=== PATIENT | male | born 1940 | race Caucasian/White ===

== ENCOUNTER 2020-02-04 23:05 | Inpatient (IN) | payer MEDICARE, OTHER, SELFPAY ==
[2020-02-04 23:07] VITALS: BP 144/90; PULSE 120; RESP 36; TEMP 36.4; O2SAT 96; BMI 29.5
--- NOTE | 2020-02-04 23:17 | ECG_ITS ---
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 Measurements Intervals [place] Rate: 121 P: ID: -1 QRS: 82 QRSD: 114 T: 0 QT: 304 QTc: 432 Interpretive Statements ATRIAL FLUTTER/TACHYCARDIA WITH RAPID VENTRICULAR RESPONSE MODERATE INTRAVENTRICULAR CONDUCTION DELAY [110+ ms QRS DURATION] NONSPECIFIC ST & T-WAVE ABNORMALITY ABNORMAL RHYTHM ECG Compared to ECG 01/28/2017 22:44:35 Intraventricular conduction delay now present Sinus rhythm no longer present T-wave abnormality still present Electronically Signed On 02-06-2020 16:23:07 CDT by Eduardo Lake M.D. [id number]
--- NOTE | 2020-02-04 23:17 | XR_ITS ---
WS: [id number] PORTABLE CHEST HISTORY: cp COMPARISON: 12/07/2019 Mild pulmonary hyperinflation. Slight elevation of the RIGHT hemidiaphragm. There is also blunting of the RIGHT diaphragm. Ill-defined opacification LEFT upper lobe. There is mild pulmonary congestion. Overall improved aeration since the prior study. Small RIGHT pleural effusion. Cardiac size: Moderately enlarged cardiac silhouette. Mediastinum/Aorta: Mild atherosclerosis aorta. No osseous abnormality seen. XR/XR chest 1V portable [id number] IMPRESSION: 1. Slight improvement in aeration bilaterally. 2. Small RIGHT pleural effusion with a few scattered opacifications which are probably edema or pneumonitis. 3. Moderate cardiomegaly.
--- NOTE | 2020-02-04 23:18 | ED_ITS ---
HPI - SOB/Dyspnea General: Chief Complaint: Shortness of Breath/Dyspnea Stated Complaint: sob Time Seen by Provider: 02/04/20 23:11 Source: patient Mode of arrival: ambulatory Limitations: no limitations History of Present Illness: HPI Narrative: 79-year-old male who states he has had increasing shortness of breath for weeks started having palpitations today as well. Patient states that his shortness of breath is worsened today and he is having difficulty walking without getting short of breath. Patient states he had increased swelling in his legs. He did is on Lasix 20 mg twice daily. Denies any fever or cough. He denies any chest pain. MD elicited complaint: shortness of breath Pertinent past history: congestive heart failure Onset (ago): week(s) Associated symptoms: Reports palpitations; Deny abdominal pain, fever(s), nausea or vomiting Review of Systems Const: Denies: fever(s), chills, body aches or change in appetite Eyes: Denies: blurry vision or eye discomfort ENMT: Denies: throat pain or dental pain Card: Reports: palpitations Resp: Reports: dyspnea GI: Denies: abdominal pain, nausea, vomiting or diarrhea : Denies: dysuria Musc: Denies: neck pain or back pain Skin/Breast: Denies: rash Neuro: Denies: headache(s) Psych: Denies: depression Deandre/Lymph: Denies: easy bruising All/Imm: Denies: urticaria PFSH ED PFSH: Medical History Adult hypothyroidism CHF (congestive heart failure) Gout, unspecified Sleep apnea Surgical History History of hernia repair Family History Other Hypertension Denies family history of Bleeding disorder Social History Smoking and tobacco status: never smoked Second hand smoke exposure: No Smoking risk assessment/counseling performed?: No Alcohol intake: never Desire information about alcohol rehabilitation?: No Counseling given: No Desire information about substance/drug rehabilitation?: No Counseling given: No Household members: spouse Marital status: Current occupational status: retired History of recent travel: No Current gender identity: Male Physical Exam Const: COMMON NORMALS: no acute distress, patient oriented x3 and healthy appearing HENMT: COMMON NORMALS: normocephalic and atraumatic HEAD & SCALP: normocephalic and atraumatic Eye: COMMON NORMALS: Equal, round and reactive pupils present and EOMs intact bilaterally PUPIL: Yes Equal, round and reactive pupils present Neck/C-Spine: COMMON NORMALS: full ROM and supple Chest: COMMONS NORMALS: normal inspection of the chest and normal palpation of entire chest wall Resp: COMMON NORMALS: normal respiratory effort, No retractions, No use of accessory muscles and clear to auscultation bilaterally AUSCULTATION: clear to auscultation bilaterally Cardio: COMMON NORMALS: regular rhythm and No murmurs present (Cardio) RATE: tachycardic RHYTHM: regular rhythm GI: COMMON NORMALS: Normal to inspection, nondistended, normoactive bowel sounds present, Soft to palpation, non-tender and no masses PALPATION: Yes Soft to palpation Extremity: COMMON NORMALS: normal to inspection and full ROM NARRATIVE EXTREMITY EXAM: 2+ edema to lower extremities Neuro: COMMON NORMALS: patient oriented x3, moves all extremities and no focal motor deficits Psych: COMMON NORMALS: mental status grossly normal, Normal thought process present and cooperative THOUGHT PROCESS: Normal thought process present Skin: COMMON NORMALS: no rashes or lesions noted and no wounds GENERAL SKIN EXAM: no rashes or lesions noted Course Vital Signs: Vital signs: Vital Signs Temperature 97.5 F L 02/04/20 23:07 Pulse Rate 127 H 02/05/20 00:31 Respiratory Rate 26 H 02/05/20 00:31 Blood Pressure 125/90 02/05/20 00:31 Pulse Oximetry 99 02/05/20 00:31 MDM - SOB/Dyspnea MDM Narrative: Medical decision making narrative: Samm presents here with shortness of breath with CHF exacerbation. CT shows bilateral pulmonary edema with effusions. Patient given IV Lasix here and is improving on BiPAP. Patient is also in atrial flutter and started on a Cardizem drip. Will admit to the cardiac stepdown unit. Lab Data: Labs: Lab Results 02/04/20 02/04/20 02/04/20 Range/Units 23:25 23:25 23:25 WBC 13.7 H (4.0-10.0) 10^3/ uL RBC 4.91 (4.1-5.3) 10^6/u L Hgb 15.9 (11.7-16.6) g/dL Hct 51.9 (42.0-52.0) % MCV 105.7 H (80-94) fL MCH 32.4 (28.0-34.0) pg MCHC 30.6 (30.0-36.0) g/dL RDW 18.0 H (12.1-15.1) % Plt Count 269 (130-400) 10^3/c mm MPV 9.6 (7.4-10.4) fL Neut % (Auto) 78.4 % Lymph % (Auto) 9.4 % [place] % (Auto) 10.7 % Eos % (Auto) 0.4 % Baso % (Auto) 0.5 % Neut # (Auto) 10.70 H (1.8-7.7) 10^3/u L Lymph # (Auto) 1.3 (0.8-4.8) 10^3/u L [place] # (Auto) 1.5 H (0.2-0.9) 10^3/u L Eos # (Auto) 0.1 (0.0-0.8) 10^3/u L Baso # (Auto) 0.1 (0.0-0.1) 10^3/u L Nucleated RBC % (a uto) 0 % Nucleated RBCs # 0.0 /100WBC PT 17.80 H (10.5-13.3) SECO NDS INR 1.42 H (0.8-1.2) D-Dimer 3.30 H (0-0.59) ug/mIFE U Specimen Type Sample Site ABG pH (7.35-7.45) ABG pCO2 (35-45) mmHg ABG pO2 (80.0-100.0) mmH g ABG HCO3 (22-26) mmol/L ABG Base Excess (-2.0-2.0) mmol/ L Edmundo Test Hematocrit (42-52) % O2 Delivery Device FiO2 % Snath Handle Assembler ID Sodium 139 (136-145) mmol/L Potassium 5.5 H (3.5-5.1) mmol/L Chloride 100 (98-107) mmol/L Carbon Dioxide 23 (22-29) mmol/L Anion Gap 21.5 H (5-19) BUN 34 H (8-23) mg/dL Creatinine 1.4 H (0.7-1.2) mg/dL Glucose 124 H (65-115) mg/dL POC Glucose (70-110) mg/dL Calculated Osmolal ity 287 (285-295) mOsm/k g Calcium 9.9 (8.5-10.5) mg/dL Total Bilirubin 1.6 H (0.15-1.2) mg/dL AST 49 H (0-40) U/L ALT 37 (0-41) U/L Alkaline Phosphata se 235 H (40-130) IU/L Troponin T Baselin e (0-15) ng/L Troponin T 120 Min stebbins (0-15) ng/L Delta Troponin T (0-10) ABS# NT-Pro-B Natriuret Pep 81168 H (0-450) pg/mL Total Protein 7.6 (6.6-8.7) g/dL Albumin 3.9 (3.5-5.2) g/dL Globulin 3.7 (1.3-4.6) g/dL 02/04/20 02/04/20 02/04/20 Range/Units 23:25 23:43 23:50 WBC (4.0-10.0) 10^3/ uL RBC (4.1-5.3) 10^6/u L Hgb (11.7-16.6) g/dL Hct (42.0-52.0) % MCV (80-94) fL MCH (28.0-34.0) pg MCHC (30.0-36.0) g/dL RDW (12.1-15.1) % Plt Count (130-400) 10^3/c mm MPV (7.4-10.4) fL Neut % (Auto) % Lymph % (Auto) % [place] % (Auto) % Eos % (Auto) % Baso % (Auto) % Neut # (Auto) (1.8-7.7) 10^3/u L Lymph # (Auto) (0.8-4.8) 10^3/u L [place] # (Auto) (0.2-0.9) 10^3/u L Eos # (Auto) (0.0-0.8) 10^3/u L Baso # (Auto) (0.0-0.1) 10^3/u L Nucleated RBC % (a uto) % Nucleated RBCs # /100WBC PT (10.5-13.3) SECO NDS INR (0.8-1.2) D-Dimer (0-0.59) ug/mIFE U Specimen Type Arterial Sample Site Radial, left ABG pH 7.44 (7.35-7.45) ABG pCO2 32.8 L (35-45) mmHg ABG pO2 89.5 (80.0-100.0) mmH g ABG HCO3 22.3 (22-26) mmol/L ABG Base Excess -1.0 (-2.0-2.0) mmol/ L Edmundo Test Pos Hematocrit 45.5 (42-52) % O2 Delivery Device Bipap FiO2 35.0 % Snath Handle Assembler ID ellpe Sodium (136-145) mmol/L Potassium (3.5-5.1) mmol/L Chloride (98-107) mmol/L Carbon Dioxide (22-29) mmol/L Anion Gap (5-19) BUN (8-23) mg/dL Creatinine (0.7-1.2) mg/dL Glucose (65-115) mg/dL POC Glucose 113 (70-110) mg/dL Calculated Osmolal ity (285-295) mOsm/k g Calcium (8.5-10.5) mg/dL Total Bilirubin (0.15-1.2) mg/dL AST (0-40) U/L ALT (0-41) U/L Alkaline Phosphata se (40-130) IU/L Troponin T Baselin e 88 H (0-15) ng/L Troponin T 120 Min stebbins (0-15) ng/L Delta Troponin T (0-10) ABS# NT-Pro-B Natriuret Pep (0-450) pg/mL Total Protein (6.6-8.7) g/dL Albumin (3.5-5.2) g/dL Globulin (1.3-4.6) g/dL /20/20 Range/Units 01:37 WBC (4.0-10.0) 10^3/ uL RBC (4.1-5.3) 10^6/u L Hgb (11.7-16.6) g/dL Hct (42.0-52.0) % MCV (80-94) fL MCH (28.0-34.0) pg MCHC (30.0-36.0) g/dL RDW (12.1-15.1) % Plt Count (130-400) 10^3/c mm MPV (7.4-10.4) fL Neut % (Auto) % Lymph % (Auto) % [place] % (Auto) % Eos % (Auto) % Baso % (Auto) % Neut # (Auto) (1.8-7.7) 10^3/u L Lymph # (Auto) (0.8-4.8) 10^3/u L [place] # (Auto) (0.2-0.9) 10^3/u L Eos # (Auto) (0.0-0.8) 10^3/u L Baso # (Auto) (0.0-0.1) 10^3/u L Nucleated RBC % (a uto) % Nucleated RBCs # /100WBC PT (10.5-13.3) SECO NDS INR (0.8-1.2) D-Dimer (0-0.59) ug/mIFE U Specimen Type Sample Site ABG pH (7.35-7.45) ABG pCO2 (35-45) mmHg ABG pO2 (80.0-100.0) mmH g ABG HCO3 (22-26) mmol/L ABG Base Excess (-2.0-2.0) mmol/ L Edmundo Test Hematocrit (42-52) % O2 Delivery Device FiO2 % Snath Handle Assembler ID Sodium (136-145) mmol/L Potassium (3.5-5.1) mmol/L Chloride (98-107) mmol/L Carbon Dioxide (22-29) mmol/L Anion Gap (5-19) BUN (8-23) mg/dL Creatinine (0.7-1.2) mg/dL Glucose (65-115) mg/dL POC Glucose (70-110) mg/dL Calculated Osmolal ity (285-295) mOsm/k g Calcium (8.5-10.5) mg/dL Total Bilirubin (0.15-1.2) mg/dL AST (0-40) U/L ALT (0-41) U/L Alkaline Phosphata se (40-130) IU/L Troponin T Baselin e (0-15) ng/L Troponin T 120 Min stebbins 69.22 H (0-15) ng/L Delta Troponin T -18.78 L (0-10) ABS# NT-Pro-B Natriuret Pep (0-450) pg/mL Total Protein (6.6-8.7) g/dL Albumin (3.5-5.2) g/dL Globulin (1.3-4.6) g/dL Imaging Data^: CT Chest: Attestation: I personally reviewed and interpreted this imaging study as follows: Radiologist's impression: [address] [address] [address] Scan Report Signed Patient: Samm Dong Unit #: [id number] : 1940 Age/Sex: 79 / M ADM Date: 02/04/20 Loc: ER Room/Bed: Attending Dr: Ordering Provider/Ordering MD: Lavell Melchor MD Date of Service: 02/05/20 Procedure(s): CT angio chest PE protcl [id number] Accession Number(s): [id number] Report Number: [id number] PROCEDURE INFORMATION: Exam: CT Angiography Chest With Contrast Exam date and time: 02/05/2020 12:41 AM Age: 79 years old Clinical indication: Abnormal findings; Abnormal diagnostic tests; Elevated d-dimer; Dyspnea TECHNIQUE: Imaging protocol: Computed tomographic angiography of the chest with intravenous contrast. 3D rendering: MIP and/or 3D reconstructed images were created by the technologist. Radiation optimization: All CT scans at this facility use at least one of these dose optimization techniques: automated exposure control; mA and/or kV adjustment per patient size (includes targeted exams where dose is matched to clinical indication); or iterative reconstruction. Contrast material: OMNI 300; Contrast volume: 95 ml; Contrast route: INTRAVENOUS (IV); COMPARISON: CR XR chest 1V portable [id number] 02/04/2020 11:21 PM RADIATION DOSE METRICS: Total DLP (mGy-cm): 629.34 FINDINGS: Limitations: Suboptimal pulmonary arterial enhancement. Motion on multiple slices. Streak artifacts. Pulmonary arteries: No large central pulmonary embolus or suggestion of a segmental embolus on the left. Suboptimal opacification of the right segmental pulmonary arteries, with no obvious large embolus in these areas. Small pulmonary arteries not adequately visualized for evaluation. Aorta: Atherosclerosis. No aortic aneurysm. Inadequate aortic opacification to evaluate for dissection. Lungs: Calcified granulomata in the lungs. Increased interstitial markings and slight patchy haziness in both lungs. Prominent subsegmental atelectasis in the lower right lung. Pleural space: Moderate right and minimal left pleural effusions. No pneumothorax. Heart: Continued prominent cardiomegaly. Small amount of pericardial fluid. Mediastinal space: Small hiatal hernia. Lymph nodes: Enlarged noncalcified node in the right superior mediastinum. Probable enlarged noncalcified pretracheal node. Calcified mediastinal and bilateral hilar nodes also evident. Kidneys and ureters: 1 very small stone in each kidney. Slight bilateral hydronephrosis. At least 3 masses in the right kidney containing higher than water density, the largest measuring about 4 cm. Intraperitoneal space: Ascites. Bones/joints: Thirteen ribs bilaterally. Old compression fractures. Degeneration of a few discs. Left glenohumeral joint degeneration. Soft tissues: Body wall edema. CT/CT angio chest PE protcl [id number] IMPRESSION: 1. Suboptimal pulmonary arterial opacification showing no suggestion of a large central pulmonary embolus. 2. Continued prominent cardiomegaly. No large pericardial effusion. 3. Lung findings suggestive of pulmonary edema. Prominent subsegmental atelectasis in the lower right lung, also. Moderate right and minimal left pleural effusions and body wall edema increasing the likelihood of congestive failure. 4. Ascites. 5. Slight nephrolithiasis. Slight bilateral hydronephrosis. Three right renal masses containing higher than water density. Recommend non-emergent follow-up MR without and with contrast or CT without and with contrast. MR preferred for masses under 1.5 cm. 6. Enlarged noncalcified mediastinal nodes. Calcified mediastinal and bilateral hilar nodes also evident related to the calcified granulomata in the lungs. 7. Small hiatal hernia. Other findings detailed above. EKG Data^: EKG 1: Attestation: I personally reviewed and interpreted this EKG as follows: EKG Interpretation Date: 02/04/20 EKG interpretation time: 23:25 Interpretation: atrial flutter hr [address] or t wave abnormalities qrs 114 qtc 376 EKG 2: Attestation: I personally reviewed and interpreted this EKG as follows: EKG Interpretation Date: 02/05/20 EKG interpretation time: 01:58 Interpretation: atrial flutter hr [address] or t wave abnormalities qrs 109 qtc 390 Critical Care Time Critical Care Time: Critical Care Time: Yes Total Critical Care Time: 36 Attestation: This case had a high probability of a clinically significant, sudden, or life threatening deterioration of this patient's condition which required my full and direct attention, intervention and personal management. Discharge Plan Discharge Patient Disposition: Admitted As Inpatient Admit Provider: Evin Samuels Clinical Impression: CHF (congestive heart failure) Qualifiers: Heart failure type: unspecified Heart failure chronicity: acute on chronic Qualified Code(s): I50.9 - Heart failure, unspecified Atrial flutter Qualifiers: Atrial flutter type: typical Qualified Code(s): I48.3 - Typical atrial flutter Condition: Stable Coding Level of Care Code ED Warehousing Technician for Chg Fwd Exam Comprehensive
[2020-02-04 23:29] LABS: Basophils # 0.1 10^3/uL (0.0-0.1); Basophils % 0.5 %; Eosinophils # 0.1 10^3/uL (0.0-0.8); Eosinophils % 0.4 %; Hematocrit 51.9 % (42.0-52.0); Hemoglobin 15.9 g/dL (11.7-16.6); Lymphocytes # 1.3 10^3/uL (0.8-4.8); Lymphocytes % 9.4 %; Mean Corpuscular HGB Conc 30.6 g/dL (30.0-36.0); Mean Corpuscular Hemoglobin 32.4 pg (28.0-34.0); Mean Corpuscular Volume 105.7 fL (80-94); Mean Platelet Volume 9.6 fL (7.4-10.4); Monocytes # 1.5 10^3/uL (0.2-0.9); Monocytes % 10.7 %; Neutrophils % 78.4 %; Nucleated Red Blood Cells % 0 %; Platelet Count 269 10^3/cmm (130-400); Red Blood Count 4.91 10^6/uL (4.1-5.3); White Blood Count 13.7 10^3/uL (4.0-10.0)
[2020-02-04 23:43] VITALS: BP 139/92; PULSE 127; RESP 15; O2SAT 93
[2020-02-04] MEDS: FUROsemide 10 mg/mL SDV 10mL 60 MG IVP (23:43)
[2020-02-04 23:46] LABS: Glucose Point of Care 113 mg/dL (70-110)
[2020-02-04 23:53] LABS: Troponin(5th) Baseline 88 ng/L (0-15)
[2020-02-05] VITALS (20 sets, daily range): BP systolic 96–140; BP diastolic 56–92; PULSE 76–127; RESP 15–26; TEMP 36.3–37.1; O2SAT 89–99
[2020-02-05] LABS: ABG PCO2 32.8 mmHg (35-45); ABG PH Result 7.44 (7.35-7.45); Arterial Blood Gas Hematocrit 45.5 % (42-52); Blood Gas Allen Test Pos; Blood Gas Sample Site Radial, left; Blood Gas Sample Type Arterial; HCO3 ABG 22.3 mmol/L (22-26); Oxygen Device BIPAP; PO2 ABG 89.5 mmHg (80.0-100.0)
[2020-02-05 00:01] LABS: Alanine Aminotransferase 37 U/L (0-41); Albumin Level 3.9 g/dL (3.5-5.2); Alkaline Phosphatase 235 IU/L (40-130); Aspartate Amino Transferase 49 U/L (0-40); Blood Urea Nitrogen 34 mg/dL (8-23); Calcium 9.9 mg/dL (8.5-10.5); Carbon Dioxide 23 mmol/L (22-29); Chloride 100 mmol/L (98-107); Globulin 3.7 g/dL (1.3-4.6); Glucose 124 mg/dL (65-115); NT Pro B Type Natriuretic Pept 14768 pg/mL (0-450); Osmolality Calculated 287 mOsm/kg (285-295); Sodium 139 mmol/L (136-145); Total Bilirubin 1.6 mg/dL (0.15-1.2); Total Protein 7.6 g/dL (6.6-8.7)
[2020-02-05 00:03] LABS: Anion Gap 21.5 (5-19); Potassium 5.5 mmol/L (3.5-5.1)
[2020-02-05 00:05] LABS: INR 1.42 (0.8-1.2)
--- NOTE | 2020-02-05 00:19 | CTR_ITS ---
PROCEDURE INFORMATION: Exam: CT Angiography Chest With Contrast Exam date and time: 02/05/2020 12:41 AM Age: 79 years old Clinical indication: Abnormal findings; Abnormal diagnostic tests; Elevated d-dimer; Dyspnea TECHNIQUE: Imaging protocol: Computed tomographic angiography of the chest with intravenous contrast. 3D rendering: MIP and/or 3D reconstructed images were created by the technologist. Radiation optimization: All CT scans at this facility use at least one of these dose optimization techniques: automated exposure control; mA and/or kV adjustment per patient size (includes targeted exams where dose is matched to clinical indication); or iterative reconstruction. Contrast material: OMNI 300; Contrast volume: 95 ml; Contrast route: INTRAVENOUS (IV); COMPARISON: CR XR chest 1V portable [id number] 02/04/2020 11:21 PM RADIATION DOSE METRICS: Total DLP (mGy-cm): 629.34 FINDINGS: Limitations: Suboptimal pulmonary arterial enhancement. Motion on multiple slices. Streak artifacts. Pulmonary arteries: No large central pulmonary embolus or suggestion of a segmental embolus on the left. Suboptimal opacification of the right segmental pulmonary arteries, with no obvious large embolus in these areas. Small pulmonary arteries not adequately visualized for evaluation. Aorta: Atherosclerosis. No aortic aneurysm. Inadequate aortic opacification to evaluate for dissection. Lungs: Calcified granulomata in the lungs. Increased interstitial markings and slight patchy haziness in both lungs. Prominent subsegmental atelectasis in the lower right lung. Pleural space: Moderate right and minimal left pleural effusions. No pneumothorax. Heart: Continued prominent cardiomegaly. Small amount of pericardial fluid. Mediastinal space: Small hiatal hernia. Lymph nodes: Enlarged noncalcified node in the right superior mediastinum. Probable enlarged noncalcified pretracheal node. Calcified mediastinal and bilateral hilar nodes also evident. Kidneys and ureters: 1 very small stone in each kidney. Slight bilateral hydronephrosis. At least 3 masses in the right kidney containing higher than water density, the largest measuring about 4 cm. Intraperitoneal space: Ascites. Bones/joints: Thirteen ribs bilaterally. Old compression fractures. Degeneration of a few discs. Left glenohumeral joint degeneration. Soft tissues: Body wall edema. CT/CT angio chest PE protcl [id number] IMPRESSION: 1. Suboptimal pulmonary arterial opacification showing no suggestion of a large central pulmonary embolus. 2. Continued prominent cardiomegaly. No large pericardial effusion. 3. Lung findings suggestive of pulmonary edema. Prominent subsegmental atelectasis in the lower right lung, also. Moderate right and minimal left pleural effusions and body wall edema increasing the likelihood of congestive failure. 4. Ascites. 5. Slight nephrolithiasis. Slight bilateral hydronephrosis. Three right renal masses containing higher than water density. Recommend non-emergent follow-up MR without and with contrast or CT without and with contrast. MR preferred for masses under 1.5 cm. 6. Enlarged noncalcified mediastinal nodes. Calcified mediastinal and bilateral hilar nodes also evident related to the calcified granulomata in the lungs. 7. Small hiatal hernia. Other findings detailed above. Radiation Dose CTDIVOL = (mGy): DLP = 629.34 (mGy-cm)
--- NOTE | 2020-02-05 01:17 | ECG_ITS ---
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 Measurements Intervals [place] Rate: 125 P: CO: -1 QRS: 59 QRSD: 109 T: 0 QT: 316 QTc: 457 Interpretive Statements ATRIAL FLUTTER/TACHYCARDIA WITH RAPID VENTRICULAR RESPONSE NONSPECIFIC ST & T-WAVE ABNORMALITY ABNORMAL RHYTHM ECG Compared to ECG 02/04/2020 23:25:58 Intraventricular conduction delay no longer present T-wave abnormality still present Electronically Signed On 02-06-2020 16:28:04 CDT by Eduardo Lake M.D. [id number]
[2020-02-05 01:57] LABS: Troponin 5 2HR 69.22 ng/L (0-15)
--- NOTE | 2020-02-05 02:23 | PM.HP ---
Providers/Chief Complaint Admitting Physician: Evin Samuels Chief Complaint: sob History of Present Illness Samm Dong is a 79 year old pleasant gentleman brought in for evaluation by his spouse due to progressive shortness of breath over several weeks. Patient has memory problems and so is unable to provide more more history than that his felt he was short of breath and made him go get assessed. His states that close to a month ago he was diagnosed with heart failure. He was started on HCTZ initially by Dr. Hartmann, however, says this was insufficient, and subsequently had to be switched to Lasix. says she has been giving him a 99 mg potassium supplement daily as was told that he may get depleted by diuretics. They both deny that he had had any cough or fever. He denies any chest pain. reports perhaps some on and off chest discomfort previously. Not currently. Neither is aware of him having history of atrial fibrillation in the past. He states that his appetite has been good, however, she states that on and off he has been eating a little bit less recently. He denies any abdominal pain. Neither is aware of him having history of chronic kidney disease. He does not follow with any wound care. is the one changing the dressings on his left ankle. She apply Santyl to it. Keeps it covered. He has a very long history of wounds on that ankle following surgery for fracture repair which she says happened in the s. Subsequently complications including osteomyelitis, and treatments including hyperbaric oxygen chamber. is reluctant about returning to wound care clinic and prefers to follow-up with only a PCP. In ER due to shortness of breath he required initiation of BiPAP support. Received a dose of 60 mg IV Lasix. His respiration is gradually improved. During my visit we took down the BiPAP mask. He is not normally on oxygen. He was saturating in the 90s, drifting down to low 90s through the conversation, however, by the end was getting somewhat more dyspneic, so BiPAP mask was replaced. He is noted with new atrial fibrillation with RVR, heart rates in 120s. Did not improve very much after Cardizem boluses, and so was started on Cardizem drip. He is noted with leukocytosis of 13.7. There is acute kidney injury of chronic kidney disease with creatinine of 1.4. Potassium mildly elevated at 5.5. There is mild elevation of bilirubin at 1.6, AST at 49. Alkaline phosphatase moderately elevated at 235. Baseline normal back in 2017, but no intervening values are available. BNP is elevated at 14,768. First troponin is 88. Second 69.22. He denies any chest pain. Denies any abdominal pain. Says that he is hungry. He says his made him come in due to shortness of breath, but he himself was not overly worried. He went ahead and replace his BiPAP mask shortly after due to progressive return of dyspnea. In ER he has made a liter of urine. CTA of the chest performed in ER due to elevated d-dimer, dyspnea, new A. fib did not show any PE, no focal pneumonia. There is cardiomegaly, congestive changes and edema. Anasarca. Moderate right pleural effusion. Nonobstructing renal stones, mild bilateral hydronephrosis. 3 right renal masses noted incidentally, largest measuring 4 cm. Incidentally noted mediastinal calcified nodes. Small hiatal hernia. Review of Systems Const: Reports: change in appetite (Reported by , not by patient); Denies: fever(s), chills, body aches or malaise Eyes: Denies: change in vision or eye redness ENMT: Denies: throat pain, oral sores or ear or mastoid pain Card: Denies: chest pain, edema, pre-syncope or dyspnea on exertion Resp: Denies: dyspnea, productive cough, change in phlegm color or hemoptysis GI: Denies: abdominal pain, nausea, vomiting, diarrhea, constipation, hematochezia or melena : Denies: flank pain, difficulty urinating, urinary frequency or hematuria Musc: Denies: back pain, joint swelling or joint redness Skin/Breast: Denies: rash, sores or new lesions Neuro: Denies: headache(s), numbness in extremities, weakness in extremities, dizziness, confusion or seizure-like activity Endo: Denies: polyuria or polydipsia Deandre/Lymph: Denies: easy bleeding or purpura All/Imm: Denies: urticaria, throat swelling or tongue swelling Medications/Allergies Home Medications Medication Instructions Recorded Confirmed Last Taken Type thyroid (pork) 60 mg tablet 60 mg PO DAILY #90 tab 01/09/20 01/09/20 Unknown Rx collagenase clostridium histo. 250 1 applic TOPICAL DAILY PRN #30 gm 01/18/20 01/18/20 Unknown Rx unit/gram topical ointment furosemide 20 mg tablet 20 mg PO BID PRN #60 tab 01/18/20 01/18/20 Unknown Rx Allergies Allergy/AdvReac Type Severity Reaction Status Date / Time Penicillins Allergy Unknown Unknown Verified 01/09/20 15:28 vancomycin Allergy Unknown Unknown Verified 01/09/20 15:29 PFSH Acute PFSH: Medical History Adult hypothyroidism CHF (congestive heart failure) Chronic wound of extremity Cognitive dysfunction Gout, unspecified HTN (hypertension) Sleep apnea Surgical History (Updated 02/05/20 @ 03:14 by Evin Samuels MD) History of ankle surgery History of hernia repair Family History Other Hypertension Denies family history of Bleeding disorder Social History Smoking and tobacco status: never smoked Second hand smoke exposure: No Smoking risk assessment/counseling performed?: No Alcohol intake: never Desire information about alcohol rehabilitation?: No Counseling given: No Desire information about substance/drug rehabilitation?: No Counseling given: No Household members: spouse Marital status: Current occupational status: retired History of recent travel: No Current gender identity: Male Vitals/I&O/Wt Last Vital Signs Temp 97.5 F L 02/04/20 23:07 Pulse 124 H 02/05/20 02:16 Resp 23 H 02/05/20 02:16 BP 140/92 02/05/20 02:16 Pulse Ox 93 02/05/20 02:16 Weight last 48 hrs Weight 78.018 kg Physical Exam Const: COMMON NORMALS: no acute distress and patient oriented x3 GENERAL APPEARANCE: frail appearing OTHER: Not a good historian. HENMT: COMMON NORMALS: oropharynx normal Neck/C-Spine: COMMON NORMALS: no JVD Resp: COMMON NORMALS: normal respiratory effort AUSCULTATION: diminished lung sounds Cardio: COMMON NORMALS: no JVD, regular rhythm, S1 normal heart sound present, S2 normal heart sound present and No murmurs present (Cardio) RATE: tachycardic RHYTHM: abnormal rhythm irregularly irregular HEART SOUNDS: S1 normal heart sound present and S2 normal heart sound present GI: COMMON NORMALS: Normal to inspection, nondistended, normoactive bowel sounds present, Soft to palpation and non-tender (No RUQ or other abdominal tenderness on deep palpation.) PALPATION: Yes Soft to palpation Extremity: COMMON NORMALS: no joint enlargement GENERAL: Yes edema (Bilateral lower extremity edema, right greater than left.) Neuro: COMMON NORMALS: patient oriented x3 and moves all extremities Skin: LESIONS: lesion noted (Chronic ulcerations on anterior lower leg, with 4 different size ulcerations with irregular borders, largest about 3 x 3 cm, shallow, with purulent appearing base, no tunneling or undermining.) RASHES: other (Chronic bilateral venous stasis changes.) Data : 02/04/20 23:25 02/04/20 23:25 A&P Assessment and plan (1) Acute respiratory failure with hypoxia: With progressive dyspnea over several weeks. On exam grossly edematous, with anasarca noted on imaging. In acute congestive heart failure. New onset atrial flutter with RVR. There is some leukocytosis, however, he denies any cough, any fever, and there is no focal appearing infiltrate on imaging, and so pneumonia at this time is rather unlikely. Required BiPAP support in ER. Received a dose of Lasix. So far produced 1 L of urine. Respirations have improved. At the time of my visit still was requiring some BiPAP support. Attempt to wean as tolerating down to nasal cannula. He tells me he is not on oxygen at baseline. No PE on CTA. Incidentally noted mediastinal calcified nodes. Status: Acute (2) CHF (congestive heart failure): In active congestive heart failure. Reportedly known congestive heart failure, although I do not see prior echo. He does not have chest pain. Does have some mild troponin elevation which appears to be trending down. Discussed with his cannot exclude that he may have not have had a RI sometime ago. Will complete trend to exclude acute RI. Will check TSH. Treat atrial flutter with RVR. Diuretic therapy with Lasix at this time. Reportedly previously was on HCTZ, but that was not enough to keep the fluid off. Once heart rate is little bit better should be assessed by TTE which is ordered. Status: Chronic Qualifiers: Heart failure chronicity: acute on chronic Heart failure type: unspecified Qualified Code(s): I50.9 - Heart failure, unspecified (3) Atrial flutter: New onset atrial flutter. With RVR. Did not respond well to Cardizem boluses. Started on Cardizem drip. Admitted to [facility]. Mild hyperkalemia. Complete troponin EKG series to exclude myocardial ischemia as the cause. Check TSH. TTE once able to. Would benefit from additional risk stratification with stress testing once he is able to undergo this given new onset atrial flutter to exclude underlying coronary disease. Discussed with with regards to stroke risk. She is concerned starting anticoagulation given he is fallen about 2 times in the past week. He is at elevated risk of bleeding due to this. She prefers to start aspirin at this time. Status: Acute Qualifiers: Atrial flutter type: typical Qualified Code(s): I48.3 - Typical atrial flutter (4) Cholestasis: Appears to perhaps have some cholestasis with moderate elevation of alkaline phosphatase, mild elevation of T bili, AST. He has absolutely no right upper quadrant tenderness. Appetite is unchanged. No fever. No other symptoms to suggest cholecystitis or cholangitis. Perhaps there is some degree of congestive hepatopathy similarly to other affected organ systems due to his CHF. Will assess with right upper quadrant ultrasound. For now due to this is n.p.o. Discussed with the , she is in agreement not to start additional antibiotics at this time as there is no compelling evidence of acute infection. Status: Acute (5) Leukocytosis: Not entirely clear reason for leukocytosis. I do suspect that she is having a degree of cellulitis in his left ankle wound, there is also some purulent discharge at the bases of the shallow ulcerations. I do not see tunneling or undermining. Will request for culture of the purulent material. For now start doxycycline. He does not follow with wound care clinic, and is reluctant to return there. Prefers to follow-up with PCP for now and will consider whether to follow-up with wound care again. Discussed with her to make sure follow-up with regards to this as he may need additional assessment to exclude again recurrence of osteomyelitis in case of persistent purulent drainage. He has known history of osteomyelitis previously as a complication after nonhealing wounds following surgical fracture repair over 2 decades ago. At this time pulmonary infection or hepatobiliary infection is considered less likely. Keep on differential for now, follow-up as needed, and with low threshold for additional assessment of these are other symptoms that may evolve to be suspicious for infection. Status: Acute (6) Chronic wound of extremity: As above. For now we will treat with antibiotic with MRSA coverage given appears to have some wound infection. Culture. Wound care orders, continue treatment with Santyl as they do at home, his reports prior success with this. Absorbent dressing. We will need close outpatient reassessment and possibly additional evaluation for osteomyelitis depending on clinical course. Status: Acute (7) Hyperkalemia: For now n.p.o. Subsequently consider low potassium diet. Hold potassium supplements which says has been giving him due to diuretic therapy. Discussed with her to hold off on these at this time until can follow-up in outpatient clinic with follow-up renal function and potassium levels. Status: Acute (8) Acute kidney injury: Acute kidney injury versus chronic kidney disease. Creatinine 1.4. Baseline is unknown recently. For now unfortunately may be acute kidney injury perhaps secondary to CHF, similarly to congestive changes in his lungs, liver, etc. Possibly right heart failure. For now we will diurese and perhaps may actually see some improvement, but will monitor renal function, I&O. If creatinine is worsening may be a significant limiting factor and predict her prognosis for treatment of his CHF. denies any NSAIDs taken at home. There is mild hydronephrosis noted bilaterally. Nonobstructing calculi. Will assess with kidney and bladder ultrasound to see if there is any bladder dilation. Perhaps may be bladder outflow problem. Status: Acute (9) Troponin level elevated: Follow troponin trend. He is chest pain-free. This appears to be decreasing. With CHF, cannot exclude has not had an RI sometime in the past. For now we will start on aspirin. Check TTE. Once he is able to, discussed with would also benefit from stress testing. She verbalized understanding and agreement. Status: Acute (10) Coagulopathy: Perhaps secondary to congestive hepatopathy. Reassess. Status: Acute (11) Pleural effusion: Incidentally noted pleural effusion on CTA. Suspected due to CHF. Diuresis as above. If respiratory status worsening, consider thoracentesis. Status: Acute (12) Renal mass: Incidentally noted right side 3 renal masses, largest 4 cm. Discussed with his . Will need to be set up with additional follow-up imaging. Status: Acute (13) Anasarca: Secondary to CHF. Treatment as above. Status: Acute (14) Cognitive dysfunction: Possibly development of dementia. Monitor. Status: Acute Attestations Medical Necessity Statement*: Admission of over 2 midnights is going to be needed for assessment of management of respiratory failure with hypoxia, anasarca, CHF with acute kidney injury, cholestasis versus congestive hepatopathy, atrial flutter with RVR, and other medical problems as outlined above. Coding Level of Care Code Acute [employer] Processing Technician for [facility] Diagnoses Acute respiratory failure with hypoxia J96.01 CHF (congestive heart failure) I50.9 Heart failure chronicity: acute on chronic Heart failure type: unspecified Atrial flutter I48.3 Atrial flutter type: typical Cholestasis K83.1 Leukocytosis D72.829 Chronic wound of extremity Hyperkalemia E87.5 Acute kidney injury N17.9 Troponin level elevated R79.89 Coagulopathy D68.9 Pleural effusion J90 Renal mass N28.89 Anasarca R60.1 Cognitive dysfunction F09
--- NOTE | 2020-02-05 02:52 | PC.NURSE ---
verified two home medications. She states these are the only 2 doctor prescribed medications that he takes. states that he takes many over the counter supplements, but stated I will look for them and call you back during daylight hours.
--- NOTE | 2020-02-05 02:54 | ECG_ITS ---
[facility] Test Date: 2020-02-05 Pat Name: Samm Dong Department: Room: 107 Gender: Male Recruiting Specialist: : 1940 Requested By: Evin Samuels Order Number: [id number] Peewee MD: Eduardo Lake M.D. Measurements Intervals [place] Rate: 124 P: ID: -1 QRS: 9 QRSD: 108 T: 240 QT: 320 QTc: 461 Interpretive Statements ATRIAL FLUTTER/TACHYCARDIA WITH RAPID VENTRICULAR RESPONSE NONSPECIFIC ST & T-WAVE ABNORMALITY INTERPRETATION BASED ON A DEFAULT AGE OF 40 YEARS Compared to ECG 02/05/2020 01:58:29 No significant changes Electronically Signed On 02-06-2020 16:28:09 CDT by Eduardo Lake M.D. [id number]
--- NOTE | 2020-02-05 02:56 | US_ITS ---
WS: [id number] Complete ABDOMINAL ULTRASOUND HISTORY: Abnormal liver parameters, COMPARISON: 02/05/2020 Liver: 23.2 cm in length. Liver is moderately enlarged. Surface of the liver is slightly irregular. N o mass or bile duct dilatation. Gallbladder: Normally distended gallbladder with stones. Gallbladder is not overly distended. The wal l is slightly and diffusely thickened. No pericholecystic fluid. Gallbladder wall thickness: 0.5 cm. Pancreas: Normal size and echogenicity. CBD: 0.5 cm. Right kidney: 10.2 cm x 6.2 cm x 5.3 cm. Normal size kidney. Several small cysts associated with the RIGHT kidney. The largest from the superior pole measures 3.8 x 3.9 x 3.0 cm. Some of these low-atte nuation masses are too small to characterize. Left kidney: 9.9 cm x 5.5 cm x 5.4 cm. No solid mass. Cortical cyst mid kidney measures 1.4 x 1.5 x 1.3 cm. Spleen: Spleen is slightly enlarged at 14.1 cm. IVC is dilated. Aorta is poorly visualized. Small amount of ascites and small RIGHT pleural effusion. US/US abdomen complete* [id number] IMPRESSION: 1. Small amount of ascites, small RIGHT pleural effusion. 2. Hepatomegaly and mild splenomegaly. 3. Cholelithiasis. Mild diffuse gallbladder wall thickening may be on the basis of ascites and hepatocellular disease. 4. Bilateral renal cysts. Some of these cystic masses are too small to gerda doty.
--- NOTE | 2020-02-05 03:02 | PC.NURSE ---
Patient arrived to the floor from the ED with [employer] gtt running at 10. Patient is able to answer where he is at and what year it is. Patient is unable to answer to what medications he takes a home and most of the admission questions. Patient has been oriented to his room and call light within reach.
--- NOTE | 2020-02-05 03:18 | USCV_ITS ---
IkerSamm diaz Age: 79 Gender: M : 1940 Exam Date: 02/05/2020 05:58 Ordering Phys: Evin Samuels MD Technologist: Nuris Miranda [place] [facility] [place]: SWOLLEN LEGS HISTORY: SWOLLEN LEGS PROCEDURES: The venous duplex Doppler examination of both lower extremities was performed in the standard fashion. The following venous structures were evaluated: common femoral vein, profunda vein, proximal portion of the greater saphenous vein, superficial femoral vein, and the popliteal vein. In addition, the posterior tibial and peroneal trunk were evaluated. Serial compression, augmentation maneuvers, and spectral Doppler flow evaluation were performed. FINDINGS: Normal 2-D Doppler and augmentation and compressibility throughout the lower extremity venous structures. Additional imaging through the proximal calf veins also reveals no thrombus. Limited evaluation of the greater saphenous vein is patent with no thrombus.. CONCLUSIONS No DVT bilateral lower extremities. Dr. Analy Conley DO (Electronically Signed) Final Date: 05 February 2020 09:16 S
--- NOTE | 2020-02-05 03:25 | PC.NURSE ---
Dr. Samuels notified of being unable to dopple a pulse in right foot, but able to dopple a pulse in left foot. Also notified of heart rate of 125 with Cardizem drip running at 15.
--- NOTE | 2020-02-05 03:28 | USCV_ITS ---
Samm Dong Age: 79 Gender: M : 1940 Exam Date: 02/05/2020 06:29 Ordering Phys: Evin Samuels MD Technologist: Nuris Miranda [place] [facility] [place]ication: AFIB BP: 133 / 83 HR: 79 Rhythm: Atrial fibrillation Technical Quality: Adequate MEASUREMENTS (Male / Female) Normal Values 2D ECHO LV Diastolic Diameter PLAX 4.5 cm 4.2 - 5.9 / 3.9 - 5.3 cm LV Systolic Diameter PLAX 4.1 cm LV Chamber Size 3.4 cm IVS Diastolic Thickness 1.7 cm 0.6 - 1.0 / 0.6 - 0.9 cm IVS Systolic Thickness 1.7 cm LVPW Diastolic Thickness 1.2 cm 0.6 - 1.0 / 0.6 - 0.9 cm LVPW Systolic Thickness 1.7 cm RV Chamber Size 4.0 cm LVOT Diameter 2.0 cm LV Ejection Fraction 2D Teich 20.4 % LV Ejection Fraction MOD 2C 24.6 % LV Ejection Fraction 2C AL 29.0 % LA Diameter 5.7 cm LA Width 4.1 cm LA Height 5.3 cm RA Width 4.3 cm RA Height 6.1 cm Aorta at Sinotubular Diameter 3.3 cm M-MODE LV Diastolic Diameter MM 4.7 cm 4.2 - 5.9 / 3.9 - 5.3 cm LV Systolic Diameter MM 3.6 cm LV Ejection Fraction MM Teich 46.6 % IVS Diastolic Thickness MM 1.1 cm 0.6 - 1.0 / 0.6 - 0.9 cm IVS Systolic Thickness MM 1.5 cm LVPW Diastolic Thickness MM 1.9 cm 0.6 - 1.0 / 0.6 - 0.9 cm LVPW Systolic Thickness MM 2.4 cm RV Diastolic Diameter MM 2.3 cm Aortic Annulus Diameter 3.7 cm LA Ao Ratio MM 1.5 MV E Point Septal Separation 1.6 cm DOPPLER AV Peak Velocity 157.0 cm/s LVOT Peak Velocity 63.0 cm/s AV Area Cont Eq vti 1.1 cm squared AV Area Cont Eq pk 1.3 cm squared MV Area PHT 4.9 cm squared MV E' Velocity 9.0 cm/s Mitral E to MV E' Ratio 10.8 Mitral E to LV E' Lateral Ratio 10.8 Mitral E to LV E' Septal Ratio 10.9 TR Peak Velocity 150.5 cm/s TR Peak Gradient 9.1 mmHg TR Mean Velocity 106.7 cm/s TR Mean Gradient 4.9 mmHg TR Velocity Time Integral 42.7 cm TV Peak E Velocity 70.0 cm/s Right Atrial Pressure 15.0 mmHg Pulmonary Artery Systolic Pressu 24.1 mmHg PV Peak Velocity 28.0 cm/s RV Acceleration Time 0.1 s RV Ejection Time 0.3 s RV AcT/ET 0.3 FINDINGS Left Ventricle Mildly increased left ventricular cavity size. Normal left ventricular wall thickness. Severely decreased left ventricular systolic function. Global left ventricular hypokinesis. Left ventricular ejection fraction is estimated at 25-30 %. Rhythm precludes evaluation of diastolic function. Right Ventricle Mildly increased right ventricular size. Normal right ventricular systolic function. Normal right ventricular systolic pressure. Right Atrium Moderately increased right atrial size. Left Atrium Moderately increased left atrial size. Mitral Valve Structurally normal mitral valve. Mild mitral valve regurgitation. Aortic Valve Structurally normal trileaflet aortic valve. Severe aortic valve calcification. Mild aortic valve stenosis, mean gradient 5.3 mmHg, RAQUEL 1.1 cm squared. This may be low output, low gradient . Mild aortic valve regurgitation. Tricuspid Valve Structurally normal tricuspid valve. Moderate tricuspid valve regurgitation. Pulmonic Valve Pulmonic valve not well visualized. Pericardium Normal pericardium without effusion. Aorta Normal ascending aorta dimension. CONCLUSIONS Mildly increased left ventricular cavity size. Normal left ventricular wall thickness. Severely decreased left ventricular systolic function. Global left ventricular hypokinesis. Left ventricular ejection fraction is estimated at 25-30 %. Rhythm precludes evaluation of diastolic function. Moderately increased right atrial size. Moderately increased left atrial size. Structurally normal mitral valve. Mild mitral valve regurgitation. Structurally normal trileaflet aortic valve. Severe aortic valve calcification. Mild aortic valve stenosis, mean gradient 5.3 mmHg, RAQUEL 1.1 cm squared. This may be low output, low gradient . Mild aortic valve regurgitation. There are no prior echocardiogram studies to compare. Dr. Eduardo Lake MD (Electronically Signed) Final Date: 05 February 2020 08:41 S
[2020-02-05 03:52] LABS: Thyroid Stimulating Hormone 2.88 uIU/mL (0.27-4.20)
--- NOTE | 2020-02-05 03:59 | USCV_ITS ---
Samm Dong Age: 79 Gender: M : 1940 Exam Date: 02/05/2020 07:02 Ordering Phys: Evin Samuels MD Technologist: Efren Rocha Exam Location: [facility] [place] Indication: UNABLE TO DOPPLER RIGHT LEFT Brachial 90.00 mmHg Brachial 89.00 mmHg Pressure (mmHg) Waveform Pressure (mmHg) Waveform 54.00 OPERATOR 90.00 34.00 DPA 57.00 0.60 Ankle/Brachial Index 1.00 40.00 Pre-Exercise Toe Pressure 54.00 0.44 Pre-Exercise Toe/Brachial Index 0.60 FINDINGS Abnormal resting CJ and TBI on the right side Normal resting CJ on the left side with diminished resting TBI CONCLUSIONS 1. Features of moderately severe peripheral artery disease on the right side. 2. Features of mild peripheral artery disease on the left side Dr Laverne Tabares MD [facility] (Electronically Signed) Final Date: 05 February 2020 16:55 S
[2020-02-05] MEDS: heparin 5,000 unit/mL INJ 1 mL 5000 UNIT SUBCUT ×3 (04:19→19:26)
[2020-02-05] MEDS: aspirin 325 mg Tablet PO (04:19)
[2020-02-05] MEDS: doxycycline 100 MG in sodium chloride 0.9% (plus) 100 ML IV ×2 (05:10→15:20)
[2020-02-05] MEDS: metoprolol tartrate 25 mg Tablet PO ×2 (05:10→15:20)
[2020-02-05 06:09] LABS: Alanine Aminotransferase 32 U/L (0-41); Albumin Level 3.1 g/dL (3.5-5.2); Alkaline Phosphatase 194 IU/L (40-130); Anion Gap 16.3 (5-19); Aspartate Amino Transferase 39 U/L (0-40); Blood Urea Nitrogen 33 mg/dL (8-23); Calcium 9.3 mg/dL (8.5-10.5); Carbon Dioxide 26 mmol/L (22-29); Chloride 102 mmol/L (98-107); Globulin 3.8 g/dL (1.3-4.6); Glucose 115 mg/dL (65-115); Magnesium 2.3 mg/dL (1.7-2.3); Osmolality Calculated 288 mOsm/kg (285-295); Potassium 4.3 mmol/L (3.5-5.1); Sodium 140 mmol/L (136-145); Total Bilirubin 1.1 mg/dL (0.15-1.2); Total Protein 6.9 g/dL (6.6-8.7)
[2020-02-05 06:10] LABS: Troponin 5 6HR 66.74 ng/L (0-15)
--- NOTE | 2020-02-05 06:33 | PC.NURSE ---
PT IS RESTING IN BED. PT DENIES PAIN AT THIS TIME. WILL GIVE REPORT TO ON COMING NURSE. PT V/S WNL.
--- NOTE | 2020-02-05 07:36 | PC.NURSE ---
INITIAL ROUNDING/BEDSIDE REPORT Pt is awake,calm, only oriented to name, . Pt noted to get SOB, Spo2- 84%, lips start to get cyanotic, then spo2 starts to back up to 97% on 4 L/min NC. Cardizem drip running at 5, Aflutter, afib w/HR in 70s to 80s. Pt denies any pain or discomfort. Wound ulcers noted on left lower extremity. skin is warm to this areas. 2-3 + pitting edema on LE and Bilateral feet. cool right foot. able to doppled PT on RLE and LLE. bed alarm reset. will keep monitoring. BP-96/56.
--- NOTE | 2020-02-05 08:13 | PC.CHAP ---
Pastoral Care Encounter/Spiritual Assessment Type of Contact [] Declined grinder outside diameter visit [] Patient/Family/Request visit [] Outpatient visit [] Follow-up visit [] Physician referral [] Code/Alert [x] Routine visit [] Staff referral [] Actively dying [x] Patient sleeping [] Family support [] [] Out of room [] Palliative care [] [] Receiving care in room [] Pre-surgical visit [] Trauma [] Long length of stay [] ICU visit [] Other: Relational/Emotional Strength [] Patient feels connected with others/family/visitors/staff [] Distress [] Loneliness/isolation [] Abandonment Spirituality of Patient [] Person of [place] [] Attends Roman Catholic of their [place] [] Believes in Prayer [] Reads Bible or Jehovah'S Witness materials [] There are Spiritual issues to be addressed Calender Inspector Interventions [x] Prayer [] Active listening [] Non-anxious presence [] Spiritual/emotional support [] Crisis/trauma care [] Spiritual counseling [] Bereavement support [] Provided bereavement packet [] Provided Bible/devotional materials [] Provided toy/stuffed animal, coloring book to patient or family member [] Provided Communion [] Anointing/[place] [] Salvation [x] Completed spiritual assessment [] Other: Impact on Illness or Injury [] Angry [] Fearful [] Anxious [] Often cries [] Exhaustion [] Unable to work [] Unable to attend latter-day [] Unable to walk/stand [] Unable to read [] Unable to drive [] Unable to eat/drink [] Unable to sleep [] Unable to be with family [] Patient intubated [] Other: Summary left daily bread in room Time spent with patient
--- NOTE | 2020-02-05 09:07 | P.PN_ITS ---
Subjective Subjective: Interval history: Chart reviewed, had 900 mL additional urine output, hemodynamically stable, rate controlled, afebrile, currently on nasal cannula. Labs noted. Echo report reviewed with noted EF of 20 to 30%. Resting in bed, no apparent distress, currently on Cardizem at 5 mg/hr. able to wean this off by mid to late afternoon, noted coughing spells with water so will request ST evaluation. Rhythm remains atrial fibrillation though after weaning off Cardizem remains rate controlled. Reportedly takes quite a few herbal medications which has brought. Very limited historian. Medications: Reviewed: Yes Medication Review Details: Active Medications Generic Name Dose Route Start Last Admin Trade Name Freq PRN Reason Stop Dose Admin Acetaminophen 650 mg 02/05/20 03:39 Tylenol PO Q6H PRN Mild/Mod Pain Or Temp >/= 101 Aspirin 325 mg 02/05/20 03:30 02/05/20 04:19 Aspirin PO 325 mg DAILY HIRAM Administration Collagenase 1 applic 02/05/20 09:00 Santyl TOPICAL DAILY HIRAM Furosemide 60 mg 02/05/20 11:00 Lasix IVP Q12H HIRAM Heparin Sodium (Be ef Lung) 5,000 unit 02/05/20 03:45 02/05/20 04:19 Heparin SUBCUT 5,000 unit Q8H HIRAM Administration Diltiazem HCl 125 mg/ Sodium 125 mls @ 10 mls/ hr 02/05/20 02:00 02/05/20 06:12 Chloride IV 5 mg/hr .[id number] HIRAM 5 mls/hr Infusion 10 MG/HR Doxycycline Hyclat e 100 mg/ 100 mls @ 100 mls /hr 02/05/20 03:30 02/05/20 06:12 Sodium Chloride IV Infused Q12H HIRAM Infusion Protocol Metoprolol Tartrat e 25 mg 02/05/20 04:00 02/05/20 05:10 Lopressor PO 25 mg Q12H HIRAM Administration Penicillins Allergy (Unknown, Verified 01/09/20 15:28) Unknown vancomycin Allergy (Unknown, Verified 01/09/20 15:29) Unknown Vitals/I&O/Wt Last Vital Signs Temp 98.8 F 02/05/20 07:40 Pulse 79 02/05/20 07:40 Resp 26 H 02/05/20 07:40 BP 104/58 02/05/20 07:47 Pulse Ox 96 02/05/20 07:40 02/04/20 02/05/20 02/05/20 22:59 06:59 14:59 Intake Total 153.583 / 153.583 Output Total 900 / 900 Balance 153.583 / 153.583 -900 / -900 Weight last 48 hrs Weight 82.599 kg Weight 78.018 kg Physical Exam Const: COMMON NORMALS: no acute distress and alert GENERAL APPEARANCE: cooperative, comfortable, frail appearing and appears older than stated age ORIENTATION/CONSCIOUSNESS: Yes awake and Yes oriented to person HENMT: COMMON NORMALS: normocephalic, atraumatic, hearing grossly normal bilaterally and moist oral mucous membranes HEAD & SCALP: normocephalic and atraumatic Eye: COMMON NORMALS: Equal, round and reactive pupils present, EOMs intact bilaterally and conjunctivae normal CONJUNCTIVA: Yes conjunctivae normal PUPIL: Yes Equal, round and reactive pupils present Neck/C-Spine: COMMON NORMALS: full ROM GENERAL: Yes normal visual inspection and Yes trachea midline Resp: COMMON NORMALS: normal respiratory effort, No retractions and No use of accessory muscles EFFORT & INSPECTION: No able to speak in complete sentences, Yes symmetric chest movement and Yes tachypneic AUSCULTATION: crackles and diminished lung sounds OTHER: -dyspneic, mouth breather Cardio: COMMON NORMALS: regular rate, S1 normal heart sound present, S2 normal heart sound present and No murmurs present (Cardio) RATE: regular rate RHYTHM: abnormal rhythm irregularly irregular HEART SOUNDS: S1 normal heart sound present and S2 normal heart sound present GI: COMMON NORMALS: Normal to inspection, nondistended, normoactive bowel sounds present, Soft to palpation and non-tender INSPECTION: Yes central obesity PALPATION: Yes Soft to palpation Extremity: COMMON NORMALS: normal to inspection and full ROM; negative for no pedal edema GENERAL: Yes edema Neuro: COMMON NORMALS: moves all extremities, no focal motor deficits and no sensory deficits noted SENSORIUM/ORIENTATION: Yes alert and Yes oriented to person Psych: COMMON NORMALS: mental status grossly normal, Normal thought process present, cooperative, normal affect and speech normal SPEECH: Yes normal speech THOUGHT PROCESS: Normal thought process present Skin: COMMON NORMALS: no jaundice, no petechiae and no mottling NARRATIVE SKIN EXAM: -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, shallow ulcers scattered on anterior L leg with some areas of superficial slough but no active drainage, no odor noted, tenderness to palpation Data : 02/04/20 23:25 02/05/20 04:59 Micro: Microbiology 02/05/20 07:47 Gram Stain - Final Leg - Drainage A&P Assessment and plan (1) CHF (congestive heart failure): -Noted dyspnea with exertion, progressively worsening shortness of breath, lower extremity edema, weight gain secondary to acute systolic CHF exacerbation as evidenced clinically and with noted BNP elevation greater than 14,000, right pleural effusion, minimal left pleural effusion, pulmonary vascular congestion -Minimal ascites on abdominal ultrasound -IV diuresis with lasix -daily weights, monitor Is & Os -VSS; continue to monitor -Echo: EF=25-30%, global LV hypokinesis, severely decreased LV systolic function, moderate biatrial enlargement, mild MR, mild , mild AR, moderate TR Status: Chronic Qualifiers: Heart failure chronicity: acute on chronic Heart failure type: systolic Qualified Code(s): I50.23 - Acute on chronic systolic (congestive) heart failure (2) Anasarca: -as noted above -venous duplex negative for DVT in bilateral LEs Status: Acute (3) Pleural effusion: -as noted above Status: Acute (4) Acute respiratory failure with hypoxia: -initially required BiPAP, weaned to NC -continue to monitor respiratory status -secondary to acute systolic CHF exacerbation as noted above Status: Acute (5) Troponin level elevated: -troponins noted with significant delta -likely secondary to demand ischemia from acute CHF exacerbation -noted atrial flutter on ECGs -telemetry monitoring -JAVIER -on BB -continue to monitor vital signs Status: Acute (6) Acute kidney injury: -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 -baseline Cr around 1.2 -continue to monitor renal function with diuresis -imaging showing slight nephrolithiasis, mild bilateral hydronephrosis, 3 right renal masses, bilateral renal cysts Status: Acute (7) Renal mass: -Will require follow-up imaging for noted right renal masses as noted above Status: Acute (8) Hyperkalemia: -Potassium normalized, likely secondary to supplementation the patient was taking at home -Replace as needed particularly with aggressive IV diuresis Status: Resolved (9) Atrial flutter: -Appears to be new onset atrial flutter, confirmed on EKG -Telemetry monitoring -Echo as noted above -We will need long-term anticoagulation, [id number] score-4 Status: Acute Qualifiers: Atrial flutter type: typical Qualified Code(s): I48.3 - Typical atrial flutter (10) Adult hypothyroidism: -TSH wnl -resume thyroid replacement Status: Chronic (11) HTN (hypertension): -VSS; continue to monitor Status: Chronic Qualifiers: Hypertension type: essential hypertension Qualified Code(s): I10 - Essential (primary) hypertension (12) Chronic wound of extremity: -seems to have developed s/p ORIF for fracture and subsequent osteomyelitis -wound care as needed (Santyl, absorbent dressing) -due to some noted drainage, wound culture and gram stain ordered; on empiric doxycyline -bilateral arterial doppler: normal resting CJ on L, abnormal resting CJ on R consistent with moderately severe PAD, mild PAD on L Status: Chronic Additional A&P Information -Chronic macrocytic anemia; baseline Hg is about 11; current Hg wnl, continue to monitor -noted D-dimer elevation; no PE per CTA, negative venous duplex -Leukocytosis, continue to monitor WBC, on doxycycline -Coagulopathy; noted ALP elevation with otherwise normal LFTs though initially abnormal which could be due to hepatic congestion, has not been on AC -Short term memory impairment; potentially due to dementia -Obesity: BMI-31 kg/m2 -currently NPO; ST evaluation due to choking episodes with water; start on mechanical soft diet for now -DVT ppx with heparin -Dispo: home -Code status: FULL code Attestations Medical Necessity Statement*: Patient requires hospitalization for continued aggressive IV diuresis secondary to acute CHF exacerbation, continued monitoring of hemodynamic and respiratory status. Time Spent in Patient Care: Greater than 35 minutes (>than 50% of time spent in counselling and/or direct pt care on unit) . Coding Level of Care Code Acute Printed Circuit Boards Beveler for g Fwd Exam Comprehensive Diagnoses CHF (congestive heart failure) I50.23 Heart failure chronicity: acute on chronic Heart failure type: systolic Anasarca R60.1 Pleural effusion J90 Acute respiratory failure with hypoxia J96.01 Troponin level elevated R79.89 Acute kidney injury N17.9 Renal mass N28.89 Hyperkalemia E87.5 Atrial flutter I48.3 Atrial flutter type: typical Adult hypothyroidism E03.9 HTN (hypertension) I10 Hypertension type: essential hypertension Chronic wound of extremity
--- NOTE | 2020-02-05 11:30 | PC.NURSE ---
Wound care dressing change Cleanse with saline irrigation. Applied Santyl gel and covered wth Sivercel non-adherent Alginate dressing, then wrap with Kerlix. Pls see wound assessment.
[2020-02-05] MEDS: FUROsemide 10 mg/mL SDV 10mL 60 MG IVP ×2 (11:34→23:18)
[2020-02-05] MEDS: collagenase oint 30 gm 1 APPLIC TOPICAL (11:44)
--- NOTE | 2020-02-05 11:45 | PC.NURSE ---
medication Dr. Castro notified on his HR- in the 70s to 80s. was on cardizem drip at 5 mcg/min. received telephone order to stop Cardizem drip.
--- NOTE | 2020-02-05 14:58 | PC.NURSE ---
Addendum entered by Mey Isaac RN 02/05/20 15:06: Doctor informed regarding pt's home herbal supplements he takes according to . Original Note: Talk to for pt's home med reconciliation review Zule[place] pt's mentioned plenty of herbal medicines that patient takes. 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 As much as I can understand per pt takes, 1. Adilene herb for bladder health 2. oregano oil for anti-viral/anti-fungal 3. ALLIBIOTIC WITH GARLIC, OREGANO, OLIVE LEAF, ELDERBERRY IN IT 4. WILD LETTUCE HERB.PLEASE SEE MED REC.
--- NOTE | 2020-02-05 17:10 | PC.NURSE ---
wesley in room
--- NOTE | 2020-02-05 18:36 | PC.PHAR ---
Pt started to choke/aspirate when he drinks water Pt HOB was elevated. And just finished eating his dinner 100% with his at bedside. Pt requested water and noted pt is started to cough and choke the water. he started to cough hard and his face turned pinkish purple. He is started to have inspiratory and expiratory wheezing. SpO2 is 88-91% on 2 L. Instructed pt to keep coughing hard. He did teach back shortly. Discuss this condition and treatment plans to MD via telephone and received telephone orders to start pt on Duoneb q6h PRN, Speech Therapy for Evaluation and Aspiration Precaution. Keep monitoring pt. Read back orders.
--- NOTE | 2020-02-05 18:43 | PC.NURSE ---
Notified RT for Breathing treatment
[2020-02-05] MEDS: ipratropium-albuterol 3 mL Neb INHALATION (20:04)
--- NOTE | 2020-02-05 21:54 | PC.NURSE ---
PT RESTING IN BED AT BEGINNING OF SHIFT. PT DENIED PAIN. BED ALARM WAS RESET. PT TRIED TO GET UP WITHOUT ASSISTANCE. THIS NURSE AND GAS TURBINE MECHANIC WENT TO ROOM TO ASSIST PT. PT TRANSFERRED WELL TO BS. PT IS MORE CONFUSED AT THIS TIME. WAS NOTIFIED OF HR 126. PT MOVED TO 111-2 D/T TRYING TO GET OUT OF BED. WILL CONTINUE TO MONITOR.
[2020-02-06] VITALS (8 sets, daily range): BP systolic 97–142; BP diastolic 53–88; PULSE 95–126; RESP 16–30; TEMP 36.4–37; O2SAT 90–97
[2020-02-06] MEDS: doxycycline 100 MG in sodium chloride 0.9% (plus) 100 ML IV ×2 (03:12→14:56)
[2020-02-06] MEDS: heparin 5,000 unit/mL INJ 1 mL 5000 UNIT SUBCUT ×3 (03:12→19:17)
[2020-02-06] MEDS: metoprolol tartrate 25 mg Tablet PO ×2 (03:20→16:13)
[2020-02-06] MEDS: sodium chloride 0.9% (100 ml) 100 ML 10 ML (03:25)
--- NOTE | 2020-02-06 03:47 | PC.NURSE ---
PT IS COMBATIVE. PT IS TRYING TO PUNCH LAB TECHS. PT WAS REDIRECTED. WILL CONTINUE TO MONITOR.
[2020-02-06 04:10] LABS: Basophils # 0.1 10^3/uL (0.0-0.1); Basophils % 0.5 %; Eosinophils # 0.1 10^3/uL (0.0-0.8); Eosinophils % 0.5 %; Hematocrit 42.6 % (42.0-52.0); Hemoglobin 13.1 g/dL (11.7-16.6); Lymphocytes # 0.9 10^3/uL (0.8-4.8); Lymphocytes % 6.6 %; Mean Corpuscular HGB Conc 30.8 g/dL (30.0-36.0); Mean Corpuscular Hemoglobin 32.5 pg (28.0-34.0); Mean Corpuscular Volume 105.7 fL (80-94); Monocytes # 1.4 10^3/uL (0.2-0.9); Monocytes % 10.4 %; Neutrophils # 10.65 10^3/uL (1.8-7.7); Neutrophils % 81.2 %; Nucleated Red Blood Cells % 0 %; Platelet Count 197 10^3/cmm (130-400); Red Blood Count 4.03 10^6/uL (4.1-5.3); Red Cell Distribution Width 17.8 % (12.1-15.1); White Blood Count 13.1 10^3/uL (4.0-10.0)
[2020-02-06 04:27] LABS: INR 1.37 (0.8-1.2)
[2020-02-06 04:44] LABS: Alanine Aminotransferase 34 U/L (0-41); Albumin Level 2.8 g/dL (3.5-5.2); Alkaline Phosphatase 168 IU/L (40-130); Anion Gap 17.8 (5-19); Aspartate Amino Transferase 43 U/L (0-40); Blood Urea Nitrogen 35 mg/dL (8-23); Calcium 8.6 mg/dL (8.5-10.5); Carbon Dioxide 26 mmol/L (22-29); Chloride 102 mmol/L (98-107); Globulin 3.7 g/dL (1.3-4.6); Glucose 118 mg/dL (65-115); Osmolality Calculated 292 mOsm/kg (285-295); Potassium 3.8 mmol/L (3.5-5.1); Sodium 142 mmol/L (136-145); Total Bilirubin 0.9 mg/dL (0.15-1.2); Total Protein 6.5 g/dL (6.6-8.7)
--- NOTE | 2020-02-06 06:13 | PC.NURSE ---
PT IS RESTING IN BED. PT HAD TO CONSTANTLY BE REDIRECTED TO LEAVE O2 ON, PULSE OX, TELE, AND TO LEAVE CATHETER AND IV ALONE. PT DID HAVE SPELLS OF COMBATIVENESS. PT LOOKS CYNOTIC O2 SAT ABOVE 95%. VS WNL. WILL GIVE REPORT TO ON COMING NURSE.
--- NOTE | 2020-02-06 07:00 | PC.NURSE ---
Pt pulled his IV's, tried to pull his blunt catheter, tele patches and won't keep his oxygen in his nose Per Night bedside report, pt was moved closer to the nurses station due to pt's increase agitation, attempting to get out of bed, HR has been sustaining in 123s afib since [address] on the pt's 2 IV's were out, patient is restless and confused but easily redirected. Order received for 1:1 sitter. PROCESS EXPERT and I help pt with bedbath, New IV inserted on right FA #[id number]. 1 attempt. Tolerated procedure well. Repositioned pt on right side lying. Called house sup for 1:1 sitter order. Bed alarm reset.
[2020-02-06] MEDS: collagenase oint 30 gm 1 APPLIC TOPICAL (08:41)
--- NOTE | 2020-02-06 09:27 | P.PN_ITS ---
Subjective Subjective: Interval history: Had 2000 mL urine output overnight, normotensive, tachycardic in the 120s, on 4 L nasal cannula. Pulled out IV access and unable to maintain supplemental oxygen so sitter requested and moved closer to nursing station. Resting quietly in bed, pending ST evaluation. Medications: Reviewed: Yes Medication Review Details: Active Medications Generic Name Dose Route Start Last Admin Trade Name Freq PRN Reason Stop Dose Admin Acetaminophen 650 mg 02/05/20 03:39 Tylenol PO Q6H PRN Mild/Mod Pain Or Temp >/= 101 Albuterol/Ipratrop ium 3 ml 02/05/20 18:28 02/05/20 20:04 Duoneb INHALATION 3 ml Q6H.RESPIRATORY P RN Administration SHORTNESS OF ELIZABETH TH Aspirin 325 mg 02/05/20 03:30 02/05/20 04:19 Aspirin PO 325 mg DAILY HIRAM Administration Collagenase 1 applic 02/05/20 09:00 02/06/20 08:41 Santyl TOPICAL 1 applic DAILY HIRAM Administration Furosemide 60 mg 02/05/20 11:00 02/05/20 23:18 Lasix IVP 60 mg Q12H HIRAM Administration Heparin Sodium (Be ef Lung) 5,000 unit 02/05/20 03:45 02/06/20 03:12 Heparin SUBCUT 5,000 unit Q8H HIRAM Administration Doxycycline Hyclat e 100 mg/ 100 mls @ 100 mls /hr 02/05/20 03:30 02/06/20 03:12 Sodium Chloride IV 100 mls/hr Q12H HIRAM Administration Protocol Metoprolol Tartrat e 25 mg 02/05/20 04:00 02/06/20 03:20 Lopressor PO 25 mg Q12H HIRAM Administration Penicillins Allergy (Unknown, Verified 01/09/20 15:28) Unknown vancomycin Allergy (Unknown, Verified 01/09/20 15:29) Unknown Vitals/I&O/Wt Last Vital Signs Temp 97.5 F L 02/06/20 07:04 Pulse 123 H 02/06/20 07:04 Resp 18 02/06/20 07:04 BP 142/88 02/06/20 07:04 Pulse Ox 97 02/06/20 07:04 02/05/20 02/06/20 02/06/20 22:59 06:59 14:59 Intake Total 322 / 585.667 Output Total 1550 / 2450 1650 / 4100 750 / 750 Balance -1228 / -1864.333 -1650 / -3514.333 -750 / -750 Weight last 48 hrs Weight 80.014 kg Weight 82.599 kg Weight 78.018 kg Physical Exam Const: COMMON NORMALS: no acute distress GENERAL APPEARANCE: comfortable, frail appearing and appears older than stated age OTHER: -resting quietly in bed HENMT: COMMON NORMALS: normocephalic, atraumatic, hearing grossly normal bilaterally and moist oral mucous membranes HEAD & SCALP: normocephalic and atraumatic Eye: COMMON NORMALS: Equal, round and reactive pupils present, EOMs intact bilaterally and conjunctivae normal CONJUNCTIVA: Yes conjunctivae normal PUPIL: Yes Equal, round and reactive pupils present Neck/C-Spine: COMMON NORMALS: full ROM GENERAL: Yes normal visual inspection and Yes trachea midline Resp: COMMON NORMALS: normal respiratory effort, No retractions and No use of accessory muscles EFFORT & INSPECTION: No able to speak in complete sentences, Yes symmetric chest movement and Yes tachypneic AUSCULTATION: crackles and diminished lung sounds OTHER: -dyspneic, mouth breather -on 3 L NC Cardio: COMMON NORMALS: S1 normal heart sound present, S2 normal heart sound present and No murmurs present (Cardio) RATE: tachycardic RHYTHM: abnormal rhythm irregularly irregular HEART SOUNDS: S1 normal heart sound present and S2 normal heart sound present GI: COMMON NORMALS: Normal to inspection, nondistended, normoactive bowel sounds present, Soft to palpation and non-tender INSPECTION: Yes central obesity PALPATION: Yes Soft to palpation : BLADDER/KIDNEY EXAM: Yes catheter in place Catheter type (Male): urethral Extremity: COMMON NORMALS: normal to inspection and full ROM; negative for no pedal edema GENERAL: Yes edema Neuro: COMMON NORMALS: moves all extremities, no focal motor deficits and no sensory deficits noted Psych: COMMON NORMALS: mental status grossly normal, Normal thought process present, cooperative, normal affect and speech normal SPEECH: Yes normal speech THOUGHT PROCESS: Normal thought process present Skin: COMMON NORMALS: no jaundice, no petechiae and no mottling NARRATIVE SKIN EXAM: -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, shallow ulcers scattered on anterior L leg with some areas of superficial slough but no active drainage, no odor noted, tenderness to palpation Data : 02/06/20 03:00 02/06/20 03:00 Micro: Microbiology 02/05/20 07:47 Gram Stain - Final Leg - Drainage A&P Assessment and plan (1) CHF (congestive heart failure): -Noted dyspnea with exertion, progressively worsening shortness of breath, lower extremity edema, weight gain secondary to acute systolic CHF exacerbation as evidenced clinically and with noted BNP elevation greater than 14,000, right pleural effusion, minimal left pleural effusion, pulmonary vascular congestion -Minimal ascites on abdominal ultrasound -IV diuresis with lasix; so far has had a negative fluid balance of 4.1 L -daily weights, monitor Is & Os -VSS; continue to monitor -Echo: EF=25-30%, global LV hypokinesis, severely decreased LV systolic function, moderate biatrial enlargement, mild MR, mild , mild AR, moderate TR Status: Chronic Qualifiers: Heart failure chronicity: acute on chronic Heart failure type: systolic Qualified Code(s): I50.23 - Acute on chronic systolic (congestive) heart failure (2) Anasarca: -as noted above -venous duplex negative for DVT in bilateral LEs Status: Acute (3) Pleural effusion: -as noted above Status: Acute (4) Acute respiratory failure with hypoxia: -initially required BiPAP, weaned to NC -continue to monitor respiratory status -secondary to acute systolic CHF exacerbation as noted above Status: Acute (5) Troponin level elevated: -troponins noted with significant delta -likely secondary to demand ischemia from acute CHF exacerbation -noted atrial flutter on ECGs -telemetry monitoring -JAVIER -on BB -continue to monitor vital signs -Echo noted above Status: Acute (6) Acute kidney injury: -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 -baseline Cr around 1.2 -continue to monitor renal function with diuresis -imaging showing slight nephrolithiasis, mild bilateral hydronephrosis, 3 right renal masses, bilateral renal cysts Status: Acute (7) Renal mass: -Will require follow-up imaging for noted right renal masses as noted above Status: Acute (8) Hyperkalemia: -Potassium normalized, likely secondary to supplementation the patient was taking at home -Replace as needed particularly with aggressive IV diuresis Status: Resolved (9) Atrial flutter: -Appears to be new onset atrial flutter, confirmed on EKG -Telemetry monitoring -Echo as noted above -We will need long-term anticoagulation, [id number] score-4 Status: Acute Qualifiers: Atrial flutter type: typical Qualified Code(s): I48.3 - Typical atrial flutter (10) Adult hypothyroidism: -TSH wnl -resume thyroid replacement Status: Chronic (11) HTN (hypertension): -VSS; continue to monitor Status: Chronic Qualifiers: Hypertension type: essential hypertension Qualified Code(s): I10 - Essential (primary) hypertension (12) Chronic wound of extremity: -seems to have developed s/p ORIF for fracture and subsequent osteomyelitis -wound care as needed (Santyl, absorbent dressing) -due to some noted drainage, wound culture and gram stain ordered; on empiric doxycyline -bilateral arterial doppler: normal resting JC on L, abnormal resting CJ on R consistent with moderately severe PAD, mild PAD on L Status: Chronic Additional A&P Information -Chronic macrocytic anemia; baseline Hg is about 11; current Hg wnl, continue to monitor -noted D-dimer elevation; no PE per CTA, negative venous duplex -Leukocytosis, continue to monitor WBC, on doxycycline -Coagulopathy; noted ALP elevation with otherwise normal LFTs though initially abnormal which could be due to hepatic congestion, has not been on AC -Short term memory impairment; potentially due to dementia; requiring 1:1 sitter -Obesity: BMI-30 kg/m2 -ST evaluation due to choking episodes with water; start on mechanical soft diet for now -DVT ppx with heparin -Dispo: working on SNF placement, [facility] is [facility] choice -Code status: FULL code Attestations Medical Necessity Statement*: Patient requires hospitalization for continued IV diuresis secondary to acute CHF exacerbation. Time Spent in Patient Care: 16 - 35 minutes (>than 50% of time spent in counselling and/or direct pt care on unit) . Coding Level of Care Code Acute Pest Control Service Sales Agent for [facility] Fwd Exam Comprehensive Diagnoses CHF (congestive heart failure) I50.23 Heart failure chronicity: acute on chronic Heart failure type: systolic Anasarca R60.1 Pleural effusion J90 Acute respiratory failure with hypoxia J96.01 Troponin level elevated R79.89 Acute kidney injury N17.9 Renal mass N28.89 Hyperkalemia E87.5 Atrial flutter I48.3 Atrial flutter type: typical Adult hypothyroidism E03.9 HTN (hypertension) I10 Hypertension type: essential hypertension Chronic wound of extremity
--- NOTE | 2020-02-06 10:15 | PC.NURSE ---
Sitter at bedside RN from OB for sitting 1:1. Using paper charting for q15 mins.
[2020-02-06] MEDS: FUROsemide 10 mg/mL SDV 10mL 60 MG IVP ×2 (10:23→23:45)
--- NOTE | 2020-02-06 10:40 | PC.NURSE ---
Physician Rounding at bedside, Informed her that patient has been sleeping and resting since this morning. Sitter is at bedside. Ask her regarding oral medicines for this morning. Doctor wants me to hold meds orally and let patient rest and sleep and await for speech therapy evaluation. Aspirin PO held.
--- NOTE | 2020-02-06 10:44 | PC.NURSE ---
Dr. Lora at bedside assessing patient, waiting for speech consult to evaluate swallowing abilities. Reviewed labs and Vital Signs continue with current orders at this time.
--- NOTE | 2020-02-06 11:13 | PC.CHAP ---
Pastoral Care Encounter/Spiritual Assessment Type of Contact [] Declined treating engineer visit [] Patient/Family/Request visit [] Outpatient visit [] Follow-up visit [] Physician referral [] Code/Alert [] Routine visit [] Staff referral [] Actively dying [] Patient sleeping [] Family support [] [] Out of room [] Palliative care [] [] Receiving care in room [] Pre-surgical visit [] Trauma [] Long length of stay [] ICU visit [x] Other: not able to communicate Relational/Emotional Strength [] Patient feels connected with others/family/visitors/staff [] Distress [] Loneliness/isolation [] Abandonment Spirituality of Patient [] Person of [place] [] Attends Shinto of their [place] [] Believes in Prayer [] Reads Bible or Zoroastrian materials [] There are Spiritual issues to be addressed Freezer Unloader Interventions [] Prayer [] Active listening [] Non-anxious presence [] Spiritual/emotional support [] Crisis/trauma care [] Spiritual counseling [] Bereavement support [] Provided bereavement packet [] Provided Bible/devotional materials [] Provided toy/stuffed animal, coloring book to patient or family member [] Provided Communion [] Anointing/[place] [] Salvation [] Completed spiritual assessment [] Other: Impact on Illness or Injury [] Angry [] Fearful [] Anxious [] Often cries [] Exhaustion [] Unable to work [] Unable to attend evangelical [] Unable to walk/stand [] Unable to read [] Unable to drive [] Unable to eat/drink [] Unable to sleep [] Unable to be with family [x] Patient intubated [] Other: Summary not able to communicate Time spent with patient 5 mins
--- NOTE | 2020-02-06 23:32 | PC.NURSE ---
REPORT RECEIVED FROM OFF GOING NURSE. PT IS RESTING IN BED AT THIS TIME. WILL CONTINUE TO MONITOR.
[2020-02-07] VITALS (9 sets, daily range): BP systolic 115–137; BP diastolic 75–90; PULSE 102–115; RESP 16–24; TEMP 36.6–37.1; O2SAT 85–99
[2020-02-07] MEDS: doxycycline 100 MG in sodium chloride 0.9% (plus) 100 ML IV ×2 (04:20→16:25)
[2020-02-07] MEDS: heparin 5,000 unit/mL INJ 1 mL 5000 UNIT SUBCUT ×3 (04:20→19:24)
[2020-02-07] MEDS: metoprolol tartrate 25 mg Tablet PO (04:21)
[2020-02-07 04:51] LABS: Basophils % 0.3 %; Eosinophils # 0.1 10^3/uL (0.0-0.8); Eosinophils % 1.1 %; Hematocrit 43.3 % (42.0-52.0); Mean Corpuscular Hemoglobin 31.3 pg (28.0-34.0); Mean Corpuscular Volume 104.3 fL (80-94); Mean Platelet Volume 9.6 fL (7.4-10.4); Monocytes # 1.1 10^3/uL (0.2-0.9); Monocytes % 10.8 %; Neutrophils # 7.62 10^3/uL (1.8-7.7); Neutrophils % 77.3 %; Nucleated Red Blood Cells % 0 %; Platelet Count 197 10^3/cmm (130-400); Red Blood Count 4.15 10^6/uL (4.1-5.3); Red Cell Distribution Width 17.9 % (12.1-15.1); White Blood Count 9.9 10^3/uL (4.0-10.0)
[2020-02-07 05:17] LABS: Alanine Aminotransferase 29 U/L (0-41); Albumin Level 2.9 g/dL (3.5-5.2); Alkaline Phosphatase 177 IU/L (40-130); Anion Gap 13.3 (5-19); Aspartate Amino Transferase 32 U/L (0-40); Blood Urea Nitrogen 30 mg/dL (8-23); Calcium 9.2 mg/dL (8.5-10.5); Carbon Dioxide 33 mmol/L (22-29); Chloride 102 mmol/L (98-107); Globulin 3.4 g/dL (1.3-4.6); Glucose 98 mg/dL (65-115); Osmolality Calculated 297 mOsm/kg (285-295); Potassium 3.3 mmol/L (3.5-5.1); Sodium 145 mmol/L (136-145); Total Bilirubin 0.8 mg/dL (0.15-1.2); Total Protein 6.3 g/dL (6.6-8.7)
--- NOTE | 2020-02-07 07:23 | PC.NURSE ---
PT WAS MORE ALERT AND ORIENTATED THIS AM. PT WANTED SOME PUDDING AND ATE WITHOUT DIFFICULTY. PT STATED THAT THEY RESTED WELL. PT DENIES PAIN AT THIS TIME. WILL CONTINUE TO MONITOR. WILL GIVE REPORT TO ON COMING NURSE.
[2020-02-07] MEDS: aspirin 325 mg Tablet PO (09:44)
[2020-02-07] MEDS: collagenase oint 30 gm 1 APPLIC TOPICAL (09:47)
--- NOTE | 2020-02-07 10:53 | P.PN_ITS ---
Subjective Subjective: Interval history: Intermittently tachycardic, normotensive, afebrile, currently on room air, heart 2325 mL urine output overnight for total net fluid balance of 7.3 L. We will switch to oral Lasix. Replace potassium. Improved renal function, resolved leukocytosis. Resting quietly currently, sitter discontinued overnight. Medications: Reviewed: Yes Medication Review Details: Active Medications Generic Name Dose Route Start Last Admin Trade Name Freq PRN Reason Stop Dose Admin Acetaminophen 650 mg 02/05/20 03:39 Tylenol PO Q6H PRN Mild/Mod Pain Or Temp >/= 101 Albuterol/Ipratrop ium 3 ml 02/05/20 18:28 02/05/20 20:04 Duoneb INHALATION 3 ml Q6H.RESPIRATORY P RN Administration SHORTNESS OF ELIZABETH TH Aspirin 325 mg 02/05/20 03:30 02/07/20 09:44 Aspirin PO 325 mg DAILY HIRAM Administration Collagenase 1 applic 02/05/20 09:00 02/07/20 09:47 Santyl TOPICAL 1 applic DAILY HIRAM Administration Furosemide 60 mg 02/05/20 11:00 02/06/20 23:45 Lasix IVP 60 mg Q12H HIRAM Administration Heparin Sodium (Be ef Lung) 5,000 unit 02/05/20 03:45 02/07/20 04:20 Heparin SUBCUT 5,000 unit Q8H HIRAM Administration Doxycycline Hyclat e 100 mg/ 100 mls @ 100 mls /hr 02/05/20 03:30 02/07/20 04:20 Sodium Chloride IV 100 mls/hr Q12H HIRAM Administration Protocol Metoprolol Tartrat e 25 mg 02/05/20 04:00 02/07/20 04:21 Lopressor PO 25 mg Q12H HIRAM Administration Penicillins Allergy (Unknown, Verified 01/09/20 15:28) Unknown vancomycin Allergy (Unknown, Verified 01/09/20 15:29) Unknown Vitals/I&O/Wt Last Vital Signs Temp 98.7 F 02/07/20 07:24 Pulse 108 H 02/07/20 07:26 Resp 20 H 02/07/20 07:26 BP 115/90 02/07/20 07:24 Pulse Ox 88 L 02/07/20 07:26 02/06/20 02/07/20 02/07/20 22:59 06:59 14:59 Intake Total 340 / 340 360 / 360 Output Total 225 / 2875 2100 / 4975 Balance 115 / -2535 -2100 / -4635 360 / 360 Weight last 48 hrs Weight 77.882 kg Weight 80.014 kg Physical Exam Const: COMMON NORMALS: no acute distress GENERAL APPEARANCE: comfortable, frail appearing and appears older than stated age ORIENTATION/CONSCIOUSNESS: Yes awake and Yes oriented to person OTHER: -resting quietly in bed HENMT: COMMON NORMALS: normocephalic, atraumatic, hearing grossly normal bilaterally and moist oral mucous membranes HEAD & SCALP: normocephalic and atraumatic Eye: COMMON NORMALS: Equal, round and reactive pupils present, EOMs intact bilaterally and conjunctivae normal CONJUNCTIVA: Yes conjunctivae normal PUPIL: Yes Equal, round and reactive pupils present Neck/C-Spine: COMMON NORMALS: full ROM GENERAL: Yes normal visual inspection and Yes trachea midline Resp: COMMON NORMALS: normal respiratory effort, No retractions and No use of accessory muscles EFFORT & INSPECTION: No able to speak in complete sentences, Yes symmetric chest movement and Yes tachypneic AUSCULTATION: crackles and diminished lung sounds OTHER: -dyspneic, mouth breather -on 3 L NC Cardio: COMMON NORMALS: S1 normal heart sound present, S2 normal heart sound present and No murmurs present (Cardio) RATE: tachycardic RHYTHM: abnormal rhythm irregularly irregular HEART SOUNDS: S1 normal heart sound present and S2 normal heart sound present GI: COMMON NORMALS: Normal to inspection, nondistended, normoactive bowel sounds present, Soft to palpation and non-tender INSPECTION: Yes central obesity PALPATION: Yes Soft to palpation : BLADDER/KIDNEY EXAM: Yes catheter in place Extremity: COMMON NORMALS: normal to inspection and full ROM; negative for no pedal edema GENERAL: Yes edema Neuro: COMMON NORMALS: moves all extremities, no focal motor deficits and no sensory deficits noted SENSORIUM/ORIENTATION: Yes oriented to person Psych: COMMON NORMALS: mental status grossly normal, Normal thought process present, cooperative, normal affect and speech normal SPEECH: Yes normal speech THOUGHT PROCESS: Normal thought process present Skin: COMMON NORMALS: no jaundice, no petechiae and no mottling NARRATIVE SKIN EXAM: -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, shallow ulcers scattered on anterior L leg with some areas of superficial slough but no active drainage, no odor noted, tenderness to palpation Data : 02/07/20 04:32 02/07/20 04:32 Micro: Microbiology 02/05/20 07:47 Gram Stain - Final Leg - Drainage Wound Culture - Preliminary Gram Negative Rods A&P Assessment and plan (1) CHF (congestive heart failure): -Noted dyspnea with exertion, progressively worsening shortness of breath, lower extremity edema, weight gain secondary to acute systolic CHF exacerbation as evidenced clinically and with noted BNP elevation greater than 14,000, right pleural effusion, minimal left pleural effusion, pulmonary vascular congestion -Minimal ascites on abdominal ultrasound -IV diuresis with lasix; so far has had a negative fluid balance of 7.3 L. Clinically compensated so we will switch to oral Lasix -daily weights, monitor Is & Os -VSS; continue to monitor -Echo: EF=25-30%, global LV hypokinesis, severely decreased LV systolic function, moderate biatrial enlargement, mild MR, mild , mild AR, moderate TR Status: Chronic Qualifiers: Heart failure chronicity: acute on chronic Heart failure type: systolic Qualified Code(s): I50.23 - Acute on chronic systolic (congestive) heart failure (2) Anasarca: -as noted above -venous duplex negative for DVT in bilateral LEs Status: Acute (3) Pleural effusion: -as noted above Status: Acute (4) Acute respiratory failure with hypoxia: -initially required BiPAP, weaned to NC -continue to monitor respiratory status -secondary to acute systolic CHF exacerbation as noted above Status: Acute (5) Troponin level elevated: -troponins noted with significant delta -likely secondary to demand ischemia from acute CHF exacerbation -noted atrial flutter on ECGs -telemetry monitoring -JAVIER -on BB; increased dose for more optimal heart rate control -continue to monitor vital signs -Echo noted above Status: Acute (6) Acute kidney injury: -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 -baseline Cr around 1.2 -continue to monitor renal function with diuresis -imaging showing slight nephrolithiasis, mild bilateral hydronephrosis, 3 right renal masses, bilateral renal cysts Status: Acute (7) Renal mass: -Will require follow-up imaging for noted right renal masses as noted above Status: Acute (8) Hyperkalemia: -Potassium normalized, likely secondary to supplementation the patient was taking at home -Replace as needed particularly with aggressive diuresis Status: Resolved (9) Atrial flutter: -Appears to be new onset atrial flutter, confirmed on EKG -Telemetry monitoring -Echo as noted above -We will need long-term anticoagulation, [id number] score-4 Status: Acute Qualifiers: Atrial flutter type: typical Qualified Code(s): I48.3 - Typical atrial flutter (10) Adult hypothyroidism: -TSH wnl -on herbal thyroid replacement Status: Chronic (11) HTN (hypertension): -VSS; continue to monitor Status: Chronic Qualifiers: Hypertension type: essential hypertension Qualified Code(s): I10 - Essential (primary) hypertension (12) Chronic wound of extremity: -seems to have developed s/p ORIF for fracture and subsequent osteomyelitis -wound care as needed (Santyl, absorbent dressing) -due to some noted drainage, wound culture and gram stain ordered; on empiric doxycyline -bilateral arterial doppler: normal resting CJ on L, abnormal resting CJ on R consistent with moderately severe PAD, mild PAD on L Status: Chronic Additional A&P Information -Chronic macrocytic anemia; baseline Hg is about 11; current Hg wnl, continue to monitor -noted D-dimer elevation; no PE per CTA, negative venous duplex -Leukocytosis, continue to monitor WBC, on doxycycline -Coagulopathy; noted ALP elevation with otherwise normal LFTs though initially abnormal which could be due to hepatic congestion, has not been on AC -Short term memory impairment; potentially due to dementia; requiring 1:1 sitter -Obesity: BMI-30 kg/m2 -ST evaluation appreciated, continue mechanical soft diet with nectar thick liquids, aspiration precautions -DVT ppx with heparin -Dispo: Accepted to [facility] -Code status: FULL code Attestations Medical Necessity Statement*: Patient requires hospitalization for continued diuresis, switched to oral Lasix today. Time Spent in Patient Care: 16 - 35 minutes (>than 50% of time spent in counselling and/or direct pt care on unit) . Coding Level of Care Code Acute Swift Tender for [facility] Fwd Exam Comprehensive Diagnoses CHF (congestive heart failure) I50.23 Heart failure chronicity: acute on chronic Heart failure type: systolic Anasarca R60.1 Pleural effusion J90 Acute respiratory failure with hypoxia J96.01 Troponin level elevated R79.89 Acute kidney injury N17.9 Renal mass N28.89 Hyperkalemia E87.5 Atrial flutter I48.3 Atrial flutter type: typical Adult hypothyroidism E03.9 HTN (hypertension) I10 Hypertension type: essential hypertension Chronic wound of extremity
--- NOTE | 2020-02-07 11:55 | PC.NURSE ---
Physician at bedside. Patient currently resting with eyes closed, even non-labored breathing. Physician gives verbal order to wait until patient is awake to administer medications. Also, notify physician once patient is awake so physician can adequately assess patient.
[2020-02-07] MEDS: potassium chloride ER 10 mEq Tablet 40 MEQ PO (12:40)
[2020-02-07] MEDS: metoprolol tartrate 25 mg Tablet 37.5 MG PO ×2 (12:44→23:10)
[2020-02-07] MEDS: FUROsemide 40 mg Tablet PO (12:44)
--- NOTE | 2020-02-07 16:29 | PC.NURSE ---
Visitor at bedside.
--- NOTE | 2020-02-07 16:38 | PC.NURSE ---
Dr vasquez notified of positive wound cultures no new instructions given at this time
--- NOTE | 2020-02-07 19:59 | PC.NURSE ---
Patient does not have any complaints at this time. Patient is oriented to person only. Patient is calm and able to follow commands. Bed alarm is set. Will monitor.
--- NOTE | 2020-02-07 20:55 | PC.NURSE ---
I am able to dopple pedal pulses in both lower extremities. Patient continually pulls oxygen out of nose after education. Will place continuous pulse ox probe on patient to monitor saturation closer and round on patient frequently.
[2020-02-08] VITALS (9 sets, daily range): BP systolic 116–137; BP diastolic 81–94; PULSE 93–124; RESP 14–25; TEMP 36.4–36.8; O2SAT 91–98
[2020-02-08] MEDS: heparin 5,000 unit/mL INJ 1 mL 5000 UNIT SUBCUT ×3 (02:50→21:05)
[2020-02-08] MEDS: doxycycline 100 MG in sodium chloride 0.9% (plus) 100 ML IV (02:50)
[2020-02-08 03:50] LABS: Basophils # 0.1 10^3/uL (0.0-0.1); Basophils % 0.6 %; Eosinophils # 0.2 10^3/uL (0.0-0.8); Eosinophils % 2.3 %; Hematocrit 44.2 % (42.0-52.0); Hemoglobin 13.3 g/dL (11.7-16.6); Lymphocytes # 1.1 10^3/uL (0.8-4.8); Lymphocytes % 12.7 %; Mean Corpuscular HGB Conc 30.1 g/dL (30.0-36.0); Mean Corpuscular Hemoglobin 31.5 pg (28.0-34.0); Mean Corpuscular Volume 104.7 fL (80-94); Mean Platelet Volume 9.9 fL (7.4-10.4); Monocytes # 0.8 10^3/uL (0.2-0.9); Monocytes % 9.4 %; Neutrophils % 74.4 %; Nucleated Red Blood Cells % 0 %; Platelet Count 229 10^3/cmm (130-400); Red Blood Count 4.22 10^6/uL (4.1-5.3); Red Cell Distribution Width 17.7 % (12.1-15.1); White Blood Count 8.9 10^3/uL (4.0-10.0)
[2020-02-08 04:19] LABS: Anion Gap 12.6 (5-19); Blood Urea Nitrogen 26 mg/dL (8-23); Calcium 8.2 mg/dL (8.5-10.5); Carbon Dioxide 29 mmol/L (22-29); Chloride 102 mmol/L (98-107); Glucose 149 mg/dL (65-115); Osmolality Calculated 290 mOsm/kg (285-295); Potassium 3.6 mmol/L (3.5-5.1); Sodium 140 mmol/L (136-145)
[2020-02-08] MEDS: aspirin 325 mg Tablet PO (08:05)
[2020-02-08] MEDS: potassium chloride ER 10 mEq Tablet 40 MEQ PO (08:05)
[2020-02-08] MEDS: FUROsemide 40 mg Tablet PO (08:05)
[2020-02-08] MEDS: collagenase oint 30 gm 1 APPLIC TOPICAL (08:41)
[2020-02-08] MEDS: metoprolol tartrate 50 mg Tablet PO ×2 (09:58→21:05)
--- NOTE | 2020-02-08 10:01 | PC.NURSE ---
Dr Lora at bedside assessing patient at this time. Patient more alert, and denies any pain at this time.
--- NOTE | 2020-02-08 10:08 | PC.SOCIAL ---
Pg 2 IMM Explained to pt Pg 2 IMM. Pt verbally understands. No questions voiced. Provided pt a copy. Signed, dated, & timed a copy & placed in pt's chart.
--- NOTE | 2020-02-08 10:39 | P.PN_ITS ---
Subjective Subjective: Interval history: Resting quietly in bed, awake, alert to self, asking to see his . On 3 L nasal cannula, noted to be tachycardic in the 1 10-1 20 range. Increased dose of beta-quoc given this morning. Will discontinue Steen catheter. Medications: Reviewed: Yes Medication Review Details: Active Medications Generic Name Dose Route Start Last Admin Trade Name Freq PRN Reason Stop Dose Admin Acetaminophen 650 mg 02/05/20 03:39 Tylenol PO Q6H PRN Mild/Mod Pain Or Temp >/= 101 Albuterol/Ipratrop ium 3 ml 02/05/20 18:28 02/05/20 20:04 Duoneb INHALATION 3 ml Q6H.RESPIRATORY P RN Administration SHORTNESS OF ELIZABETH TH Aspirin 325 mg 02/05/20 03:30 02/08/20 08:05 Aspirin PO 325 mg DAILY HIRAM Administration Collagenase 1 applic 02/05/20 09:00 02/08/20 08:41 Santyl TOPICAL 1 applic DAILY HIRAM Administration Furosemide 40 mg 02/07/20 11:15 02/08/20 08:05 Lasix PO 40 mg DAILY HIRAM Administration Heparin Sodium (Be ef Lung) 5,000 unit 02/05/20 03:45 02/08/20 02:50 Heparin SUBCUT 5,000 unit Q8H HIRAM Administration Doxycycline Hyclat e 100 mg/ 100 mls @ 100 mls /hr 02/05/20 03:30 02/08/20 02:50 Sodium Chloride IV 100 mls/hr Q12H HIRAM Administration Protocol Metoprolol Tartrat e 50 mg 02/08/20 10:00 02/08/20 09:58 Lopressor PO 50 mg Q12H HIRAM Administration Potassium Chloride 40 meq 02/07/20 11:15 02/08/20 08:05 Klor-Con 10 PO 40 meq DAILY HIRAM Administration Penicillins Allergy (Unknown, Verified 01/09/20 15:28) Unknown vancomycin Allergy (Unknown, Verified 01/09/20 15:29) Unknown Vitals/I&O/Wt Last Vital Signs Temp 97.6 F 02/08/20 07:03 Pulse 110 H 02/08/20 10:22 Resp 25 H 02/08/20 10:22 BP 137/82 02/08/20 10:22 Pulse Ox 93 02/08/20 10:22 02/07/20 02/08/20 02/08/20 22:59 06:59 14:59 Intake Total 340 / 820 0 / 820 Output Total 800 / 800 450 / 1250 420 / 420 Balance -460 / 20 -450 / -430 -420 / -420 Weight last 48 hrs Weight 81.012 kg Weight 77.882 kg Physical Exam Const: COMMON NORMALS: no acute distress GENERAL APPEARANCE: comfortable, frail appearing and appears older than stated age ORIENTATION/CONSCIOUSNESS: Yes awake and Yes oriented to person OTHER: -resting quietly in bed HENMT: COMMON NORMALS: normocephalic, atraumatic, hearing grossly normal bilaterally and moist oral mucous membranes HEAD & SCALP: normocephalic and atraumatic Eye: COMMON NORMALS: Equal, round and reactive pupils present, EOMs intact bilaterally and conjunctivae normal CONJUNCTIVA: Yes conjunctivae normal PUPIL: Yes Equal, round and reactive pupils present Neck/C-Spine: COMMON NORMALS: full ROM GENERAL: Yes normal visual inspection and Yes trachea midline Resp: COMMON NORMALS: normal respiratory effort, No retractions and No use of accessory muscles EFFORT & INSPECTION: No able to speak in complete sentences, Yes symmetric chest movement and Yes tachypneic AUSCULTATION: crackles and diminished lung sounds OTHER: -mouth breather -on 3 L NC Cardio: COMMON NORMALS: S1 normal heart sound present, S2 normal heart sound present and No murmurs present (Cardio) RATE: tachycardic RHYTHM: abnormal rhythm irregularly irregular HEART SOUNDS: S1 normal heart sound present and S2 normal heart sound present GI: COMMON NORMALS: Normal to inspection, nondistended, normoactive bowel sounds present, Soft to palpation and non-tender INSPECTION: Yes central obesity PALPATION: Yes Soft to palpation : BLADDER/KIDNEY EXAM: Yes catheter in place Extremity: COMMON NORMALS: normal to inspection and full ROM; negative for no pedal edema GENERAL: Yes edema (Primarily of the left lower extremity around the ankles) Neuro: COMMON NORMALS: moves all extremities, no focal motor deficits and no sensory deficits noted SENSORIUM/ORIENTATION: Yes oriented to person Psych: COMMON NORMALS: mental status grossly normal, Normal thought process present, cooperative, normal affect and speech normal SPEECH: Yes normal speech THOUGHT PROCESS: Normal thought process present Skin: COMMON NORMALS: no jaundice, no petechiae and no mottling NARRATIVE SKIN EXAM: -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, shallow ulcers scattered on anterior L leg with some areas of superficial slough but no active drainage, no odor noted, tenderness to palpation Data : 02/08/20 03:05 02/08/20 03:05 Micro: Microbiology 02/05/20 07:47 Gram Stain - Final Leg - Drainage Wound Culture - Preliminary Gram Negative Rods Staphylococcus aureus A&P Assessment and plan (1) Atrial flutter: -Appears to be new onset atrial flutter, confirmed on EKG -Telemetry monitoring -Echo as noted below -We will need long-term anticoagulation, [id number] score-4; will discuss this further with krystian Dewey -remains in RVR, will increase BB dose and add low dose cardizem Status: Acute Qualifiers: Atrial flutter type: typical Qualified Code(s): I48.3 - Typical atrial flutter (2) CHF (congestive heart failure): -Noted dyspnea with exertion, progressively worsening shortness of breath, lower extremity edema, weight gain secondary to acute systolic CHF exacerbation as evidenced clinically and with noted BNP elevation greater than 14,000, right pleural effusion, minimal left pleural effusion, pulmonary vascular congestion -Minimal ascites on abdominal ultrasound -IV diuresis with lasix; so far has had a negative fluid balance of 7.3 L. Clinically compensated so on oral Lasix -daily weights, monitor Is & Os -VSS; continue to monitor -Echo: EF=25-30%, global LV hypokinesis, severely decreased LV systolic function, moderate biatrial enlargement, mild MR, mild , mild AR, moderate TR Status: Chronic Qualifiers: Heart failure chronicity: acute on chronic Heart failure type: systolic Qualified Code(s): I50.23 - Acute on chronic systolic (congestive) heart failure (3) Anasarca: -as noted above -venous duplex negative for DVT in bilateral LEs Status: Acute (4) Pleural effusion: -as noted above Status: Acute (5) Acute respiratory failure with hypoxia: -initially required BiPAP, weaned to NC -continue to monitor respiratory status -secondary to acute systolic CHF exacerbation as noted above Status: Acute (6) Troponin level elevated: -troponins noted with significant delta -likely secondary to demand ischemia from acute CHF exacerbation -noted atrial flutter on ECGs -telemetry monitoring -JAVIER -on BB; increased dose for more optimal heart rate control -continue to monitor vital signs -Echo noted above Status: Acute (7) Acute kidney injury: -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 -baseline Cr around 1.2 -continue to monitor renal function with diuresis -imaging showing slight nephrolithiasis, mild bilateral hydronephrosis, 3 right renal masses, bilateral renal cysts Status: Acute (8) Renal mass: -Will require follow-up imaging for noted right renal masses as noted above Status: Acute (9) Hyperkalemia: -Potassium normalized, likely secondary to supplementation the patient was taking at home -Replace as needed particularly with aggressive diuresis Status: Resolved (10) Adult hypothyroidism: -TSH wnl -on herbal thyroid replacement Status: Chronic (11) HTN (hypertension): -VSS; continue to monitor Status: Chronic Qualifiers: Hypertension type: essential hypertension Qualified Code(s): I10 - Essential (primary) hypertension (12) Chronic wound of extremity: -seems to have developed s/p ORIF for fracture and subsequent osteomyelitis -wound care as needed (Santyl, absorbent dressing) -due to some noted drainage, wound culture and gram stain ordered; on empiric doxycyline -bilateral arterial doppler: normal resting CJ on L, abnormal resting CJ on R consistent with moderately severe PAD, mild PAD on L Status: Chronic Additional A&P Information -Chronic macrocytic anemia; baseline Hg is about 11; current Hg wnl, continue to monitor -noted D-dimer elevation; no PE per CTA, negative venous duplex -Leukocytosis, continue to monitor WBC, on doxycycline -Coagulopathy; noted ALP elevation with otherwise normal LFTs though initially abnormal which could be due to hepatic congestion, has not been on AC -Short term memory impairment; potentially due to dementia; off 1:1 sitter x > 24 hrs -Obesity: BMI-31 kg/m2 -ST evaluation appreciated, continue mechanical soft diet with nectar thick liquids, aspiration precautions -DVT ppx with heparin -Dispo: Accepted to [facility] -Code status: FULL code Attestations Medical Necessity Statement*: Patient requires hospitalization for continued management of A. fib with RVR requiring titration of his medications. Time Spent in Patient Care: 16 - 35 minutes (>than 50% of time spent in counselling and/or direct pt care on unit) . Coding Level of Care Code Acute [employer] Operator for [facility] Fwd Diagnoses Atrial flutter I48.3 Atrial flutter type: typical CHF (congestive heart failure) I50.23 Heart failure chronicity: acute on chronic Heart failure type: systolic Anasarca R60.1 Pleural effusion J90 Acute respiratory failure with hypoxia J96.01 Troponin level elevated R79.89 Acute kidney injury N17.9 Renal mass N28.89 Hyperkalemia E87.5 Adult hypothyroidism E03.9 HTN (hypertension) I10 Hypertension type: essential hypertension Chronic wound of extremity
[2020-02-08] MEDS: dilTIAZem 30 mg Tablet PO ×3 (11:05→23:51)
[2020-02-08] MEDS: doxycycline 100 mg Tablet PO (14:48)
--- NOTE | 2020-02-08 16:07 | PC.NURSE ---
Catheter removed per orders at 1139. Catheter tip intact and 10 mL of fluid removed from bulb. Patient tolerated well.
--- NOTE | 2020-02-08 21:15 | PC.NURSE ---
Pt assisted to bedside commode per pt request. Used walker and x1 assist. Denies complaints of pain. Alert to self only at this time. Pt very drowsy. Assisted back to bed and resting. Placed back on 3 L NC. LLE wound present. Dressing maintained at this time, unable to assess wound- clean, dry, and intact. Coccyx noted to be red. Turned to left side. Denies any further needs.
[2020-02-09] MEDS: heparin 5,000 unit/mL INJ 1 mL 5000 UNIT SUBCUT ×2 (03:59→11:01)
[2020-02-09] MEDS: dilTIAZem 30 mg Tablet PO ×2 (03:59→10:58)
[2020-02-09 04:00] VITALS: BP 122/81; PULSE 94; RESP 12; O2SAT 97
[2020-02-09] MEDS: doxycycline 100 mg Tablet PO (04:00)
--- NOTE | 2020-02-09 04:15 | PC.NURSE ---
SHIFT NOTE: Pt remained in bed throughout most of the shift with x3 times up to BSC. Remains confused at times. No complaints of pain. LLE wound dressing in place. HR 90s, aflutter. Noted to have increase in weight and decrease amount of urine. Bladder scan completed with only 106ml present. Will pass along in report this AM. Pt calm and easily directed. 3L NC on throughout majority of shift. Remains on PO atb for LLE infection. No signs or symptoms of distress or any acute issues.
[2020-02-09 04:46] VITALS: TEMP 36.4
[2020-02-09 07:24] VITALS: BP 130/76; PULSE 91; RESP 16; TEMP 36.4; O2SAT 98
[2020-02-09 07:43] VITALS: PULSE 91; RESP 16; O2SAT 98
[2020-02-09] MEDS: FUROsemide 40 mg Tablet PO (09:12)
[2020-02-09] MEDS: aspirin 325 mg Tablet PO (09:13)
[2020-02-09] MEDS: potassium chloride ER 10 mEq Tablet 40 MEQ PO (09:14)
[2020-02-09] MEDS: metoprolol tartrate 50 mg Tablet PO (09:18)
[2020-02-09] MEDS: collagenase oint 30 gm 1 APPLIC TOPICAL (09:19)
--- NOTE | 2020-02-09 10:54 | P.DS_ITS ---
Discharge Providers Date of Admission: 02/05/20 01:57 Date of Discharge: February 09, 2020 Attending Provider at Admission: Evin Samuels Attending Provider at Discharge: Geno Castro MD Diagnoses at Discharge Discharge Diagnosis (1) Atrial flutter: Status: Acute Problem details: -Appears to be new onset atrial flutter, confirmed on EKG -Telemetry monitoring -Echo as noted below -We will need long-term anticoagulation, [id number] score-4; will discuss this further with krystian Dewey -remains in RVR, will increase BB dose and add low dose cardizem Qualifiers: Atrial flutter type: typical Qualified Code(s): I48.3 - Typical atrial flutter (2) CHF (congestive heart failure): Status: Chronic Problem details: -Noted dyspnea with exertion, progressively worsening shortness of breath, lower extremity edema, weight gain secondary to acute systolic CHF exacerbation as evidenced clinically and with noted BNP elevation greater than 14,000, right pleural effusion, minimal left pleural effusion, pulmonary vascular congestion -Minimal ascites on abdominal ultrasound -IV diuresis with lasix; so far has had a negative fluid balance of 7.3 L. Clinically compensated so on oral Lasix -daily weights, monitor Is & Os -VSS; continue to monitor -Echo: EF=25-30%, global LV hypokinesis, severely decreased LV systolic function, moderate biatrial enlargement, mild MR, mild , mild AR, moderate TR Qualifiers: Heart failure chronicity: acute on chronic Heart failure type: systolic Qualified Code(s): I50.23 - Acute on chronic systolic (congestive) heart failure (3) Anasarca: Status: Resolved Problem details: -as noted above -venous duplex negative for DVT in bilateral LEs (4) Pleural effusion: Status: Acute (5) Acute respiratory failure with hypoxia: Status: Acute Problem details: -initially required BiPAP, weaned to NC -continue to monitor respiratory status -secondary to acute systolic CHF exacerbation as noted above (6) Troponin level elevated: Status: Acute Problem details: -troponins noted with significant delta -likely secondary to demand ischemia from acute CHF exacerbation -noted atrial flutter on ECGs -telemetry monitoring -JAVIER -on BB; increased dose for more optimal heart rate control -continue to monitor vital signs -Echo noted above (7) Acute kidney injury: Status: Resolved Problem details: -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 -baseline Cr around 1.2 -continue to monitor renal function with diuresis -imaging showing slight nephrolithiasis, mild bilateral hydronephrosis, 3 right renal masses, bilateral renal cysts (8) Renal mass: Status: Acute Problem details: -Will require follow-up imaging for noted right renal masses as noted above (9) Hyperkalemia: Status: Resolved (10) Adult hypothyroidism: Status: Chronic Problem details: -TSH wnl -on herbal thyroid replacement (11) HTN (hypertension): Status: Chronic Problem details: -VSS; continue to monitor Qualifiers: Hypertension type: essential hypertension Qualified Code(s): I10 - Essential (primary) hypertension (12) Chronic wound of extremity: Status: Chronic Problem details: -seems to have developed s/p ORIF for fracture and subsequent osteomyelitis -wound care as needed (Santyl, absorbent dressing) -due to some noted drainage, wound culture and gram stain ordered; on empiric doxycyline -bilateral arterial doppler: normal resting CJ on L, abnormal resting CJ on R consistent with moderately severe PAD, mild PAD on L Other Information Additional DC diagnoses/information: -Chronic macrocytic anemia; baseline Hg is about 11; current Hg wnl, continue to monitor -noted D-dimer elevation; no PE per CTA, negative venous duplex -Leukocytosis, continue to monitor WBC, on doxycycline -Coagulopathy; noted ALP elevation with otherwise normal LFTs though initially abnormal which could be due to hepatic congestion, has not been on AC -Short term memory impairment; potentially due to dementia; off 1:1 sitter x > 24 hrs -Obesity: BMI-31 kg/m2 Reason for Visit Reason for Visit: sob Hospital Course Hospital Course: Patient was admitted to the stepdown unit and started on diuresis secondary to noted acute CHF exacerbation as evidenced by dyspnea, BNP elevation, evidence of fluid overload on imaging. He responded well to Lasix and once clinically compensated will switch to oral diuretics. Echo was done showing ejection fraction of 25 to 30% with global left ventricular hypokinesis. He was also found to have what appears to be new onset atrial flutter that has been managed with a beta-quoc and addition of Cardizem. Heart rates have been in the 90s which is appropriate given patient's advanced age. He has required some supplemental oxygen support which can be continued and titrated accordingly to maintain his saturation at or above 92% or for patient comfort. Patient and favor herbal treatments and other than aspirin which she is agreeable to she would like to try herbal supplementation for additional blood thinning purposes. Clearly explained risk of OH and stroke associated with arrhythmia as well as risk of bleeding associated with introduction of anticoagulation. He did have evidence of acute kidney injury which has improved and renal function is at his baseline. He did require Steen catheter for accurate ins and outs which has been discontinued and he has been able to void independently. I suspect that he has some BPH at baseline so we will add tamsulosin. He has chronic left lower extremity wounds that have been cleaned and dressed at least once daily. Serial studies were done showing evidence of peripheral arterial disease. He was noted to have an elevated d-dimer with no evidence of VTE based on negative CTA of the chest and a venous duplex. He appears to have at least a mild degree of dementia at baseline with noted waxing and waning in his mental status. He is dependent in all ADLs. He will require close monitoring as he is a high fall risk and may require feeding assistance with his meals. He was evaluated by speech therapy and recommendation made for mechanical soft diet with nectar thick liquids and continued aspiration precautions. He has been covered with empiric antibiotics secondary to his left lower extremity wounds. Wound culture has grown Klebsiella oxytoca and staph aureus. He has been switched to ciprofloxacin based on sensitivity profile to provide appropriate coverage. Discharge Summary: -Patient to follow-up with primary care provider per SNF or within 1 week Physical Exam Const: COMMON NORMALS: no acute distress GENERAL APPEARANCE: comfortable, frail appearing and appears older than stated age ORIENTATION/CONSCIOUSNESS: Yes awake and Yes oriented to person OTHER: -Ambulating with walker HENMT: COMMON NORMALS: normocephalic, atraumatic, hearing grossly normal bilaterally and moist oral mucous membranes HEAD & SCALP: normocephalic and atraumatic Eye: COMMON NORMALS: Equal, round and reactive pupils present, EOMs intact bilaterally and conjunctivae normal CONJUNCTIVA: Yes conjunctivae normal PUPIL: Yes Equal, round and reactive pupils present Neck/C-Spine: COMMON NORMALS: full ROM GENERAL: Yes normal visual inspection and Yes trachea midline Resp: COMMON NORMALS: normal respiratory effort, No retractions and No use of accessory muscles EFFORT & INSPECTION: No able to speak in complete s entences, Yes symmetric chest movement and Yes tachypneic AUSCULTATION: crackles and diminished lung sounds OTHER: -mouth breather -on 3 L NC Cardio: COMMON NORMALS: S1 normal heart sound present and S2 normal heart sound present RATE: tachycardic RHYTHM: abnormal rhythm irregularly irregular HEART SOUNDS: S1 normal heart sound present, S2 normal heart sound present and Murmur heart sound present systolic GI: COMMON NORMALS: Normal to inspection, nondistended, normoactive bowel soun ds present, Soft to palpation and non-tender INSPECTION: Yes central obesity PALPATION: Yes Soft to palpation Extremity: COMMON NORMALS: normal to inspection and full ROM; negative for no pedal edema GENERAL: Yes edema (Primarily of the left lower extremity around the ankles) Neuro: COMMON NORMALS: moves all extremities, no focal motor deficits and no sensory deficits noted SENSORIUM/ORIENTATION: Yes oriented to person and Yes other (Intermittent confusion but easily redirected) OTHER: -ambulatory with a walker for minimal distances Psych: COMMON NORMALS: mental status grossly normal, Normal thought process present, cooperative, normal affect and speech normal SPEECH: Yes normal speech THOUGHT PROCESS: Normal thought process present Skin: COMMON NORMALS: no jaundice, no petechiae and no mottling NARRATIVE SKIN EXAM: -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, shallow ulcers scattered on anterior L leg with some areas of superficial slough but no active drainage, no odor noted, tenderness to palpation Discharge Data Data Completed and Pending: Completed Studies During Hospitalization Category Date Time Status CT angio chest PE protcl [id number] Urge nt Cat Scan 02/05/20 00:19 Completed XR chest 1V marcelino ble [id number] Stat Exams 02/04/20 23:17 Completed CV ankle brachial index [id number] Routi ne Ultrasound 02/05/20 03:59 Completed CV echo complete* [id number] Routine Ultrasound 02/05/20 03:28 [place] [id number] Routin e Ultrasound 02/05/20 03:18 Completed US abdomen comple te* [id number] Routine Ultrasound 02/05/20 02:56 Completed Vitals: Last Vital Signs Temp 97.5 F L 02/09/20 07:24 Pulse 91 02/09/20 07:43 Resp 16 02/09/20 07:43 BP 130/76 02/09/20 07:24 Pulse Ox 98 02/09/20 07:43 Discharge Plan Discharge Patient Disposition: Xfer [facility] Condition: Stable Prescriptions: New furosemide 40 mg Tablet 40 mg PO DAILY Qty: 30 RF: 0 aspirin 325 mg Tablet 325 mg PO DAILY Qty: 30 RF: 0 ciprofloxacin HCl 500 mg Tablet 500 mg PO BID 10 Days Qty: 20 RF: 0 Santyl 250 unit/gram Ointment 1 applic topical DAILY Qty: 30 RF: 0 potassium chloride 10 mEq Tablet Extended Release 40 meq PO DAILY Qty: 30 RF: 0 metoprolol tartrate 50 mg Tablet 50 mg PO Q12H Qty: 30 RF: 0 diltiazem HCl 120 mg capsule,extended release 24 hr 120 mg PO DAILY Qty: 30 RF: 0 tamsulosin 0.4 mg capsule 0.4 mg PO DAILY Qty: 30 RF: 0 Continued Mcandrews Thyroid 60 mg tablet 60 mg PO DAILY Qty: 30 RF: 0 Discontinued Santyl 250 unit/gram ointment 1 applic TOPICAL DAILY PRN (Reason: wound care on legs) Qty: 30 RF: 0 Lasix 20 mg tablet 20 mg PO BID RF: 0 Discharge Orders: Discharge Order (Routine); Ordered 02/09/20 Ordered By: Geno Castro Referrals: Deyvi Woods, [facility] [Nurse Practitioner] - 4-7 days Discharge Diet: Cardiac Discharge Activity: Increase activity as tolerated, As per PT/OT instructions and Oxygen as instructed Activity Restrictions/Additional Instructions: -Patient has required supplemental oxygen support, currently set at 3 L but can be titrated as needed to maintain his saturation at or above 92% or for patient comfort -Patient has chronic left lower extremity wounds that will need to be cleaned and dressed daily. Use normal saline to clean the wound areas gently, pat dry with some gauze, apply Santyl and dressed with nonadherent dressing and wrap with Kerlix. Keep left lower extremity elevated as tolerated Discharge Attestations Time Spent in Discharge Care*: greater than 30 min Specific Discharge Activities: Specific discharge activities: educating patient, educating and/or supporting family/caregiver, discussing with lead case manager/social workers/dc planners, documenting/other paperwork and evaluating patient/reviewing data Status at Discharge: Cognitive status at discharge: mildly impaired cognition (At baseline) , Behavioral status at discharge: cooperative and dependent in ADL's , Functional status at discharge: uses cane/walker Overall status at discharge: patient is progressing back to baseline Quality Metrics Clinical Quality Measures During this hospital stay, did patient experience: None Coding Level of Care Code Acute Finish Production Manager for Chg Fwd Exam Comprehensive Diagnoses Atrial flutter I48.3 Atrial flutter type: typical CHF (congestive heart failure) I50.23 Heart failure chronicity: acute on chronic Heart failure type: systolic Anasarca R60.1 Pleural effusion J90 Acute respiratory failure with hypoxia J96.01 Troponin level elevated R79.89 Acute kidney injury N17.9 Renal mass N28.89 Hyperkalemia E87.5 Adult hypothyroidism E03.9 HTN (hypertension) I10 Hypertension type: essential hypertension Chronic wound of extremity
[2020-02-09] MEDS: ciprofloxacin 500 mg Tablet PO (10:58)
[2020-02-09 12:00] VITALS: BP 108/72; PULSE 90; RESP 22; TEMP 35.6; O2SAT 96
--- NOTE | 2020-02-09 13:58 | PC.NURSE ---
Report called to DANNY Arenas at [facility]. Nurse verbalized understanding of patient and did not have any further questions. Call back number provided if needed.
[2020-02-09 15:58] VITALS: BP 108/72; PULSE 90; RESP 22; TEMP 35.6; O2SAT 96
== END 2020-02-09 14:50 | disposition skilled nursing facility (03) | DRG 291 ==
LOC: ER 02-05 01:58 → CSU 02-05 02:05
PROVIDERS: Emergency Medicine; Admitting Provider Internal Medicine; Visit Provider Family Medicine
DX: I13.0 Hypertensive heart and chronic kidney disease with heart failure and stage 1 through stage 4 chronic kidney disease, or unspecified chronic kidney disease (principal); J96.01 Acute respiratory failure with hypoxia; I50.21 Acute systolic (congestive) heart failure; K83.1 Obstruction of bile duct; I48.3 Typical atrial flutter; D68.9 Coagulation defect, unspecified; N17.9 Acute kidney failure, unspecified; I24.8 Other forms of acute ischemic heart disease; N18.3 Chronic kidney disease, stage 3 (moderate); E03.9 Hypothyroidism, unspecified; E87.5 Hyperkalemia; E66.9 Obesity, unspecified; Z68.31 Body mass index [BMI] 31.0-31.9, adult
CPT/HCPCS: 12345; 36415; 36416; 36600; 51702; 70450; 71045; 71275; 74176; 76700; 80048; 80053; 81001; 81003; 82803; 82962; 83605; 83735; 83880; 84443; 84484; 85025; 85378; 85610; 85730; 87040; 87070; 87077; 87086; 87186; 87205; 92610; 93005; 93306; 93922; 93970; 94640; 94660; 96372; 96375; 97116; 97161; 97530; 99283; 99284; J0610; J1644; J1815; J1940; J1956; J2060; J2270; J3490; J7030; J7040; Q9967

== ENCOUNTER 2020-02-12 03:46 | Inpatient (IN) | payer MEDICARE, OTHER, SELFPAY ==
[2020-02-12] VITALS (26 sets, daily range): BP systolic 90–155; BP diastolic 50–96; PULSE 76–101; RESP 16–30; TEMP 36.4–37.1; O2SAT 91–99; BMI 23.1
--- NOTE | 2020-02-12 04:15 | XRR_ITS ---
PROCEDURE INFORMATION: Exam: XR Chest, 1 View Exam date and time: 02/12/2020 5:05 AM Age: 79 years old Clinical indication: Other: AMS; Prior surgery; Surgery type: Hernia; Additional info: AMS, hypotension TECHNIQUE: Imaging protocol: XR of the chest Views: Frontal portable semiupright view of the chest. COMPARISON: CR XR chest 1V portable [id number] 02/04/2020 11:21 PM FINDINGS: Lungs: Left lateral basilar infiltrate. Stable right basilar pulmonary subsegmental atelectasis. The pulmonary vasculature is less congested. Pleural space: Decreased, minimal right pleural effusion. No pneumothorax. Heart/Mediastinum: Stable mild cardiomegaly. Mediastinum: Stable. Vasculature: Moderate aortic arch atherosclerotic calcification without ectasia. Bones/joints: Stable. XR/XR chest 1V portable [id number] IMPRESSION: 1. Left lateral basilar infiltrate. Pneumonitis is difficult to exclude. Clinical correlation is recommended. 2. Stable right basilar pulmonary subsegmental atelectasis. 3. Improved pulmonary vascular congestion. 4. Decreased, minimal right pleural effusion.
--- NOTE | 2020-02-12 04:15 | CTR_ITS ---
PROCEDURE INFORMATION: Exam: CT Head Without Contrast Exam date and time: 02/12/2020 4:21 AM Age: 79 years old Clinical indication: Altered mental status/memory loss; Confusion or disorientation; Additional info: AMS TECHNIQUE: Imaging protocol: Computed tomography of the head without contrast. Radiation optimization: All CT scans at this facility use at least one of these dose optimization techniques: automated exposure control; mA and/or kV adjustment per patient size (includes targeted exams where dose is matched to clinical indication); or iterative reconstruction. COMPARISON: CT head wo con* [id number] 01/28/2017 4:08 PM RADIATION DOSE METRICS: Total DLP (mGy-cm): 1505 FINDINGS: Brain: There is moderate diffuse cerebral atrophy. Patchy areas of hypoattenuation are seen in the deep white matter of the cerebral hemispheres bilaterally compatible with deep white matter microvascular disease. Hypoattenuation seen within the right anterior limb of the internal capsule and frontal lobe white matter compatible with a chronic lacunar infarction. Ventricles: Normal. No ventriculomegaly. Bones/joints: Unremarkable. No acute fracture. Sinuses: Mucosal thickening and fluid is seen within the ethmoidal sinuses bilaterally. Mastoid air cells: Visualized mastoid air cells are well aerated. Soft tissues: Unremarkable. CT/CT head wo con* [id number] IMPRESSION: There are no acute intracranial findings. Stable head CT compared with 01/28/2017. Radiation Dose CTDIVOL = (mGy): DLP = 1505 (mGy-cm)
--- NOTE | 2020-02-12 04:16 | ECG_ITS ---
[facility] Test Date: 2020-02-12 Pat Name: Samm Dong Department: Room: Gender: Male Gastroenterology Nurse: : 1940 Requested By: Kee Olguin Order Number: [id number] Vides MD: Chelsey Gonzalez M.D. Measurements Intervals [place] Rate: 84 P: [place]: -1 QRS: 122 QRSD: 177 T: -26 QT: 487 QTc: 577 Interpretive Statements ATRIAL FIBRILLATION RIGHT BUNDLE BRANCH BLOCK LEFT POSTERIOR FASCICULAR BLOCK ST DEPRESSION, CONSIDER SUBENDOCARDIAL INJURY Compared to ECG 02/05/2020 03:18:56 Right bundle-branch block now present Left posterior fascicular block now present ST (T wave) deviation now present Atrial flutter no longer present T-wave abnormality no longer present Electronically Signed On 02-12-2020 21:27:25 CDT by Chelsey Gonzalez M.D. [id number]
[2020-02-12 04:37] LABS: ABG PCO2 22.4 mmHg (35-45); ABG PH Result 7.29 (7.35-7.45); Arterial Blood Gas Hematocrit 45.6 % (42-52); Base Excess ABG -13.4 mmol/L (-2.0-2.0); Blood Gas Allen Test Pos; Blood Gas Sample Site Radial, left; Blood Gas Sample Type Arterial; HCO3 ABG 10.9 mmol/L (22-26); Oxygen Device NC; PO2 ABG 99.7 mmHg (80.0-100.0)
[2020-02-12 04:43] LABS: Basophils # 0.1 10^3/uL (0.0-0.1); Basophils % 0.6 %; Hematocrit 51.5 % (42.0-52.0); Hemoglobin 14.8 g/dL (11.7-16.6); Lymphocytes # 0.7 10^3/uL (0.8-4.8); Lymphocytes % 3.1 %; Mean Corpuscular HGB Conc 28.7 g/dL (30.0-36.0); Mean Corpuscular Volume 111.5 fL (80-94); Mean Platelet Volume 11.1 fL (7.4-10.4); Monocytes # 1.8 10^3/uL (0.2-0.9); Monocytes % 7.5 %; Neutrophils # 19.88 10^3/uL (1.8-7.7); Neutrophils % 84.4 %; Nucleated Red Blood Cells # 0.1 /100WBC; Nucleated Red Blood Cells % 0.4 %; Platelet Count 183 10^3/cmm (130-400); Red Blood Count 4.62 10^6/uL (4.1-5.3); Red Cell Distribution Width 18.7 % (12.1-15.1); White Blood Count 23.6 10^3/uL (4.0-10.0)
[2020-02-12 04:52] LABS: Troponin(5th) Baseline 103 ng/L (0-15)
[2020-02-12 04:54] LABS: Alanine Aminotransferase 399 U/L (0-41); Albumin Level 3.6 g/dL (3.5-5.2); Alkaline Phosphatase 200 IU/L (40-130); Anion Gap 39.7 (5-19); Blood Urea Nitrogen 47 mg/dL (8-23); Calcium 10.4 mg/dL (8.5-10.5); Carbon Dioxide 13 mmol/L (22-29); Chloride 97 mmol/L (98-107); Globulin 3.2 g/dL (1.3-4.6); Glucose 49 mg/dL (65-115); NT Pro B Type Natriuretic Pept 13074 pg/mL (0-450); Osmolality Calculated 287 mOsm/kg (285-295); Sodium 141 mmol/L (136-145); Total Bilirubin 2.6 mg/dL (0.15-1.2); Total Protein 6.8 g/dL (6.6-8.7)
--- NOTE | 2020-02-12 04:55 | PC.NURSE ---
lab called critical trop 103, notified Dr. Collado
[2020-02-12 04:56] LABS: INR 2.01 (0.8-1.2)
[2020-02-12 04:57] LABS: Partial Thromboplastin Time 34.2 SECONDS (23.9-36.7)
[2020-02-12 04:59] LABS: Potassium 8.7 mmol/L (3.5-5.1)
[2020-02-12 05:05] LABS: Aspartate Amino Transferase 751 U/L (0-40)
--- NOTE | 2020-02-12 05:06 | CTR_ITS ---
PROCEDURE INFORMATION: Exam: CT Abdomen And Pelvis Without Contrast Exam date and time: 02/12/2020 5:19 AM Age: 79 years old Clinical indication: Abdominal pain; Generalized; Additional info: Abd pain, diarrhea, elevated bili TECHNIQUE: Imaging protocol: Computed tomography of the abdomen and pelvis without contrast. Radiation optimization: All CT scans at this facility use at least one of these dose optimization techniques: automated exposure control; mA and/or kV adjustment per patient size (includes targeted exams where dose is matched to clinical indication); or iterative reconstruction. COMPARISON: US abdomen complete* [id number] 02/05/2020 5:29 AM RADIATION DOSE METRICS: Total DLP (mGy-cm): 1285.7 FINDINGS: Lungs: Mildly increased peribronchial markings, mildly increased pulmonary vascular markings and some increased linear opacities are seen in the lower hemithoraces, findings could represent pulmonary edema. Pleural space: There is a small right pleural effusion. Tiny left pleural effusion is seen. New calcifications are seen within the coronary arteries. Heart: The cardiac profile is mildly prominent. Liver: There is mild contour irregularity of the liver suggesting cirrhosis. Gallbladder and bile ducts: Normal. No calcified stones. No ductal dilation. Pancreas: Normal. No ductal dilation. Spleen: Punctate calcifications seen within the spleen compatible with a calcified granuloma. Adrenals: Normal. No mass. Kidneys and ureters: There are bilateral hypoattenuation cystic masses seen within the kidneys, the largest seen the right measuring 3.8 cm. An isodense cystic appearing mass seen on the posterior aspect of the right kidney measuring 14 mm. This likely represents a benign hemorrhagic cyst. Stomach and bowel: Unremarkable. No obstruction. No mucosal thickening. Appendix: No evidence of appendicitis. Intraperitoneal space: There is a small amount ascites present. Vasculature: Calcifications are present within the thoracic and abdominal aorta, iliac arteries and femoral arteries bilaterally and within branches of the celiac trunk. Lymph nodes: Unremarkable. No enlarged lymph nodes. Bladder: Steen catheter is present. Bladder appears decompressed. Reproductive: Unremarkable as visualized. Bones/joints: Unremarkable. No acute fracture. Soft tissues: Unremarkable. CT/CT abdomen pelvis wo con [id number] IMPRESSION: 1. Mild nodular contour of the liver compatible with cirrhosis. 2. Benign calcified granuloma within the spleen. 3. Bilateral benign appearing cystic masses within the kidneys, the largest measuring 3.8 cm. No further workup needed. 4. Isodense cystic mass within the right kidney measuring 1.4 cm compatible with a hemorrhagic cyst. 5. Bilateral pleural effusions, right larger than left. 6. Mildly increased peribronchial markings, mildly prominent pulmonary vascular markings and linear opacities present in the lower hemithoraces, findings could represent pulmonary edema. Radiation Dose CTDIVOL = (mGy): DLP = 1285.7 (mGy-cm)
[2020-02-12 05:14] LABS: Lactate (Lactic Acid level) 13.2 mmol/L (0.5-2.2)
[2020-02-12 05:44] LABS: Add Urine Culture? Yes; Add Urine Microscopic? YES; Bacteria Urine 1+; Bilirubin Urine Neg (NEGATIVE); Blood Urine 3+ (Negative); Glucose Urine UA Norm (Normal); Ketones Urine Negative (Negative); Leukocyte Esterase Urine Negative (Negative); Nitrate Urine Negative (Negative); Protein Urine 2+ (Negative); RBC Urine 15-25 /hpf (0-2); Squamous Epithelial Cell Urine 0-4 (0-5); Urine Appearance Cloudy (CLEAR); Urine Color Yellow (Yellow); Urobilinogen Urine Norm (Negative); pH Urine 5 (5-7)
[2020-02-12] MEDS: dextrose 50% syringe 50 mL IVP ×2 (05:48→08:01)
[2020-02-12] MEDS: calcium gluconate 0.1 gm/mL 10% SDV 10mL 1 GM IVP ×2 (05:48→07:18)
[2020-02-12] MEDS: sodium chloride 0.9% 500 ML 999 ML IV (05:48)
[2020-02-12] MEDS: insulin regular-human 100 units/1 mL 10 UNIT IVP ×2 (05:48→07:59)
[2020-02-12 06:15] LABS: Troponin 5 2HR 95.72 ng/L (0-15)
--- NOTE | 2020-02-12 06:16 | ECG_ITS ---
[facility] Test Date: 2020-02-12 Pat Name: Samm Dong Department: Room: Gender: Male Vending Mechanic: : 1940 Requested By: Kee Olguin Order Number: [id number] Peewee MD: Chelsey Gonzalez M.D. Measurements Intervals [place] Rate: 97 P: 94 OR: 205 QRS: 78 QRSD: 143 T: 261 QT: 420 QTc: 536 Interpretive Statements SINUS RHYTHM INTRAVENTRICULAR CONDUCTION DELAY [130+ ms QRS DURATION] Compared to ECG 02/12/2020 03:58:55 Intraventricular conduction delay now present Atrial fibrillation no longer present Right bundle-branch block no longer present Left posterior fascicular block no longer present ST (T wave) deviation no longer present Electronically Signed On 02-13-2020 12:46:09 CDT by Chelsey Gonzalez M.D. [id number]
--- NOTE | 2020-02-12 06:21 | PC.NURSE ---
Unable to verify DNR status with family listed in the patients facesheet, [facility] unable to provide official paperwork for DNR status to ED for nurse to verify.
[2020-02-12] MEDS: sodium bicarbonate 8.4% 1 mEq/mL 50mL Syr 100 MEQ IVP (06:28)
[2020-02-12 06:29] LABS: Troponin 5 2HR Delta -7.28 ABS# (0-10)
--- NOTE | 2020-02-12 06:49 | ED_ITS ---
Documented by User: Robert Lucas DO 02/13/20 09:04 HPI - Altered Mental Status General: Chief Complaint: Altered Mental Status Stated Complaint: AMS/ HYPOTENSION Time Seen by Provider: 02/12/20 03:59 History of Present Illness: HPI narrative: 79-year-old male from the alf. He was recently hospitalized. Staff noted his change in mental status and sent him here he is a DNI which we have confirmed. Care was assumed from Dr. Collado at change of shift patient is acutely ill with leukocytosis acute renal failure and severe hypokalemia which Dr. Collado already begun to treat. [facility] PFSH: Medical History (Updated 02/12/20 @ 09:36 by Marlen Slade DO) Adult hypothyroidism -TSH wnl -on herbal thyroid replacement Atrial flutter CHF (congestive heart failure) LVEF 25% Cholestasis Chronic wound of extremity -seems to have developed s/p ORIF for fracture and subsequent osteomyelitis -wound care as needed (Santyl, absorbent dressing) -due to some noted drainage, wound culture and gram stain ordered; on empiric doxycyline -bilateral arterial doppler: normal resting CJ on L, abnormal resting CJ on R consistent with moderately severe PAD, mild PAD on L Coagulopathy Cognitive dysfunction Gout, unspecified HTN (hypertension) Renal mass Sleep apnea Troponin level elevated Surgical History History of ankle surgery History of hernia repair Family History Other Hypertension Denies family history of Bleeding disorder Social History Smoking and tobacco status: never smoked Second hand smoke exposure: No Smoking risk assessment/counseling performed?: No Alcohol intake: never Desire information about alcohol rehabilitation?: No Counseling given: No Desire information about substance/drug rehabilitation?: No Counseling given: No Household members: spouse Marital status: Current occupational status: retired History of recent travel: No Current gender identity: Male Physical Exam HENMT: COMMON NORMALS: normocephalic and atraumatic HEAD & SCALP: no rmocephalic and atraumatic Neck/C-Spine: COMMON NORMALS: full ROM, no lymphadenopathy, supple and no JVD Lymph: LYMPHATIC: no lymphadenopathy noted and no lymphedema noted Resp: EFFORT & INSPECTION: Yes tachypneic AUSCULTATION: crackles Laterality: bilateral (At the bases), wheezes and diminished lung sounds Cardio: COMMON NORMALS: no JVD, regular rate, regular rhythm and No murmurs present (Cardio) RATE: regular rate RHYTHM: regular rhythm GI: COMMON NORMALS: Soft to palpation and No hepatosplenomegaly present AUSCULTATION: Yes normoactive bowel sounds PALPATION: Yes Soft to palpation, No Tenderness to palpation present (GI), No Guarding due to palpation present (GI) and Yes No hepatosplenomegaly present Extremity: COMMON NORMALS: capillary refill normal, no clubbing, cyanosis or edema, no calf tenderness and no pedal edema NARRATIVE EXTREMITY EXAM: Left leg extremities anteriorly and 1 posteriorly for lesions irregular in shape shallow mucousy base eschars. No active drainage not erythematous. Appearance of changes from peripheral artery disease. Urinary Catheter Management^: Steen: Cath Placed During This Visit: yes Reason for Continuing Indwelling Catheter: Other Urinary Catheter Date of Insertion: 02/12/20 Urinary Catheter Time of Insertion: 05:15 Course Vital Signs: Vital signs: Vital Signs Temperature 97.6 F 02/12/20 10:17 Pulse Rate 96 02/12/20 15:58 Respiratory Rate 28 H 02/13/20 08:16 Blood Pressure 139/87 02/12/20 10:17 Pulse Oximetry 96 02/12/20 14:17 MDM - Altered Mental Status MDM Narrative: Medical decision making narrative: Care assumed from Dr. Collado if at change of course. Patient is critically ill at this point and is Do Not Recussitate according to the alf paperwork was able to contact the she is coming down to the emergency room to see the patient and discussed at the bedside she is open to the idea of comfort cares only. We have initially started treatment for hyperkalemia have consulted nephrology and the hospitalist we are all in agreement patient is most likely best treated with supportive cares at this point with his ejection fraction of 25 to 30% he is not likely to be able to tolerate hemodialysis. Discussed with also discussed Dr. Slade we are all in agreement at this point he should be made a DNI and make him comfort cares. He will be admitted to the floor we will withdrawn all other support and will keep him just as a comfort care. Lab Data: Labs: Lab Results 02/12/20 02/12/20 02/12/20 Range/Units 03:50 03:50 03:50 WBC 23.6 H (4.0-10.0) 10^3/ uL RBC 4.62 (4.1-5.3) 10^6/u L Hgb 14.8 (11.7-16.6) g/dL Hct 51.5 (42.0-52.0) % MCV 111.5 H (80-94) fL MCH 32.0 (28.0-34.0) pg MCHC 28.7 L (30.0-36.0) g/dL RDW 18.7 H (12.1-15.1) % Plt Count 183 (130-400) 10^3/c mm MPV 11.1 H (7.4-10.4) fL Neut % (Auto) 84.4 % Lymph % (Auto) 3.1 % Hodgeman % (Auto) 7.5 % Eos % (Auto) 0.0 % Baso % (Auto) 0.6 % Neut # (Auto) 19.88 H (1.8-7.7) 10^3/u L Lymph # (Auto) 0.7 L (0.8-4.8) 10^3/u L Hodgeman # (Auto) 1.8 H (0.2-0.9) 10^3/u L Eos # (Auto) 0.0 (0.0-0.8) 10^3/u L Baso # (Auto) 0.1 (0.0-0.1) 10^3/u L Nucleated RBC % (a uto) 0.4 % Nucleated RBCs # 0.1 /100WBC PT 23.50 H (10.5-13.3) SECO NDS INR 2.01 H (0.8-1.2) APTT 34.2 (23.9-36.7) SECO NDS Specimen Type Sample Site ABG pH (7.35-7.45) ABG pCO2 (35-45) mmHg ABG pO2 (80.0-100.0) mmH g ABG HCO3 (22-26) mmol/L ABG Base Excess (-2.0-2.0) mmol/ L Edmundo Test Hematocrit (42-52) % O2 Delivery Device O2 Liters/Min % Voice Systems Engineer ID Sodium 141 (136-145) mmol/L Potassium 8.7 H* (3.5-5.1) mmol/L Chloride 97 L (98-107) mmol/L Carbon Dioxide 13 L (22-29) mmol/L Anion Gap 39.7 H (5-19) BUN 47 H (8-23) mg/dL Creatinine 2.7 H (0.7-1.2) mg/dL GFR Calculation Not Reportable Glucose 49 L (65-115) mg/dL POC Glucose (70-110) mg/dL Calculated Osmolal ity 287 (285-295) mOsm/k g Lactate (0.5-2.2) mmol/L Calcium 10.4 (8.5-10.5) mg/dL Total Bilirubin 2.6 H (0.15-1.2) mg/dL AST 751 H (0-40) U/L ALT 399 H (0-41) U/L Alkaline Phosphata se 200 H (40-130) IU/L Troponin T Baselin e (0-15) ng/L Troponin T 120 Min pamunkey (0-15) ng/L Delta Troponin T (0-10) ABS# NT-Pro-B Natriuret Pep 44220 H (0-450) pg/mL Total Protein 6.8 (6.6-8.7) g/dL Albumin 3.6 (3.5-5.2) g/dL Globulin 3.2 (1.3-4.6) g/dL Urine Color (Yellow) Urine Appearance (CLEAR) Urine pH (5-7) Ur Specific Gravit y (1.005-1.030) Urine Protein (Negative) Urine Glucose (UA) (Normal) Urine Ketones (Negative) Urine Blood (Negative) Urine Nitrate (Negative) Urine Bilirubin (NEGATIVE) Urine Urobilinogen (Negative) mg/dL Ur Leukocyte Khushbu ase (Negative) Urine RBC (0-2) /hpf Urine WBC (0-5) /hpf Ur Squamous Epith Cells (0-5) Amorphous Sediment Urine Bacteria (NONE) 02/12/20 02/12/20 02/12/20 Range/Units 03:50 04:28 04:38 WBC (4.0-10.0) 10^3/ uL RBC (4.1-5.3) 10^6/u L Hgb (11.7-16.6) g/dL Hct (42.0-52.0) % MCV (80-94) fL MCH (28.0-34.0) pg MCHC (30.0-36.0) g/dL RDW (12.1-15.1) % Plt Count (130-400) 10^3/c mm MPV (7.4-10.4) fL Neut % (Auto) % Lymph % (Auto) % Hodgeman % (Auto) % Eos % (Auto) % Baso % (Auto) % Neut # (Auto) (1.8-7.7) 10^3/u L Lymph # (Auto) (0.8-4.8) 10^3/u L Hodgeman # (Auto) (0.2-0.9) 10^3/u L Eos # (Auto) (0.0-0.8) 10^3/u L Baso # (Auto) (0.0-0.1) 10^3/u L Nucleated RBC % (a uto) % Nucleated RBCs # /100WBC PT (10.5-13.3) SECO NDS INR (0.8-1.2) APTT (23.9-36.7) SECO NDS Specimen Type Arterial Sample Site Radial, left ABG pH 7.29 L (7.35-7.45) ABG pCO2 22.4 L (35-45) mmHg ABG pO2 99.7 (80.0-100.0) mmH g ABG HCO3 10.9 L (22-26) mmol/L ABG Base Excess -13.4 L (-2.0-2.0) mmol/ L Edmundo Test Pos Hematocrit 45.6 (42-52) % O2 Delivery Device Nc O2 Liters/Min 5.0 % Voice Systems Engineer ID [email or web address] Sodium (136-145) mmol/L Potassium (3.5-5.1) mmol/L Chloride (98-107) mmol/L Carbon Dioxide (22-29) mmol/L Anion Gap (5-19) BUN (8-23) mg/dL Creatinine (0.7-1.2) mg/dL GFR Calculation Glucose (65-115) mg/dL POC Glucose (70-110) mg/dL Calculated Osmolal ity (285-295) mOsm/k g Lactate 13.2 H* (0.5-2.2) mmol/L Calcium (8.5-10.5) mg/dL Total Bilirubin (0.15-1.2) mg/dL AST (0-40) U/L ALT (0-41) U/L Alkaline Phosphata se (40-130) IU/L Troponin T Baselin e 103 H* (0-15) ng/L Troponin T 120 Min pamunkey (0-15) ng/L Delta Troponin T (0-10) ABS# NT-Pro-B Natriuret Pep (0-450) pg/mL Total Protein (6.6-8.7) g/dL Albumin (3.5-5.2) g/dL Globulin (1.3-4.6) g/dL Urine Color (Yellow) Urine Appearance (CLEAR) Urine pH (5-7) Ur Specific Gravit y (1.005-1.030) Urine Protein (Negative) Urine Glucose (UA) (Normal) Urine Ketones (Negative) Urine Blood (Negative) Urine Nitrate (Negative) Urine Bilirubin (NEGATIVE) Urine Urobilinogen (Negative) mg/dL Ur Leukocyte Khushbu ase (Negative) Urine RBC (0-2) /hpf Urine WBC (0-5) /hpf Ur Squamous Epith Cells (0-5) Amorphous Sediment Urine Bacteria (NONE) 02/12/20 02/12/20 02/12/20 Range/Units 05:13 05:50 07:17 WBC (4.0-10.0) 10^3/ uL RBC (4.1-5.3) 10^6/u L Hgb (11.7-16.6) g/dL Hct (42.0-52.0) % MCV (80-94) fL MCH (28.0-34.0) pg MCHC (30.0-36.0) g/dL RDW (12.1-15.1) % Plt Count (130-400) 10^3/c mm MPV (7.4-10.4) fL Neut % (Auto) % Lymph % (Auto) % Hodgeman % (Auto) % Eos % (Auto) % Baso % (Auto) % Neut # (Auto) (1.8-7.7) 10^3/u L Lymph # (Auto) (0.8-4.8) 10^3/u L Hodgeman # (Auto) (0.2-0.9) 10^3/u L Eos # (Auto) (0.0-0.8) 10^3/u L Baso # (Auto) (0.0-0.1) 10^3/u L Nucleated RBC % (a uto) % Nucleated RBCs # /100WBC PT (10.5-13.3) SECO NDS INR (0.8-1.2) APTT (23.9-36.7) SECO NDS Specimen Type Sample Site ABG pH (7.35-7.45) ABG pCO2 (35-45) mmHg ABG pO2 (80.0-100.0) mmH g ABG HCO3 (22-26) mmol/L ABG Base Excess (-2.0-2.0) mmol/ L Edmundo Test Hematocrit (42-52) % O2 Delivery Device O2 Liters/Min % Voice Systems Engineer ID Sodium (136-145) mmol/L Potassium (3.5-5.1) mmol/L Chloride (98-107) mmol/L Carbon Dioxide (22-29) mmol/L Anion Gap (5-19) BUN (8-23) mg/dL Creatinine (0.7-1.2) mg/dL GFR Calculation Glucose (65-115) mg/dL POC Glucose 131 (70-110) mg/dL Calculated Osmolal ity (285-295) mOsm/k g Lactate (0.5-2.2) mmol/L Calcium (8.5-10.5) mg/dL Total Bilirubin (0.15-1.2) mg/dL AST (0-40) U/L ALT (0-41) U/L Alkaline Phosphata se (40-130) IU/L Troponin T Baselin e (0-15) ng/L Troponin T 120 Min pamunkey 95.72 H (0-15) ng/L Delta Troponin T -7.28 L (0-10) ABS# NT-Pro-B Natriuret Pep (0-450) pg/mL Total Protein (6.6-8.7) g/dL Albumin (3.5-5.2) g/dL Globulin (1.3-4.6) g/dL Urine Color Yellow (Yellow) Urine Appearance Cloudy (CLEAR) Urine pH 5 (5-7) Ur Specific Gravit y 1.020 (1.005-1.030) Urine Protein 2+ H (Negative) Urine Glucose (UA) Norm (Normal) Urine Ketones Negative (Negative) Urine Blood 3+ H (Negative) Urine Nitrate Negative (Negative) Urine Bilirubin Neg (NEGATIVE) Urine Urobilinogen Norm (Negative) mg/dL Ur Leukocyte Khushbu ase Negative (Negative) Urine RBC 15-25 H (0-2) /hpf Urine WBC 10-15 H (0-5) /hpf Ur Squamous Epith Cells 0-4 H (0-5) Amorphous Sediment Not Reportable Urine Bacteria 1+ H (NONE) Discharge Plan Discharge Admit Provider: Marlen Slade Discharge Date/Time: 02/12/20 09:55 Coding Level of Care Code ED Head Filter Tank Tender Helper for Chg Fwd Exam Comprehensive Documented by User: Kee Collado DO 02/12/20 08:10 HPI - Altered Mental Status General: Chief Complaint: Altered Mental Status Stated Complaint: AMS/ HYPOTENSION Time Seen by Provider: 02/12/20 03:59 History of Present Illness: HPI narrative: This is an 79-year-old gentleman who presents by ambulance from the alf. He was found to have an altere d mental status earlier in the morning around 230 or so. Evidently his blood pressure was low. He was not responding appropriately. He did not have a fever. There was some shortness of breath. MD complaint: altered mental status and decreased responsiveness Onset (ago): hour(s) Timing confirmed by: caregiver Severity: moderate Consistency of symptoms: Getting Worse Review of Systems General: Reports: ROS unobtainable due to mental status PFS ED PFSH: Medical History (Updated 02/12/20 @ 09:36 by Marlen Slade DO) Adult hypothyroidism -TSH wnl -on herbal thyroid replacement Atrial flutter CHF (congestive heart failure) LVEF 25% Cholestasis Chronic wound of extremity -seems to have developed s/p ORIF for fracture and subsequent osteomyelitis -wound care as needed (Santyl, absorbent dressing) -due to some noted drainage, wound culture and gram stain ordered; on empiric doxycyline -bilateral arterial doppler: normal resting CJ on L, abnormal resting CJ on R consistent with moderately severe PAD, mild PAD on L Coagulopathy Cognitive dysfunction Gout, unspecified HTN (hypertension) Renal mass Sleep apnea Troponin level elevated Surgical History History of ankle surgery History of hernia repair Family History Other Hypertension Denies family history of Bleeding disorder Social History Smoking and tobacco status: never smoked Second hand smoke exposure: No Smoking risk assessment/counseling performed?: No Alcohol intake: never Desire information about alcohol rehabilitation?: No Counseling given: No Desire information about substance/drug rehabilitation?: No Counseling given: No Household members: spouse Marital status: Current occupational status: retired History of recent travel: No Current gender identity: Male Physical Exam Const: EXAM LIMITATIONS: altered mental status GENERAL APPEARANCE: in distress and ill appearing ORIENTATION/CONSCIOUSNESS: Yes patient obtunded HENMT: COMMON NORMALS: normocephalic, external ears normal and Normal external nose present HEAD & SCALP: normocephalic FACE & SINUS: normal facial exam NOSE: Normal external nose present and No nasal discharge present EXTERNAL EAR: Yes external ears normal Eye: COMMON NORMALS: Equal, round and reactive pupils present, EOMs intact bilaterally and conjunctivae normal EYELID: eyelids normal CONJUNCTIVA: Yes conjunctivae normal PUPIL: Yes Equal, round and reactive pupils present Neck/C-Spine: GENERAL: No tracheal deviation Chest: COMMONS NORMALS: normal inspection of the chest CHEST: No tenderness Resp: EFFORT & INSPECTION: Yes tachypneic, Yes respiratory distress, No re tractions, Yes uses accessory muscles and No tracheal deviation AUSCULTATION: no rhonchi, no wheezes and diminished lung sounds Cardio: COMMON NORMALS: regular rhythm RATE: tachycardic RHYTHM: regular rhythm HEART SOUNDS: no murmurs PERIPHERAL PULSES: radial pulses present GI: INSPECTION: No abdominal distension AUSCULTATION: No Hyperactive bowel sounds present and No Hypoactive bowel sounds present PALPATION: No Guarding due to palpation present (GI) and No Rigid due to palpation PERCUSSION: no dullness to percussion and no tympanic to percussion Psych: SPEECH: Yes incoherent THOUGHT PROCESS: incoherent Skin: COMMON NORMALS: no rashes or lesions noted GENERAL SKIN EXAM: no rashes or lesions noted Urinary Catheter Management^: Steen: Cath Placed During This Visit: no Course Vital Signs: Vital signs: Vital Signs Temperature 97.6 F 02/12/20 10:17 Pulse Rate 96 02/12/20 15:58 Respiratory Rate 28 H 02/13/20 08:16 Blood Pressure 139/87 02/12/20 10:17 Pulse Oximetry 96 02/12/20 14:17 MDM - Altered Mental Status MDM Narrative: Medical decision making narrative: 79-year-old male who presents from the alf acutely very ill. He was initially quite hypotensive with blood pressures in the mid 70s systolic. He responded well to a fluid bolus initially, with pressures reaching 120 systolic his white blood cell count is 23.6 with a left shift. His potassium is 8.7. BUN 47, creatinine 2.7 with large anion gap and a bicarbonate of 13. He exhibits foreign food cook specialty small type breathing, and therefore has a low PCO2 on his blood gas which is acidotic as well. He has been given insulin, glucose, calcium gluconate, albuterol nebulizer, and bicarbonate for the acidosis and hyperkalemia. He has been given fluid bolus for likely sepsis. Chest x-ray does not appear to have changed. His head CT shows no new lesions or hemorrhage. He is checked out to Dr. Lucas at shift change to take over his care. This patient's clinical situation is quite dire. Evidently, he was made DNR in the alf recently. We have a clinical note from the nurse stating this, as well as it is on his face sheet. Even though we have not had the ability to speak with a D POA, this patient's condition is so dire that any drastic measures including intubation and chest compressions would likely prove futile. We are attempting to get a hold of his , the DPJUDY. Lab Data: Labs: Lab Results 02/12/20 02/12/2020 Range/Units 03:50 03:50 03:50 WBC 23.6 H (4.0-10.0) 10^3/ uL RBC 4.62 (4.1-5.3) 10^6/u L Hgb 14.8 (11.7-16.6) g/dL Hct 51.5 (42.0-52.0) % MCV 111.5 H (80-94) fL MCH 32.0 (28.0-34.0) pg MCHC 28.7 L (30.0-36.0) g/dL RDW 18.7 H (12.1-15.1) % Plt Count 183 (130-400) 10^3/c mm MPV 11.1 H (7.4-10.4) fL Neut % (Auto) 84.4 % Lymph % (Auto) 3.1 % Hodgeman % (Auto) 7.5 % Eos % (Auto) 0.0 % Baso % (Auto) 0.6 % Neut # (Auto) 19.88 H (1.8-7.7) 10^3/u L Lymph # (Auto) 0.7 L (0.8-4.8) 10^3/u L Hodgeman # (Auto) 1.8 H (0.2-0.9) 10^3/u L Eos # (Auto) 0.0 (0.0-0.8) 10^3/u L Baso # (Auto) 0.1 (0.0-0.1) 10^3/u L Nucleated RBC % (a uto) 0.4 % Nucleated RBCs # 0.1 /100WBC PT 23.50 H (10.5-13.3) SECO NDS INR 2.01 H (0.8-1.2) APTT 34.2 (23.9-36.7) SECO NDS Specimen Type Sample Site ABG pH (7.35-7.45) ABG pCO2 (35-45) mmHg ABG pO2 (80.0-100.0) mmH g ABG HCO3 (22-26) mmol/L ABG Base Excess (-2.0-2.0) mmol/ L Edmundo Test Hematocrit (42-52) % O2 Delivery Device O2 Liters/Min % Voice Systems Engineer ID Sodium 141 (136-145) mmol/L Potassium 8.7 H* (3.5-5.1) mmol/L Chloride 97 L (98-107) mmol/L Carbon Dioxide 13 L (22-29) mmol/L Anion Gap 39.7 H (5-19) BUN 47 H (8-23) mg/dL Creatinine 2.7 H (0.7-1.2) mg/dL GFR Calculation Not Reportable Glucose 49 L (65-115) mg/dL POC Glucose (70-110) mg/dL Calculated Osmolal ity 287 (285-295) mOsm/k g Lactate (0.5-2.2) mmol/L Calcium 10.4 (8.5-10.5) mg/dL Total Bilirubin 2.6 H (0.15-1.2) mg/dL AST 751 H (0-40) U/L ALT 399 H (0-41) U/L Alkaline Phosphata se 200 H (40-130) IU/L Troponin T Baselin e (0-15) ng/L Troponin T 120 Min pamunkey (0-15) ng/L Delta Troponin T (0-10) ABS# NT-Pro-B Natriuret Pep 96158 H (0-450) pg/mL Total Protein 6.8 (6.6-8.7) g/dL Albumin 3.6 (3.5-5.2) g/dL Globulin 3.2 (1.3-4.6) g/dL Urine Color (Yellow) Urine Appearance (CLEAR) Urine pH (5-7) Ur Specific Gravit y (1.005-1.030) Urine Protein (Negative) Urine Glucose (UA) (Normal) Urine Ketones (Negative) Urine Blood (Negative) Urine Nitrate (Negative) Urine Bilirubin (NEGATIVE) Urine Urobilinogen (Negative) mg/dL Ur Leukocyte Khushbu ase (Negative) Urine RBC (0-2) /hpf Urine WBC (0-5) /hpf Ur Squamous Epith Cells (0-5) Amorphous Sediment Urine Bacteria (NONE) 02/12/20 02/12/20 02/12/20 Range/Units 03:50 04:28 04:38 WBC (4.0-10.0) 10^3/ uL RBC (4.1-5.3) 10^6/u L Hgb (11.7-16.6) g/dL Hct (42.0-52.0) % MCV (80-94) fL MCH (28.0-34.0) pg MCHC (30.0-36.0) g/dL RDW (12.1-15.1) % Plt Count (130-400) 10^3/c mm MPV (7.4-10.4) fL Neut % (Auto) % Lymph % (Auto) % Hodgeman % (Auto) % Eos % (Auto) % Baso % (Auto) % Neut # (Auto) (1.8-7.7) 10^3/u L Lymph # (Auto) (0.8-4.8) 10^3/u L Hodgeman # (Auto) (0.2-0.9) 10^3/u L Eos # (Auto) (0.0-0.8) 10^3/u L Baso # (Auto) (0.0-0.1) 10^3/u L Nucleated RBC % (a uto) % Nucleated RBCs # /100WBC PT (10.5-13.3) SECO NDS INR (0.8-1.2) APTT (23.9-36.7) SECO NDS Specimen Type Arterial Sample Site Radial, left ABG pH 7.29 L (7.35-7.45) ABG pCO2 22.4 L (35-45) mmHg ABG pO2 99.7 (80.0-100.0) mmH g ABG HCO3 10.9 L (22-26) mmol/L ABG Base Excess -13.4 L (-2.0-2.0) mmol/ L Edmundo Test Pos Hematocrit 45.6 (42-52) % O2 Delivery Device Nc O2 Liters/Min 5.0 % Voice Systems Engineer ID [email or web address] Sodium (136-145) mmol/L Potassium (3.5-5.1) mmol/L Chloride (98-107) mmol/L Carbon Dioxide (22-29) mmol/L Anion Gap (5-19) BUN (8-23) mg/dL Creatinine (0.7-1.2) mg/dL GFR Calculation Glucose (65-115) mg/dL POC Glucose (70-110) mg/dL Calculated Osmolal ity (285-295) mOsm/k g Lactate 13.2 H* (0.5-2.2) mmol/L Calcium (8.5-10.5) mg/dL Total Bilirubin (0.15-1.2) mg/dL AST (0-40) U/L ALT (0-41) U/L Alkaline Phosphata se (40-130) IU/L Troponin T Baselin e 103 H* (0-15) ng/L Troponin T 120 Min pamunkey (0-15) ng/L Delta Troponin T (0-10) ABS# NT-Pro-B Natriuret Pep (0-450) pg/mL Total Protein (6.6-8.7) g/dL Albumin (3.5-5.2) g/dL Globulin (1.3-4.6) g/dL Urine Color (Yellow) Urine Appearance (CLEAR) Urine pH (5-7) Ur Specific Gravit y (1.005-1.030) Urine Protein (Negative) Urine Glucose (UA) (Normal) Urine Ketones (Negative) Urine Blood (Negative) Urine Nitrate (Negative) Urine Bilirubin (NEGATIVE) Urine Urobilinogen (Negative) mg/dL Ur Leukocyte Khushbu ase (Negative) Urine RBC (0-2) /hpf Urine WBC (0-5) /hpf Ur Squamous Epith Cells (0-5) Amorphous Sediment Urine Bacteria (NONE) 02/12/20 02/12/20 02/12/20 Range/Units 05:13 05:50 07:17 WBC (4.0-10.0) 10^3/ uL RBC (4.1-5.3) 10^6/u L Hgb (11.7-16.6) g/dL Hct (42.0-52.0) % MCV (80-94) fL MCH (28.0-34.0) pg MCHC (30.0-36.0) g/dL RDW (12.1-15.1) % Plt Count (130-400) 10^3/c mm MPV (7.4-10.4) fL Neut % (Auto) % Lymph % (Auto) % Hodgeman % (Auto) % Eos % (Auto) % Baso % (Auto) % Neut # (Auto) (1.8-7.7) 10^3/u L Lymph # (Auto) (0.8-4.8) 10^3/u L Hodgeman # (Auto) (0.2-0.9) 10^3/u L Eos # (Auto) (0.0-0.8) 10^3/u L Baso # (Auto) (0.0-0.1) 10^3/u L Nucleated RBC % (a uto) % Nucleated RBCs # /100WBC PT (10.5-13.3) SECO NDS INR (0.8-1.2) APTT (23.9-36.7) SECO NDS Specimen Type Sample Site ABG pH (7.35-7.45) ABG pCO2 (35-45) mmHg ABG pO2 (80.0-100.0) mmH g ABG HCO3 (22-26) mmol/L ABG Base Excess (-2.0-2.0) mmol/ L Edmundo Test Hematocrit (42-52) % O2 Delivery Device O2 Liters/Min % Voice Systems Engineer ID Sodium (136-145) mmol/L Potassium (3.5-5.1) mmol/L Chloride (98-107) mmol/L Carbon Dioxide (22-29) mmol/L Anion Gap (5-19) BUN (8-23) mg/dL Creatinine (0.7-1.2) mg/dL GFR Calculation Glucose (65-115) mg/dL POC Glucose 131 (70-110) mg/dL Calculated Osmolal ity (285-295) mOsm/k g Lactate (0.5-2.2) mmol/L Calcium (8.5-10.5) mg/dL Total Bilirubin (0.15-1.2) mg/dL AST (0-40) U/L ALT (0-41) U/L Alkaline Phosphata se (40-130) IU/L Troponin T Baselin e (0-15) ng/L Troponin T 120 Min pamunkey 95.72 H (0-15) ng/L Delta Troponin T -7.28 L (0-10) ABS# NT-Pro-B Natriuret Pep (0-450) pg/mL Total Protein (6.6-8.7) g/dL Albumin (3.5-5.2) g/dL Globulin (1.3-4.6) g/dL Urine Color Yellow (Yellow) Urine Appearance Cloudy (CLEAR) Urine pH 5 (5-7) Ur Specific Gravit y 1.020 (1.005-1.030) Urine Protein 2+ H (Negative) Urine Glucose (UA) Norm (Normal) Urine Ketones Negative (Negative) Urine Blood 3+ H (Negative) Urine Nitrate Negative (Negative) Urine Bilirubin Neg (NEGATIVE) Urine Urobilinogen Norm (Negative) mg/dL Ur Leukocyte Khushbu ase Negative (Negative) Urine RBC 15-25 H (0-2) /hpf Urine WBC 10-15 H (0-5) /hpf Ur Squamous Epith Cells 0-4 H (0-5) Amorphous Sediment Not Reportable Urine Bacteria 1+ H (NONE) Critical Care Time Critical Care Time: Critical Care Time: Yes Total Critical Care Time: 45 Attestation: This case had a high probability of a clinically significant, sudden, or life threatening deterioration of this patient's condition which required my full and direct attention, intervention and personal management. Discharge Plan Discharge Admit Provider: Marlen Slade Discharge Date/Time: 02/12/20 09:55 Coding Level of Care Code ED Head Filter Tank Tender Helper for Chg Fwd Exam Comprehensive
[2020-02-12 07:20] LABS: Glucose Point of Care 131 mg/dL (70-110)
[2020-02-12] MEDS: levofloxacin-dextrose 5 % 750 MG/150 ML PREMIX 100 MG IV (07:20)
[2020-02-12] MEDS: sodium chloride 0.9% 1,000 ML 999 ML IV (07:21)
[2020-02-12] MEDS: LORazepam 2 mg/mL INJ 1 mL IVP (07:31)
[2020-02-12] MEDS: sodium bicarbonate 150 MEQ in dextrose 5% 1,000 ML IV (08:07)
[2020-02-12] MEDS: LORazepam 2 mg/mL INJ 1 mL (08:25)
--- NOTE | 2020-02-12 08:50 | PM.CONSULT ---
Providers/Reason For Consult Consulting Physican/Specialty*: Nephro Reason for Consult*: HyperK and KATLYN History of Present Illness History of Present Illness Samm Dong is a 79 year old male Meds/Allergies Home Medications and Allergies Home Medications Medication Instructions Recorded Confirmed Last Taken Type [place] Thyroid 60 mg PO DAILY #30 tab 02/09/20 Unknown Rx aspirin 325 mg PO DAILY #30 tab 02/09/20 Unknown Rx ciprofloxacin HCl 500 mg PO BID 10 Days #20 tab 02/09/20 Unknown Rx collagenase clostridium histo. 1 applic TOPICAL DAILY #30 g 02/09/20 Unknown Rx [Santyl] diltiazem HCl 120 mg PO DAILY #30 cap 02/09/20 Unknown Rx furosemide 40 mg PO DAILY #30 tab 02/09/20 Unknown Rx metoprolol tartrate 50 mg PO Q12H #30 tab 02/09/20 Unknown Rx potassium chloride 40 meq PO DAILY #30 tab 02/09/20 Unknown Rx tamsulosin 0.4 mg PO DAILY #30 cap 02/09/20 Unknown Rx Allergies Allergy/AdvReac Type Severity Reaction Status Date / Time Penicillins Allergy Unknown Unknown Verified 01/09/20 15:28 vancomycin Allergy Unknown Unknown Verified 01/09/20 15:29 Current Medications Current Medications Generic Name Dose Route Start Last Admin Trade Name Freq PRN Reason Stop Dose Admin Sodium Bicarbonate 150 meq/ 1,150 mls @ 0 mls/hr 02/12/20 07:15 02/12/20 08:07 Dextrose IV 150 mls/hr .Q0M HIRAM Administration Per Protocol PFSH Acute PFSH: Medical History Adult hypothyroidism -TSH wnl -on herbal thyroid replacement Atrial flutter -Appears to be new onset atrial flutter, confirmed on EKG -Telemetry monitoring -Echo as noted below -We will need long-term anticoagulation, [id number] score-4; will discuss this further with Zuleima -remains in RVR, will increase BB dose and add low dose cardizem CHF (congestive heart failure) -Noted dyspnea with exertion, progressively worsening shortness of breath, lower extremity edema, weight gain secondary to acute systolic CHF exacerbation as evidenced clinically and with noted BNP elevation greater than 14,000, right pleural effusion, minimal left pleural effusion, pulmonary vascular congestion -Minimal ascites on abdominal ultrasound -IV diuresis with lasix; so far has had a negative fluid balance of 7.3 L. Clinically compensated so on oral Lasix -daily weights, monitor Is & Os -VSS; continue to monitor -Echo: EF=25-30%, global LV hypokinesis, severely decreased LV systolic function, moderate biatrial enlargement, mild MR, mild , mild AR, moderate TR Cholestasis Chronic wound of extremity -seems to have developed s/p ORIF for fracture and subsequent osteomyelitis -wound care as needed (Santyl, absorbent dressing) -due to some noted drainage, wound culture and gram stain ordered; on empiric doxycyline -bilateral arterial doppler: normal resting CJ on L, abnormal resting CJ on R consistent with moderately severe PAD, mild PAD on L Coagulopathy Cognitive dysfunction Gout, unspecified HTN (hypertension) -VSS; continue to monitor Renal mass -Will require follow-up imaging for noted right renal masses as noted above Sleep apnea Troponin level elevated -troponins noted with significant delta -likely secondary to demand ischemia from acute CHF exacerbation -noted atrial flutter on ECGs -telemetry monitoring -JAVIER -on BB; increased dose for more optimal heart rate control -continue to monitor vital signs -Echo noted above Surgical History History of ankle surgery History of hernia repair Family History Other Hypertension Denies family history of Bleeding disorder Social History Smoking and tobacco status: never smoked Second hand smoke exposure: No Smoking risk assessment/counseling performed?: No Alcohol intake: never Desire information about alcohol rehabilitation?: No Counseling given: No Desire information about substance/drug rehabilitation?: No Counseling given: No Household members: spouse Marital status: Current occupational status: retired History of recent travel: No Current gender identity: Male Vitals/I&O/Wt Last Vital Signs Temp 98.7 F 02/12/20 03:54 Pulse 82 02/12/20 08:16 Resp 17 02/12/20 08:16 BP 133/88 02/12/20 08:16 Pulse Ox 92 02/12/20 08:16 Weight last 48 hrs Weight 79.379 kg Physical Exam Urinary Catheter Management^: Steen: Cath Placed During This Visit: yes Reason for Continuing Indwelling Catheter: Other Urinary Catheter Date of Insertion: 02/12/20 Urinary Catheter Time of Insertion: 05:15 Data Micro: Micro: Microbiology 02/12/20 04:43 Blood Culture - Pr eliminary Blood SPECIMEN HUSSEIN [place] 02/12/20 05:00 Blood Culture - Pr eliminary Blood SPECIMEN HUSSEIN [place] A&P Additional A&P Information Called by Dr Haynes this am for consultation on this unfortunate gentleman. He is now comfort measures and so dialysis therapy not indicated. Please do not hesitate to call me should his situation change and we may be of further assistance in his care Coding Level of Care Code Acute Business Unit Manager for Janel Sanchez
--- NOTE | 2020-02-12 09:04 | PC.NURSE ---
DECISION WAS MADE TO PUT PATIENT ON COMFORT CARE ALL MEDS DISCONTINUED AND PATIENT REMOVED FORM BIPAP
--- NOTE | 2020-02-12 09:25 | PM.HP ---
Providers/Chief Complaint Admitting Physician: Marlen Slade DO Chief Complaint: AMS/ HYPOTENSION History of Present Illness Samm Dong is a 79 year old male with a past medical history of mild aortic stenosis, systolic congestive heart failure, peripheral artery disease, hypothyroidism atrial fibrillation that presented to the emergency department today for altered mental status. Patient does have a history of dementia according to family. Patient was brought into the day for increasing shortness of breath and altered mental status. He was noted to be hypotensive and upon further evaluation noted to have acute liver failure, acute renal failure with concern for underlying systolic congestive heart failure. Patient was noted to have acute kidney failure with a potassium of 8.7. Given bicarb, insulin, D50, Kayexalate and nephrology was consulted. After patient's significant arrived further discussion was had about patient's critical condition and poor prognosis. After further discussion chose to transition to comfort care measures. Discussion with patient's daughter, Trudi, over the phone and made her aware of patient's admission and transition of care to comfort care measures. She reported that she is an internal medicine physician in [facility], she verbalized understanding and agreed with plan. She again noted that she would like to focus on his comfort and was in support of decision. Review of Systems General: Reports: ROS unobtainable due to mental status Medications/Allergies Home Medications Medication Instructions Recorded Confirmed Last Taken Type [place] Thyroid 60 mg PO DAILY #30 tab 02/09/20 Unknown Rx aspirin 325 mg PO DAILY #30 tab 02/09/20 Unknown Rx ciprofloxacin HCl 500 mg PO BID 10 Days #20 tab 02/09/20 Unknown Rx collagenase clostridium histo. 1 applic TOPICAL DAILY #30 g 02/09/20 Unknown Rx [Santyl] diltiazem HCl 120 mg PO DAILY #30 cap 02/09/20 Unknown Rx furosemide 40 mg PO DAILY #30 tab 02/09/20 Unknown Rx metoprolol tartrate 50 mg PO Q12H #30 tab 02/09/20 Unknown Rx potassium chloride 40 meq PO DAILY #30 tab 02/09/20 Unknown Rx tamsulosin 0.4 mg PO DAILY #30 cap 02/09/20 Unknown Rx Allergies Allergy/AdvReac Type Severity Reaction Status Date / Time Penicillins Allergy Unknown Unknown Verified 01/09/20 15:28 vancomycin Allergy Unknown Unknown Verified 01/09/20 15:29 PFSH Acute PFSH: Medical History (Updated 02/12/20 @ 09:36 by Marlen Slade DO) Adult hypothyroidism -TSH wnl -on herbal thyroid replacement Atrial flutter CHF (congestive heart failure) LVEF 25% Cholestasis Chronic wound of extremity -seems to have developed s/p ORIF for fracture and subsequent osteomyelitis -wound care as needed (Santyl, absorbent dressing) -due to some noted drainage, wound culture and gram stain ordered; on empiric doxycyline -bilateral arterial doppler: normal resting CJ on L, abnormal resting CJ on R consistent with moderately severe PAD, mild PAD on L Coagulopathy Cognitive dysfunction Gout, unspecified HTN (hypertension) Renal mass Sleep apnea Troponin level elevated Surgical History History of ankle surgery History of hernia repair Family History Other Hypertension Denies family history of Bleeding disorder Social History Smoking and tobacco status: never smoked Second hand smoke exposure: No Smoking risk assessment/counseling performed?: No Alcohol intake: never Desire information about alcohol rehabilitation?: No Counseling given: No Desire information about substance/drug rehabilitation?: No Counseling given: No Household members: spouse Marital status: Current occupational status: retired History of recent travel: No Current gender identity: Male Vitals/I&O/Wt Last Vital Signs Temp 98.7 F 02/12/20 03:54 Pulse 82 02/12/20 08:16 Resp 17 02/12/20 08:16 BP 133/88 02/12/20 08:16 Pulse Ox 92 02/12/20 08:16 Weight last 48 hrs Weight 79.379 kg Physical Exam Const: ORIENTATION/CONSCIOUSNESS: Yes lethargic HENMT: COMMON NORMALS: normocephalic and atraumatic HEAD & SCALP: normocephalic and atraumatic Eye: OTHER: Patient resting comfortably with eyes closed, exam deferred Neck/C-Spine: COMMON NORMALS: supple GENERAL: Yes normal visual inspection Resp: OTHER: BiPAP mask initially in place with tachypneic and shallow respirations, transition to nasal cannula during exam. Further exam deferred due to patient transitioning to comfort care Cardio: COMMON NORMALS: regular rate and regular rhythm RATE: regular rate RHYTHM: regular rhythm OTHER: Systolic murmur GI: OTHER: Exam deferred as patient transitioning to comfort care Extremity: NARRATIVE EXTREMITY EXAM: Full exam deferred due to patient transitioning to comfort care, chronic anterior pinto ulcerations over the left lower extremity Neuro: SENSORIUM/ORIENTATION: Yes lethargic OTHER: Patient lethargic, nonverbal at this time Psych: OTHER: Lethargic Skin: NARRATIVE SKIN EXAM: Full exam deferred due to patient transitioning to comfort care, left lower extremity skin ulcerations noted Urinary Catheter Management^: Steen: Cath Placed During This Visit: yes Reason for Continuing Indwelling Catheter: Other Urinary Catheter Date of Insertion: 02/12/20 Urinary Catheter Time of Insertion: 05:15 Data : 02/12/20 03:50 02/12/20 03:50 Micro: Microbiology 02/12/20 04:43 Blood Culture - Preliminary Blood SPECIMEN COLLECTED 02/12/20 05:00 Blood Culture - Preliminary Blood SPECIMEN COLLECTED CT Abd/Pel: I personally reviewed and interpreted this imaging study as follows: Radiologist's impression: IMPRESSION: 1. Mild nodular contour of the liver compatible with cirrhosis. 2. Benign calcified granuloma within the spleen. 3. Bilateral benign appearing cystic masses within the kidneys, the largest measuring 3.8 cm. No further workup needed. 4. Isodense cystic mass within the right kidney measuring 1.4 cm compatible with a hemorrhagic cyst. 5. Bilateral pleural effusions, right larger than left. 6. Mildly increased peribronchial markings, mildly prominent pulmonary vascular markings and linear opacities present in the lower hemithoraces, findings could represent pulmonary edema. CT Head: I personally reviewed and interpreted this imaging study as follows: Radiologist's impression: FINDINGS: Brain: There is moderate diffuse cerebral atrophy. Patchy areas of hypoattenuation are seen in the deep white matter of the cerebral hemispheres bilaterally compatible with deep white matter microvascular disease. Hypoattenuation seen within the right anterior limb of the internal capsule and frontal lobe white matter compatible with a chronic lacunar infarction. Ventricles: Normal. No ventriculomegaly. Bones/joints: Unremarkable. No acute fracture. Sinuses: Mucosal thickening and fluid is seen within the ethmoidal sinuses bilaterally. Mastoid air cells: Visualized mastoid air cells are well aerated. Soft tissues: Unremarkable. CT/CT head wo con* [id number] IMPRESSION: There are no acute intracranial findings. Stable head CT compared with 01/28/2017. CXR: I personally reviewed and interpreted this imaging study as follows: Radiologist's impression: XR/XR chest 1V portable [id number] IMPRESSION: 1. Left lateral basilar infiltrate. Pneumonitis is difficult to exclude. Clinical correlation is recommended. 2. Stable right basilar pulmonary subsegmental atelectasis. 3. Improved pulmonary vascular congestion. 4. Decreased, minimal right pleural effusion. A&P Assessment and plan (1) Acute metabolic encephalopathy: Acute metabolic encephalopathy with concern for sepsis, acute liver and acute renal failure Discussion with patient's at bedside as well as patient's daughter, who is an internal medicine physician, over the phone Family agrees that due to patient's critical condition and poor chronic underlying health they will transition to comfort care measures at this time Admit to medical floor for comfort care measures of the dying patient. Morphine and Ativan as needed for pain or air hunger Atropine drops as needed for congestion Case management consultation Status: Acute (2) Acute hyperkalemia: Initially consulted nephrology while patient was in the emergency department, this is been canceled this patient is transitioning to comfort care Status: Acute (3) Acute renal failure: With plan to transition to comfort care as above, will cancel nephrology consultation Status: Acute (4) Acute liver failure: History of cholelithiasis, CT scan of the abdomen and pelvis as above No further evaluation at this time or treatment as patient will be transitioning to comfort care Status: Acute (5) CHF (congestive heart failure): Severe systolic congestive heart failure that is chronic in nature with an LVEF of 20% along with mild aortic stenosis Transition to comfort care measures at this time Status: Acute Qualifiers: Heart failure chronicity: acute on chronic Heart failure type: systolic Qualified Code(s): I50.23 - Acute on chronic systolic (congestive) heart failure Additional A&P Information Noninvasive comfort care measures: Continue with IV morphine and Ativan as needed for pain and air hunger, if patient loses IV access will transition to sublingual medications. Case management consultation. Discussed with patient's at bedside, she verbalizes and understands and agrees with plan. Discussed with patient's daughter, Trudi, over the phone and she verbalizes understanding and agrees with plan. We will continue to focus on patient's comfort. Expected within the next 24 to 72 hours therefore will make inpatient admission as do not believe patient would tolerate disposition DVT ppx: NONE due to patient being comfort care Diet: As tolerated Attestations Medical Necessity Statement*: Patient requires admission to the hospital due to chronic systolic congestive heart failure with acute liver and renal failure requiring admission for comfort care measures for the dying patient. Expected stay greater than 2 midnights. Coding Level of Care Code Acute Product Safety Professional for Janel Fwd Exam Expanded Problem Focused Diagnoses Acute metabolic encephalopathy G93.41 Acute hyperkalemia E87.5 Acute renal failure N17.9 Acute liver failure K72.00 CHF (congestive heart failure) I50.23 Heart failure chronicity: acute on chronic Heart failure type: systolic
[2020-02-12] MEDS: morphine 4 mg/mL SDV 1 mL 2 MG IVP (10:00)
[2020-02-12] MEDS: LORazepam 2 mg/mL INJ 1 mL 1 MG IVP ×3 (10:03→20:45)
--- NOTE | 2020-02-12 10:03 | PC.NURSE ---
Patient arrived to floor from ER via gurney by DAV Martinez. Patient is agressive pulling and moaning in pain. He has wounds on left lower extremity clustered together to measure at 3.5 by 2.0 with a depth of 1.0. Slough noted and purlent drained present. Bilateral Lower extremities noted to be 3+ pitting Edema. Patient has bruising to lower abd. Patient is on 3L NC, blunt is in place and appears to be patent and draining. Penis is noted to have erythema present. Buttock has a few skin tears present and Optifoam placed and Aloe [place] applied. Patient placed on back due to moaning upon Turning. Charge Nurse administered Ativan and Morphine and patient is resting at this time with spouse/DPOA present. DANNY HUNTER
--- NOTE | 2020-02-12 19:27 | PC.NURSE ---
Patients family in the room, wanting to do vital signs later.
[2020-02-13] MEDS: LORazepam 2 mg/mL INJ 1 mL 1 MG IVP ×3 (03:00→20:59)
[2020-02-13 08:08] VITALS: RESP 16
[2020-02-13] MEDS: morphine 4 mg/mL SDV 1 mL 2 MG IVP (08:08)
[2020-02-13 08:16] VITALS: RESP 28
--- NOTE | 2020-02-13 08:23 | P.PN_ITS ---
Subjective Subjective: Interval history: Patient appears comfortable in bed at time of exam this morning. RN at bedside, reported that patient was pulling at telemetry this morning, therefore it was discontinued. had requested it be placed last night when she left for home. not at bedside this morning, will discuss further by phone Vitals/I&O/Wt Last Vital Signs Temp 97.6 F 02/12/20 10:17 Pulse 96 02/12/20 15:58 Resp 28 H 02/13/20 08:16 BP 139/87 02/12/20 10:17 Pulse Ox 96 02/12/20 14:17 02/12/20 02/13/20 02/13/20 22:59 06:59 14:59 Output Total 250 / 250 Balance -250 / -250 Weight last 48 hrs Weight 79.379 kg Physical Exam Narrative: EXAM NARRATIVE: Patient resting and appears comfortable in bed at time of exam. Full physical exam deferred as patient is on comfort care and do not wish to cause any potential discomfort Respirations are shallow Lethargic Urinary Catheter Management^: Steen: Cath Placed During This Visit: yes Reason for Continuing Indwelling Catheter: Other Urinary Catheter Date of Insertion: 02/12/20 Urinary Catheter Time of Insertion: 05:15 Data : 02/12/20 03:50 02/12/20 03:50 Micro: Microbiology 02/12/20 04:43 Blood Culture - Preliminary Blood NEGATIVE TO DATE 02/12/20 05:00 Blood Culture - Preliminary Blood NEGATIVE TO DATE A&P Assessment and plan (1) Acute metabolic encephalopathy: Acute metabolic encephalopathy with concern for sepsis, acute liver and acute renal failure Continue with comfort care measures as discussed with patients and daughter on admission. Morphine and Ativan as needed for pain or air hunger Atropine drops as needed for congestion Case management consultation Status: Acute (2) Acute hyperkalemia: Nephrology consult cancelled due to change in care plan, comfort care Status: Acute (3) Acute renal failure: Continue on comfort care as above Status: Acute (4) Acute liver failure: No further evaluation at this time or treatment as patient remains on comfort care Status: Acute (5) CHF (congestive heart failure): Severe systolic congestive heart failure that is chronic in nature with an LVEF of 20% along with mild aortic stenosis Continue comfort care measures at this time Status: Acute Qualifiers: Heart failure chronicity: acute on chronic Heart failure type: systolic Qualified Code(s): I50.23 - Acute on chronic systolic (congestive) heart failure Additional A&P Information Noninvasive comfort care measures: Continue with IV morphine and Ativan as needed for pain and air hunger, if patient loses IV access will transition to sublingual medications. Case management consulted. Expected within 24- 72hr of admission. Continue with pain control and comfort care measures at this time. not at bedside this morning, will call and discuss with her over the phone and also discuss with daughter, Trudi. DVT ppx: NONE due to patient being comfort care Diet: As tolerated Attestations Medical Necessity Statement*: Patient requires further hospitalization due to acute liver failure, acute renal failure, hyperkalemia with acute metabolic encephalopathy while on comfort care measures for the dying patient, patient requires continued hospitalization as do not anticipate the patient would tolerate or survive transport. Coding Level of Care Code Acute Associate Quality Engineer for Janel Sanchez Diagnoses Acute metabolic encephalopathy G93.41 Acute hyperkalemia E87.5 Acute renal failure N17.9 Acute liver failure K72.00 CHF (congestive heart failure) I50.23 Heart failure chronicity: acute on chronic Heart failure type: systolic
--- NOTE | 2020-02-13 10:55 | PC.CHAP ---
Pastoral Care Encounter/Spiritual Assessment Type of Contact [] Declined buffing wheel operator visit [] Patient/Family/Request visit [] Outpatient visit [] Follow-up visit [] Physician referral [] Code/Alert [] Routine visit [] Staff referral [] Actively dying [] Patient sleeping [] Family support [] [] Out of room [] Palliative care [] [] Receiving care in room [] Pre-surgical visit [] Trauma [] Long length of stay [] ICU visit [x] Other: unable to communicate Relational/Emotional Strength [] Patient feels connected with others/family/visitors/staff [] Distress [] Loneliness/isolation [] Abandonment Spirituality of Patient [] Person of Yuliet [] Attends Sikh of their [place]ul[place] [] Believes in Prayer [] Reads Bible or Zoroastrian materials [] There are Spiritual issues to be addressed Online Marketing Strategist Interventions [] Prayer [] Active listening [] Non-anxious presence [] Spiritual/emotional support [] Crisis/trauma care [] Spiritual counseling [] Bereavement support [] Provided bereavement packet [] Provided Bible/devotional materials [] Provided toy/stuffed animal, coloring book to patient or family member [] Provided Communion [] Anointing/Arnold [] Salvation [] Completed spiritual assessment [] Other: Impact on Illness or Injury [] Angry [] Fearful [] Anxious [] Often cries [] Exhaustion [] Unable to work [] Unable to attend zoroastrianism [] Unable to walk/stand [] Unable to read [] Unable to drive [] Unable to eat/drink [] Unable to sleep [] Unable to be with family [] Patient intubated [] Other: Summary unable to communicate Time spent with patient 5 mins
[2020-02-13 16:24] VITALS: RESP 16
--- NOTE | 2020-02-13 18:06 | PC.NURSE ---
SHIFT SUMMARY PATIENT HAS RESTED ALL DAY SINCE THIS NURSE ADMINISTERED MORPHINE AND ATIVAN THIS AM. PATIENT HAD 500ML OF URINE OUTPUT. 0% ORAL INTAKE. PATIENT REMOVED TELEMETRY AND OXYGEN THIS AM. DR. FORD OKAYED TO LEAVE OFF PATIENT. CURRENTLY RESTING IN BED. WAS UPDATED THIS AM BY THIS NURSE AND DR. FORD. HAS NOT BEEN AT BEDSIDE AT ALL TODAY.
--- NOTE | 2020-02-13 18:16 | PC.NURSE ---
PATIENT'S JUST ARRIVED TO THE FLOOR AND IS AT PATIENT'S BEDSIDE.
[2020-02-14] MEDS: LORazepam 2 mg/mL INJ 1 mL 1 MG IVP ×6 (04:05→21:12)
[2020-02-14 07:33] VITALS: RESP 16
[2020-02-14] MEDS: morphine 4 mg/mL SDV 1 mL 2 MG IVP ×3 (07:33→22:15)
[2020-02-14 07:55] VITALS: PULSE 118; RESP 20; TEMP 36.3; O2SAT 88
--- NOTE | 2020-02-14 11:34 | P.PN_ITS ---
Subjective Subjective: Interval history: Patient sleeping comfortably in bed at time of exam. Appeared to be in no acute distress. Discussed with patient nurse at bedside, reported the patient is doing well with anxiety and pain medicine at this time. Vitals/I&O/Wt Last Vital Signs Temp 97.3 F L 02/14/20 07:55 Pulse 118 H 02/14/20 07:55 Resp 20 H 02/14/20 07:55 BP 139/87 02/12/20 10:17 Pulse Ox 88 L 02/14/20 07:55 02/13/20 02/14/20 02/14/20 22:59 06:59 14:59 Output Total 500 / 500 700 / 1200 Balance -500 / -500 -700 / -1200 Physical Exam Narrative: EXAM NARRATIVE: Patient resting comfortably in bed, in no acute distress at time of exam. Patient does not arouse to voice and does not respond to name, remains lethargic. No further physical exam performed due to patient being on comfort care measures Urinary Catheter Management^: Steen: Cath Placed During This Visit: yes Reason for Continuing Indwelling Catheter: Other Urinary Catheter Date of Insertion: 02/12/20 Urinary Catheter Time of Insertion: 05:15 Data : 02/12/20 03:50 02/12/20 03:50 Micro: Microbiology 02/12/20 05:13 Urine Culture - Final Urine,Clean Catch A&P Assessment and plan (1) Acute metabolic encephalopathy: Acute metabolic encephalopathy with concern for sepsis, acute liver and acute renal failure Continue with comfort care measures as discussed with patients and daughter on admission. Morphine and Ativan as needed for pain or air hunger Atropine drops as needed for congestion Case management consultation Status: Acute (2) Acute hyperkalemia: Nephrology consult cancelled due to change in care plan, comfort care Status: Acute (3) Acute renal failure: Continue on comfort care as above Status: Acute (4) Acute liver failure: No further evaluation at this time or treatment as patient remains on comfort care Status: Acute (5) CHF (congestive heart failure): Severe systolic congestive heart failure that is chronic in nature with an LVEF of 20% along with mild aortic stenosis Continue comfort care measures at this time Status: Acute Qualifiers: Heart failure chronicity: acute on chronic Heart failure type: systolic Qualified Code(s): I50.23 - Acute on chronic systolic (congestive) heart fail ure Additional A&P Information Noninvasive comfort care measures: Continue with IV morphine and Ativan along with glycopyrrolate or atropine drops as needed for congestion. Patient resting comfortably in bed at time of exam this morning. Will call and update patient's today, she has been visiting in the evenings. Allowed to visit at any time. Continue with comfort care measures for the dying patient DVT ppx: NONE due to patient being comfort care Diet: As tolerated Attestations Medical Necessity Statement*: Continue with comfort care measures for the dy ing patient, patient requires continued hospitalization, would not tolerate transport out of facility Coding Level of Care Code Acute Habilitation Assistant for [facility] Fwd Diagnoses Acute metabolic encephalopathy G93.41 Acute hyperkalemia E87.5 Acute renal failure N17.9 Acute liver failure K72.00 CHF (congestive heart failure) I50.23 Heart failure chronicity: acute on chronic Heart failure type: systolic
[2020-02-14 21:11] VITALS: RESP 16
[2020-02-14 22:15] VITALS: RESP 18
[2020-02-14] MEDS: lidocaine 2% Urojet 20 mL (23:02)
[2020-02-15 00:07] VITALS: RESP 18
[2020-02-15] MEDS: morphine 4 mg/mL SDV 1 mL 2 MG IVP ×7 (00:07→16:56)
[2020-02-15] MEDS: LORazepam 2 mg/mL INJ 1 mL 1 MG IVP ×7 (00:08→16:58)
[2020-02-15 03:49] VITALS: RESP 22
--- NOTE | 2020-02-15 04:15 | PC.NURSE ---
Received report from day shift nurse, introduced myself to patients and explained that I would be back to check on him after making rounds with my other patients. While making rounds on other patients, DANNY Page came to me and reported that the patients was leaving for the night and that the patient was messing with his penis and his foreskin was retracted and swollen. Upon hearing this RN went to patients room and assessed his sam area. While assessing RN found patients foreskin to be pulled back and swollen leaving the head of the penis purple, swollen, and unable to have foreskin pulled back down. First attempt to pull foreskin back over head of penis caused a large amount of discomfort for patient. At this time RN called supervisor electronics processing hospitalist Dr. Barr and reported the situation to him. Doctor suggested calling [facility] urologist Dr. Escalante, however he was found to be on vacation and unavailable when called. This was reported back to Dr. Barr and he then came up and assessed the patient. Upon assessment orders were given to pull blunt catheter out, administer lidocaine to head of penis and foreskin, and apply ice and pressure. All orders were followed by Tricia DEMARCO, BSN with help of DANNY Page and GIANCARLO Nunes. After 2.5 hours of applying ice and pressure, GIANCARLO Nunes was able to pull foreskin back over the head of the penis. Dr. Barr notified and no new orders received. Since pulling catheter patient has become incontinent and voided 1 time. No other needs assessed and patient was continued to be monitored.
--- NOTE | 2020-02-15 05:32 | PC.NURSE ---
This web content writer sat with the patient while applying ice to genitals to bring the swelling down. Eventually about 2 hours later I was able to pull the skin down over the penis.
--- NOTE | 2020-02-15 07:43 | PC.NURSE ---
Patient resting comfortably in bed. Depends is dry. NC in place.
--- NOTE | 2020-02-15 09:48 | P.PN_ITS ---
Subjective Subjective: Interval history: Patient resting in bed. Increased upper airway secretions and shallow respirations RN at bedside given atropine drops and morphine and Ativan Vitals/I&O/Wt Last Vital Signs Temp 97.3 F L 02/14/20 07:55 Pulse 118 H 02/14/20 07:55 Resp 22 H 02/15/20 03:49 BP 139/87 02/12/20 10:17 Pulse Ox 88 L 02/14/20 07:55 02/14/20 02/15/20 02/15/20 22:59 06:59 14:59 Output Total 1250 / 1250 Balance -1250 / -1250 Physical Exam Narrative: EXAM NARRATIVE: Patient lethargic, shallow respirations and incre ased upper airway secretions. Full exam deferred as patient is on comfort care Urinary Catheter Management^: Steen: Cath Placed During This Visit: yes Reason for Continuing Indwelling Catheter: Other Urinary Catheter Date of Insertion: 02/12/20 Urinary Catheter Time of Insertion: 05:15 Data : 02/12/20 03:50 02/12/20 03:50 Micro: Microbiology 02/12/20 05:13 Urine Culture - Final Urine,Clean Catch A&P Assessment and plan (1) Acute metabolic encephalopathy: Acute metabolic encephalopathy with concern for sepsis, acute liver and acute renal failure Continue with comfort care measures, patient has shallow respirations and increased secretions today Morphine and Ativan as needed for pain or air hunger Atropine drops as needed for congestion Case management consultation Status: Acute (2) Acute hyperkalemia: Nephrology consult cancelled due to change in care plan, comfort care Status: Acute (3) Acute renal failure: Continue on comfort care as above Status: Acute (4) Acute liver failure: No further evaluation at this time or treatment as patient remains on comfort care Status: Acute (5) CHF (congestive heart failure): Severe systolic congestive heart failure that is chronic in nature with an LVEF of 20% along with mild aortic stenosis Continue comfort care measures at this time Status: Acute Qualifiers: Heart failure chronicity: acute on chronic Heart failure type: systolic Qualified Code(s): I50.23 - Acute on chronic systolic (congestive) heart failure Additional A&P Information Noninvasive comfort care measures: Continue with IV morphine and Ativan along with atropine drops as needed for congestion. Patient's family not at bedside, discussed with by phone yesterday, she did come in to visit last night. Will discuss with her again today. Patient has shallow respirations and increased upper airway secretions. Continue with comfort care measures DVT ppx: NONE due to patient being comfort care Diet: As tolerated Attestations Medical Necessity Statement*: Patient requires continued hospitalization for comfort care measures Coding Level of Care Code Acute Curriculum And Instruction Director for [facility] Diagnoses Acute metabolic encephalopathy G93.41 Acute hyperkalemia E87.5 Acute renal failure N17.9 Acute liver failure K72.00 CHF (congestive heart failure) I50.23 Heart failure chronicity: acute on chronic Heart failure type: systolic
--- NOTE | 2020-02-15 09:57 | PC.SOCIAL ---
IMM Not Update Pg 2 of IMM not updated r/t to patient being on comfort measures and family not at bedside.
[2020-02-15] MEDS: glycopyrrolate 0.2 mg/mL SDV 2 mL 0.1 MG IV (14:31)
[2020-02-15 17:51] VITALS: PULSE 135; O2SAT 92
--- NOTE | 2020-02-15 23:46 | PC.NURSE ---
When speaking with patient's , she requested that if patient passes during the night, she would like to be notified the morning after and not during the night when patient passes.
[2020-02-16 00:07] VITALS: RESP 26
[2020-02-16] MEDS: glycopyrrolate 0.2 mg/mL SDV 2 mL 0.1 MG IV ×2 (00:07→05:35)
[2020-02-16] MEDS: morphine 4 mg/mL SDV 1 mL 2 MG IVP ×2 (00:07→05:34)
[2020-02-16] MEDS: LORazepam 2 mg/mL INJ 1 mL 1 MG IVP ×2 (00:08→05:34)
[2020-02-16 05:34] VITALS: RESP 32
[2020-02-16 12:45] VITALS: PULSE 138; O2SAT 88
--- NOTE | 2020-02-16 15:27 | PM.PN ---
Subjective Subjective: Interval history: Patient appears comfortable at time of exam this morning Vitals/I&O/Wt Last Vital Signs Temp 97.3 F L 02/14/20 07:55 Pulse 138 H 02/16/20 12:45 Resp 32 H 02/16/20 05:34 BP 139/87 02/12/20 10:17 Pulse Ox 88 L 02/16/20 12:45 Physical Exam Narrative: EXAM NARRATIVE: Detailed physical exam deferred as patient is on comfort care measures Urinary Catheter Management^: Steen: Cath Placed During This Visit: yes Reason for Continuing Indwelling Catheter: Other Urinary Catheter Date of Insertion: 02/12/20 Urinary Catheter Time of Insertion: 05:15 Data : 02/12/20 03:50 02/12/20 03:50 A&P Assessment and plan (1) Acute metabolic encephalopathy: Acute metabolic encephalopathy with concern for sepsis, acute liver and acute renal failure Continue with comfort care measures, patient has shallow respirations and increased secretions today Morphine and Ativan as needed for pain or air hunger Atropine drops as needed for congestion Case management consultation Status: Acute (2) Acute hyperkalemia: Nephrology consult cancelled due to change in care plan, comfort care Status: Acute (3) Acute renal failure: Continue on comfort care as above Status: Acute (4) Acute liver failure: No further evaluation at this time or treatment as patient remains on comfort care Status: Acute (5) CHF (congestive heart failure): Severe systolic congestive heart failure that is chronic in nature with an LVEF of 20% along with mild aortic stenosis Continue comfort care measures at this time Status: Acute Qualifiers: Heart failure chronicity: acute on chronic Heart failure type: systolic Qualified Code(s): I50.23 - Acute on chronic systolic (congestive) heart failure Additional A&P Information Noninvasive comfort care measures: Continue with IV morphine and Ativan along with atropine drops as needed for congestion. Patient's family not at bedside at time of exam. We will continue with comfort care measures, glycopyrrolate added for secretions. Patient appears to be comfortable today. DVT ppx: NONE due to patient being comfort care Diet: As tolerated Attestations Medical Necessity Statement*: Patient requires hospitalization due to end-of-life care requiring comfort care measures Coding Level of Care Code Acute Stock Control Clerk for [facility] Diagnoses Acute metabolic encephalopathy G93.41 Acute hyperkalemia E87.5 Acute renal failure N17.9 Acute liver failure K72.00 CHF (congestive heart failure) I50.23 Heart failure chronicity: acute on chronic Heart failure type: systolic
[2020-02-17 02:45] VITALS: RESP 28
[2020-02-17] MEDS: morphine 4 mg/mL SDV 1 mL 2 MG IVP ×3 (02:45→11:06)
--- NOTE | 2020-02-17 02:47 | PC.NURSE ---
AGITATION/PAIN For first time this shift became sl agitated with changing and repositioning. Flailing arms around and for first time had eyes open. Medicated with IV Morphine and SL Atropine drops for secretions.
[2020-02-17 05:06] VITALS: RESP 24
[2020-02-17 05:07] VITALS: PULSE 138; O2SAT 91
[2020-02-17] MEDS: lanolin oint 7 gm 1 APPLIC TOPICAL (05:17)
--- NOTE | 2020-02-17 06:33 | PC.NURSE ---
SHIFT SUMMARY First half of shift pt was fairly unresponsive. Latter part of shift started opening eyes and moaning with repostioning. Some slight agitation with repositioning. Had good relief with IV Morphine given. Have used Atropine drops SL couple of times as well for secretions. Mouth is very dry and have done good oral care with each position change. Lanolin obtained and used on dry lips. Has been incont of urine several times. Has redness to sam/sacral and groin areas. Using Aloe ointment. Kerlex wrap drsg to lower left leg. Optifoam to right buttocks
[2020-02-17 11:06] VITALS: RESP 32
[2020-02-17] MEDS: LORazepam 2 mg/mL INJ 1 mL 1 MG IVP (11:08)
--- NOTE | 2020-02-17 18:38 | P.PN_ITS ---
Subjective Subjective: Interval history: He is unresponsive. Somewhat irregular breathing through open mouth. Vitals/I&O/Wt Last Vital Signs Temp 97.3 F L 02/14/20 07:55 Pulse 138 H 02/17/20 05:07 Resp 32 H 02/17/20 11:06 BP 139/87 02/12/20 10:17 Pulse Ox 91 02/17/20 05:07 02/17/20 02/17/20 02/17/20 06:59 14:59 22:59 Intake Total 0 / 0 Output Total Balance 0 / 0 -1 / -1 Physical Exam 2 Const: COMMON NORMALS: negative for patient oriented x3 ORIENTATION/CONSCIOUSNESS: Yes patient obtunded HENMT: MOUTH: other (Dry mucous membranes) Neck/C-Spine: COMMON NORMALS: no JVD Resp: EFFORT & INSPECTION: Yes paradoxical thoraco-abdominal movements Cardio: COMMON NORMALS: no JVD, regular rhythm, S1 normal heart sound present, S2 normal heart sound present and No murmurs present (Cardio) RHYTHM: regular rhythm HEART SOUNDS: S1 normal heart sound present and S2 normal heart sound present GI: COMMON NORMALS: Normal to inspection, nondistended, normoactive bowel sounds present and Soft to palpation PALPATION: Yes Soft to palpation Extremity: COMMON NORMALS: no joint enlargement and no pedal edema NARRATIVE EXTREMITY EXAM: Some mottling of distal arms and hands Neuro: COMMON NORMALS: negative for patient oriented x3 Urinary Catheter Management^: Steen: Cath Placed During This Visit: yes Reason for Continuing Indwelling Catheter: Other Urinary Catheter Date of Insertion: 02/12/20 Urinary Catheter Time of Insertion: 05:15 Data : 02/12/20 03:50 02/12/20 03:50 Micro: Microbiology 02/12/20 04:43 Blood Culture - Final Blood NO GROWTH AFTER 5 DAYS 02/12/20 05:00 Blood Culture - Final Blood NO GROWTH AFTER 5 DAYS A&P Assessment and plan (1) Need for comfort care: Ativan added for some restlessness. He is not responsive or following commands during my examination. Somewhat irregular breathing through open mouth. During my visit does not appear in pain. was able to say a few things to him through the phone yesterday. Status: Acute (2) Acute metabolic encephalopathy: Acute metabolic encephalopathy with concern for sepsis, acute liver and acute renal failure Status: Acute (3) Acute hyperkalemia: Comfort care Status: Acute (4) Acute renal failure: Continue on comfort care as above Status: Acute (5) Acute liver failure: No further evaluation at this time or treatment as patient remains on comfort care Status: Acute (6) CHF (congestive heart failure): Severe systolic congestive heart failure that is chronic in nature with an LVEF of 20% along with mild aortic stenosis Continue comfort care measures at this time Status: Acute Qualifiers: Heart failure chronicity: acute on chronic Heart failure type: systolic Qualified Code(s): I50.23 - Acute on chronic systolic (congestive) heart failure Additional A&P Information DVT ppx: NONE due to patient being comfort care Diet: As tolerated Attestations Medical Necessity Statement*: Continue admission for end-of-life comfort care. Coding Level of Care Code Acute Database Administrator for [facility] Diagnoses Need for comfort care Acute metabolic encephalopathy G93.41 Acute hyperkalemia E87.5 Acute renal failure N17.9 Acute liver failure K72.00 CHF (congestive heart failure) I50.23 Heart failure chronicity: acute on chronic Heart failure type: systolic
[2020-02-18 00:20] VITALS: RESP 26
[2020-02-18] MEDS: morphine 4 mg/mL SDV 1 mL 2 MG IVP (00:20)
[2020-02-18 02:41] VITALS: RESP 24
[2020-02-18 04:42] VITALS: RESP 24
--- NOTE | 2020-02-18 06:31 | PC.NURSE ---
SHIFT SUMMARY Pt remains on comfort care. Has been repositioned q2h and continues to be incont good amts of urine with pretty much every turn. Opens eyes, moans and flails arms around when moved. Medicated with IV Morphine then changed to oral Morphine SL when IV became apparently tender with flushing and med pushed. IV was discontinued. Oral care freq. Breathes with mouth open and mouth is very dry. Dried secretions removed with cleaning. Has rattly sounding cough and resp occ. Atropine drops used but do not help much. Attempted to sx with yankeurs but unable to obtain secretions.
--- NOTE | 2020-02-18 07:49 | DCPLANNER ---
Attempted to give pt an IM yesterday but no family was in the room. Also attempting to be sensitive to pt's status at this time as it doesn't appear appropriate to offer family an opportunity to appeal d/c since he is declining. Should we need to move him from this facility; we will discuss opportunity with family.
--- NOTE | 2020-02-18 08:12 | PC.NURSE ---
This nurse was informed pt was in vtach on the monitor. This nurse, along with Barb Devine RN and Kimmie Mane RN assessed pt. Radial or carotid pulse palpated and none felt. Apical heart sounds auscultated and none heard. Pt was noted to have pulseless activity at 0750. Physician, housekeeper/laundry assistant, and family notified.
--- NOTE | 2020-02-18 10:48 | PM.DDS ---
Discharge Providers DDS Date of Admission: 02/12/20 09:07 Date Summary Completed: 02/18/20 Attending Provider at Admission: Marlen Slade DO Time of : 07:50 Attending Provider at Discharge: Evin GARNER Diagnoses Hospital Diagnoses (1) Need for comfort care: (2) Acute metabolic encephalopathy: (3) Acute hyperkalemia: (4) Acute renal failure: (5) Acute liver failure: (6) CHF (congestive heart failure): Problem details: LVEF 25% Qualifiers: Heart failure chronicity: acute on chronic Heart failure type: systolic Qualified Code(s): I50.23 - Acute on chronic systolic (congestive) heart failure Reason for Visit Reason for Visit: AMS/ HYPOTENSION Summary Date and Time of : Date of : 02/18/20 Time of : 07:50 Summary: Summary: 79-year-old gentleman with systolic congestive heart failure, severe cardiomyopathy, EF 25%, aortic stenosis, PAD, atrial fibrillation, cognitive dysfunction, HTN, hypothyroidism, TAMI, other chronic conditions, admitted due to increasing shortness of breath, altered mental status, found to be hypotensive, noted in acute liver failure, renal failure, congestive heart failure. His critical condition, underlying comorbidities, as well as prognosis were discussed with family, who made the decision to switch him over to comfort measures only. He received supportive care, and peacefully on 02/17 at 7:50 in the morning. Additional Data: Advance directives?: No (unknown) Discharge Plan Discharge Patient Disposition: Condition: Prescriptions: No Action furosemide 40 mg Tablet 40 mg PO DAILY Qty: 30 RF: 0 aspirin 325 mg Tablet 325 mg PO DAILY Qty: 30 RF: 0 ciprofloxacin HCl 500 mg Tablet 500 mg PO BID 10 Days Qty: 20 RF: 0 Santyl 250 unit/gram Ointment 1 applic topical DAILY Qty: 30 RF: 0 potassium chloride 10 mEq Tablet Extended Release 40 meq PO DAILY Qty: 30 RF: 0 metoprolol tartrate 50 mg Tablet 50 mg PO Q12H Qty: 30 RF: 0 diltiazem HCl 120 mg capsule,extended release 24 hr 120 mg PO DAILY Qty: 30 RF: 0 [place] Thyroid 60 mg tablet 60 mg PO DAILY Qty: 30 RF: 0 tamsulosin 0.4 mg capsule 0.4 mg PO DAILY Qty: 30 RF: 0 DS Attestations Time Spent in /Discharge Care*: greater than 30 min Quality - AMI: AMI present?: No Quality - Stroke: CVA present?: No Symptom Onset Unknown: No Quality - VTE: VTE present?: No Deep Vein Thrombosis/Pulmonary Embolism Present on Admission: No Coding Level of Care Code Acute Food Photographer for [facility] Diagnoses Need for comfort care Acute metabolic encephalopathy G93.41 Acute hyperkalemia E87.5 Acute renal failure N17.9 Acute liver failure K72.00 CHF (congestive heart failure) I50.23 Heart failure chronicity: acute on chronic Heart failure type: systolic
--- NOTE | 2020-02-18 10:51 | PC.NURSE ---
Call placed to [facility] in [place] per 's (Zuleima Dong )request. They are unable to accept the pt as a donation d/t the open wounds on the pts legs. I have attempted to reach the via phone and am unable to leave a message. I will continue to reach her for further information on which home she would like for the pt to go to.
--- NOTE | 2020-02-18 11:04 | PC.NURSE ---
I spoke with [facility] again after Amy denied pt. They released the body also.
--- NOTE | 2020-02-18 11:22 | PC.CHAP ---
Pastoral Care Encounter/Spiritual Assessment Type of Contact [] Declined research computing specialist visit [] Patient/Family/Request visit [] Outpatient visit [] Follow-up visit [] Physician referral [] Code/Alert [] Routine visit [] Staff referral [] Actively dying [] Patient sleeping [] Family support [] [] Out of room [] Palliative care [] [] Receiving care in room [] Pre-surgical visit [] Trauma [] Long length of stay [] ICU visit [X] Other: support to staff Relational/Emotional Strength [] Patient feels connected with others/family/visitors/staff [] Distress [] Loneliness/isolation [] Abandonment Spirituality of Patient [] Person of Yuliet [] Attends Jehovah'S Witness of their [place]ul[place] [] Believes in Prayer [] Reads Bible or Buddhist materials [] There are Spiritual issues to be addressed Cover Stitch Machine Operator Interventions [] Prayer [] Active listening [] Non-anxious presence [] Spiritual/emotional support [] Crisis/trauma care [] Spiritual counseling [] Bereavement support [] Provided bereavement packet [] Provided Bible/devotional materials [] Provided toy/stuffed animal, coloring book to patient or family member [] Provided Communion [] Anointing/Accord [] Salvation [] Completed spiritual assessment [] Other: Impact on Illness or Injury [] Angry [] Fearful [] Anxious [] Often cries [] Exhaustion [] Unable to work [] Unable to attend congregation [] Unable to walk/stand [] Unable to read [] Unable to drive [] Unable to eat/drink [] Unable to sleep [] Unable to be with family [] Patient intubated [] Other: Summary: During my rounds, a therapist let me know that pt had . I learned who his nurse was and met with her to discuss the , how she was doing, and the family situation. Time spent with patient: Time spent with nurse was 5 - 10 mins
--- NOTE | 2020-02-18 11:45 | PC.NURSE ---
Addendum entered by Anayeli Miranda RN 02/18/20 14:09: I spoke with Zuleima the pts and she would like for [facility] in [facility] to be contacted. She states that she had paperwork filed with them for donation. Original Note: I spoke with and she states that she
--- NOTE | 2020-02-18 14:11 | PC.NURSE ---
I was unable to get [facility]hold [facility]. I spoke with social media analyst and was told that if the body was not already accepted then chances are they would not take him. I called the back and explained this to her. She wants him kept here until a decision can be made. I explained the issue with us holding the body d/t a small area. She asked if I would contact [facility] home and see if they would hold the body. I did contact [facility] and was informed that they it was best to keep the body here until a decision had been made. Zuleima, the was contacted again and informed of the information. She is going to attempted to call [facility] tomorrow. I let her know that I would be working tomorrow and she could call and let me know what she found out. If I haven't heard from her by 1200 I will call her.
--- NOTE | 2020-02-19 11:09 | PC.NURSE ---
I have spoke with the pts and she is still trying to decide where she would like for the pt to go. [facility] will not take the body d/t sepsis. She is to call me back.
--- NOTE | 2020-02-19 14:59 | PC.NURSE ---
The pts called back and states that she spoke with her daughter, a physician, and would like the words sepsis not placed on the certificate. I spoke with social worker assistant and they did not have any ideas about what to do. I then went back to Bette Farr and she emailed the attending physician asking for the word sepsis to not be used on the certificate. I am awaiting word back from Bette.
--- NOTE | 2020-02-19 15:33 | PC.SOCIAL ---
spoke with dye house supervisor a few times due to not wanting Sepsis to be on the certificate so that body can be donated. Corresponded with Dr Samuels as well regarding this and he indicates Sepsis will need to be a dx listed. Dr Samuels then called this nurse and explained the reason Sepsis is noted to be a diagnosis is due to multiple reasons: Encephalopathy, Hypotension, elevated WBC and shortly after arrival patient experienced tachypnea, tachycardia and also experiencing multiple organ failure. Called and explained this in detail to her the physician medical opinion. Explained that if her daughter who is a physician would like the provider to call her he is willing to do so. explained well I guess wont be able to donate his body and I'm not going to do a . What are my options cremation? This nurse explained that is an option and asked next steps. This nurse explained to pick a home and they will continue with this plan to start cremation. was agreeable. Called Anayeli the dye house supervisor and explained to her this information and chose [facility] in [place]. indicates if they need to call her to confirm they may do so. Anayeli verbalized understanding and will call home.
--- NOTE | 2020-02-19 15:36 | PC.NURSE ---
Bette called and stated that the pts body could be released to [facility] in [place]. She spoke with the .
== END 2020-02-18 07:50 | disposition expired | DRG 951 ==
LOC: ER 06:53 → MEDSURG 09:33
PROVIDERS: Emergency Medicine; Admitting Provider Family Medicine; Emergency Provider Family Medicine; Visit Provider Internal Medicine
DX: Z51.5 Encounter for palliative care (principal); I50.23 Acute on chronic systolic (congestive) heart failure; G93.41 Metabolic encephalopathy; K72.00 Acute and subacute hepatic failure without coma; I48.92 Unspecified atrial flutter; R18.8 Other ascites; I24.8 Other forms of acute ischemic heart disease; N17.9 Acute kidney failure, unspecified; E03.9 Hypothyroidism, unspecified; I11.0 Hypertensive heart disease with heart failure; I73.9 Peripheral vascular disease, unspecified; M10.9 Gout, unspecified; N28.9 Disorder of kidney and ureter, unspecified; G47.33 Obstructive sleep apnea (adult) (pediatric); I35.0 Nonrheumatic aortic (valve) stenosis; I48.91 Unspecified atrial fibrillation; F03.90 Unspecified dementia, unspecified severity, without behavioral disturbance, psychotic disturbance, mood disturbance, and anxiety; Z66 Do not resuscitate; E87.5 Hyperkalemia; I95.9 Hypotension, unspecified
CPT/HCPCS: 12345; 36416; 36600; 51702; 70450; 71045; 74176; 80053; 81001; 81003; 82803; 82962; 83605; 83880; 84484; 85025; 85610; 85730; 87040; 87086; 93005; 94660; 96375; 99284; J0610; J1815; J1956; J2060; J2270; J3490; J7030; J7040